=== PATIENT | female | born 1975 | race Two or more races ===

== ENCOUNTER 2020-09-06 08:37 | Outpatient (REF) | payer OTHER, SELFPAY | END 2020-09-06 08:38 | disposition home or self-care (01) | LOC: HO.LAB 08:37 | PROVIDERS: Visit Provider Nurse Practitioner Family | DX: Z20.828 Contact with and (suspected) exposure to other viral communicable diseases (principal) | CPT/HCPCS: U0003 ==

== ENCOUNTER 2020-09-06 08:42 | Outpatient (REF) | payer OTHER, SELFPAY ==
--- NOTE | 2020-09-06 08:49 | XR_ITS ---
EXAMINATION: XR CHEST CLINICAL INFORMATION: J06.9 - Acute upper respiratory infection, unspecified COMPARISON: None TECHNIQUE: 2 views of the chest were obtained. FINDINGS: The lungs are clear. There is no airspace consolidation or groundglass opacity or effusion. The costophrenic sulci are well-defined. The heart is normal in size. Tapering at the cardiac apex is consistent with incidental areolar tissue. The hilar and mediastinal contours are normal. Bony structures are unremarkable. XR/XR chest 2V IMPRESSION: Unremarkable examination.
== END 2020-09-06 08:43 | disposition home or self-care (01) ==
LOC: HO.HMGCX 08:42
PROVIDERS: PCP Internal Medicine; Visit Provider Nurse Practitioner Family
DX: J06.9 Acute upper respiratory infection, unspecified (principal); Z20.828 Contact with and (suspected) exposure to other viral communicable diseases
CPT/HCPCS: 71046

== ENCOUNTER 2020-12-19 09:36 | Outpatient (REF) | payer OTHER, SELFPAY ==
[2020-12-19 10:27] LABS: MANUAL DIFF FLAG NO
[2020-12-19 10:33] LABS: Basophils Percent Auto 0.5 % (0-2); Eosinophils Absolute Auto 0.1 X10*3/uL (0.0-0.4); Eosinophils Percent Auto 1.2 % (0-4); Hematocrit 43.8 % (37-47); Hemoglobin 14.4 g/dl (12.0-16.0); Imm Gran Abs Auto 0.02 X10*3/uL (0.00-0.03); Imm Gran Pct Auto 0.3 % (0.0-0.4); Lymphocytes Absolute Auto 1.8 X10*3/uL (1.2-4.9); Lymphocytes Percent Auto 24.8 % (20-40); Mean Corpuscular HGB Conc 32.9 g/dl (31.0-35.0); Mean Corpuscular Hemoglobin 30.9 pg (27.0-33.0); Mean Platelet Volume 10.5 fL (9.4-12.3); Monocytes Absolute Auto 0.5 X10*3/uL (0.1-1.2); Monocytes Percent Auto 6.6 % (2-11); Neutrophils Absolute Auto 4.9 X10*3/uL (2.0-8.3); Neutrophils Percent Auto 66.6 % (45-73); Platelet Count 306 X10*3/uL (160-400); Red Blood Count 4.66 X10*6/uL (4.20-5.50); Red Cell Distribution Width 12.9 % (11.0-16.0); White Blood Count 7.3 X10*3/uL (4.8-10.8)
[2020-12-19 11:22] LABS: Thyroid Stimulating Hormone 0.54 uIU/mL (0.32-4.0)
[2020-12-25 13:11] LABS: Vitamin D 25-OH, D2 <4 ng/mL; Vitamin D 25-OH, D3 6 ng/mL; Vitamin D 25-OH, Total 6 ng/mL (30-100)
== END 2020-12-19 09:37 | disposition home or self-care (01) ==
LOC: HO.LAB 09:36
PROVIDERS: PCP Internal Medicine; Visit Provider Internal Medicine
DX: D64.9 Anemia, unspecified (principal); R53.83 Other fatigue; E55.9 Vitamin D deficiency, unspecified
CPT/HCPCS: 36415; 82306; 84443; 85025

== ENCOUNTER 2021-03-29 06:00 | Outpatient (REF) | payer OTHER, SELFPAY ==
[2021-03-29 14:35] LABS: Glucose Urine UA NEG (NEG); Leukocyte Esterase Urine 2+ (NEG); Nitrite Urine NEG (NEG); Specific Gravity - Urine <= 1.005 (1.005-1.025); UACC Culture Trigger YES; Urine Blood TRACE (NEG); Urine Ketones NEG (NEG); Urine Protein NEG (NEG-TRACE)
[2021-03-29 14:37] LABS: Appearance Urine HAZY; Color Urine YELLOW
[2021-03-29 14:53] LABS: Bacteria Urine 1+ /LPF; Squamous Epithelial Cell Urine 2+ /LPF
== END 2021-03-29 06:01 | disposition home or self-care (01) ==
LOC: HO.LAB 06:00
PROVIDERS: PCP Internal Medicine; Visit Provider Internal Medicine
DX: R30.0 Dysuria (principal)
CPT/HCPCS: 81001; 81003; 87086

== ENCOUNTER 2021-05-01 08:48 | Outpatient (REF) | payer OTHER, SELFPAY ==
[2021-05-04 02:56] LABS: HPV mRNA E6/E7 rflx Not Detected (Not Detected)
== END 2021-05-01 08:49 | disposition home or self-care (01) ==
LOC: HO.LAB 08:48
PROVIDERS: PCP Internal Medicine; Visit Provider Obstetrics & Gynecology
DX: Z01.419 Encounter for gynecological examination (general) (routine) without abnormal findings (principal); Z11.51 Encounter for screening for human papillomavirus (HPV)
CPT/HCPCS: 87624; 88142

== ENCOUNTER 2021-05-11 05:58 | Outpatient (REF) | payer OTHER, SELFPAY ==
[2021-05-11 07:30] LABS: Glucose Urine UA NEG (NEG); Leukocyte Esterase Urine TRACE (NEG); Nitrite Urine NEG (NEG); PH 6.5 (5.0-8.0); Specific Gravity - Urine 1.015 (1.005-1.025); UACC Culture Trigger YES; Urine Blood TRACE (NEG); Urine Ketones NEG (NEG); Urine Protein NEG (NEG-TRACE)
[2021-05-11 07:34] LABS: Appearance Urine HAZY; Color Urine YELLOW
[2021-05-11 08:20] LABS: Bacteria Urine 1+ /LPF; Mucus Urine 1+ /LPF; Squamous Epithelial Cell Urine 3+ /LPF
== END 2021-05-11 05:59 | disposition home or self-care (01) ==
LOC: HO.LAB 05:58
PROVIDERS: PCP Internal Medicine; Visit Provider Internal Medicine
DX: R30.0 Dysuria (principal)
CPT/HCPCS: 81001; 87086

== ENCOUNTER 2021-06-28 15:11 | Outpatient (REF) | payer OTHER, SELFPAY | END 2021-06-28 15:12 | disposition home or self-care (01) | LOC: HO.LAB 15:11 | PROVIDERS: PCP Internal Medicine; Visit Provider Internal Medicine | DX: Z13.89 Encounter for screening for other disorder (principal) ==

== ENCOUNTER 2021-06-29 09:24 | Outpatient (REF) | payer OTHER, SELFPAY ==
[2021-06-29 09:36] LABS: Appearance Urine CLOUDY; Color Urine YELLOW; Glucose Urine UA NEG (NEG); Leukocyte Esterase Urine 3+ (NEG); Nitrite Urine NEG (NEG); Specific Gravity - Urine 1.025 (1.005-1.025); UACC Culture Trigger YES; Urine Blood TRACE (NEG); Urine Ketones NEG (NEG); Urine Protein NEG (NEG-TRACE)
[2021-06-29 09:56] LABS: WBC Urine TNTC /HPF (0-4)
[2021-06-29 09:57] LABS: Bacteria Urine 1+ /LPF; Mucus Urine TRACE /LPF
== END 2021-06-29 09:25 | disposition home or self-care (01) ==
LOC: HO.LNP 09:24
PROVIDERS: Visit Provider Internal Medicine
DX: R30.0 Dysuria (principal)
CPT/HCPCS: 81001; 87086; 87147

== ENCOUNTER 2021-09-21 10:50 | Outpatient (REF) | payer OTHER, SELFPAY | END 2021-09-21 10:51 | disposition home or self-care (01) | LOC: HO.LAB 10:50 | PROVIDERS: PCP Internal Medicine; Visit Provider Internal Medicine | DX: Z13.89 Encounter for screening for other disorder (principal) ==

== ENCOUNTER 2021-09-22 10:32 | Outpatient (REF) | payer OTHER, SELFPAY ==
[2021-09-22 10:38] LABS: Appearance Urine CLOUDY; Color Urine YELLOW; Glucose Urine UA NEG (NEG); Leukocyte Esterase Urine 3+ (NEG); Nitrite Urine POS (NEG); UACC Culture Trigger YES; Urine Blood 3+ (NEG); Urine Ketones NEG (NEG); Urine Protein NEG (NEG-TRACE)
[2021-09-22 10:44] LABS: Bacteria Urine 2+ /LPF; Squamous Epithelial Cell Urine 1+ /LPF; WBC Urine TNTC /HPF (0-4)
== END 2021-09-22 10:33 | disposition home or self-care (01) ==
LOC: HO.LNP 10:32
PROVIDERS: Visit Provider Internal Medicine
DX: R30.0 Dysuria (principal)
CPT/HCPCS: 81001; 87086; 87088; 87186

== ENCOUNTER 2021-10-04 09:04 | Emergency (ER) | payer OTHER, SELFPAY ==
--- NOTE | ~2021-10-04 | CT_ITS ---
EXAMINATION: CT BRAIN AND CT ABDOMEN AND PELVIS WITHOUT CONTRAST. CLINICAL INFORMATION: Headache and lightheadedness. Left flank pain, history of UTI. Evaluate for stone or polyp. COMPARISON: None TECHNIQUE: 5 mm thin axial and reformatted 2 mm thin sagittal and coronal images of brain were obtained. Subsequently axial 5 minutes thin and reformatted 3 mm thin sagittal and coronal images of abdomen pelvis were obtained without contrast. DLP 1351. FINDINGS: Brain: There is no acute intra-axial, extra-axial bleed, masses or midline shift. There is no acute infarction in evolution. There is no edema. The lateral ventricles are symmetrical in size and configuration without enlargement. The joe to white matter differentiation is maintained normal. Bone windows reveal no calvarial abnormality.. There is no scalp abnormality seen. Bilateral paranasal sinuses and mastoid air cells are widely patent. Abdomen and pelvis: The lung bases are clear. There is platelike atelectasis in the lingula and the right middle lobe. Heart size is normal. Visualized liver, spleen, pancreas and bilateral adrenal glands are unremarkable. The gallbladder is unremarkable as well. There 2 radiopaque 2 mm calculi is in upper and midpole right kidney and a partially obstructive 4 mm radiopaque calculi left UPJ with mild hydronephrosis. No perinephric stranding seen. The abdominal aorta is normal caliber. No retroperitoneal lymph nodes or mass seen. There is scattered stool, diverticuli and gas seen throughout the colon without significant distention. The small bowel loops are normal caliber. Appendix is not visualized. The abdominal wall appears unremarkable. There is no free air or free fluid. Imaging through the pelvis reveals no significant abnormality. The uterus is anteverted and appears unremarkable. There is no free fluid. Bone windows reveal no lytic or sclerotic process. CT/CT abdomen pelvis wo con IMPRESSION: No acute intracranial process seen. Obstructive 4 mm radiopaque calculi left UPJ with mild hydronephrosis. Nonobstructive radiopaque calculi right kidney. Colonic diverticulosis without diverticulitis. Appendix is not seen.
[2021-10-04 09:38] VITALS: BP 188/113; PULSE 89; RESP 19; TEMP 36.6; O2SAT 99; BMI 34.3
[2021-10-04 13:34] VITALS: BP 159/95; PULSE 79; RESP 12; O2SAT 100
[2021-10-04 13:51] LABS: MANUAL DIFF FLAG NO
[2021-10-04 13:52] LABS: Basophils Percent Auto 0.3 % (0-2); Eosinophils Absolute Auto 0.1 X10*3/uL (0.0-0.4); Eosinophils Percent Auto 1.4 % (0-4); Hematocrit 40.4 % (37.0-47.0); Hemoglobin 13.5 g/dl (12.0-16.0); Imm Gran Abs Auto 0.03 X10*3/uL (0.00-0.03); Imm Gran Pct Auto 0.5 % (0.0-0.4); Lymphocytes Absolute Auto 2.3 X10*3/uL (1.2-4.9); Mean Corpuscular HGB Conc 33.4 g/dl (31.0-35.0); Mean Corpuscular Hemoglobin 30.4 pg (27.0-33.0); Mean Platelet Volume 9.1 fL (9.4-12.3); Monocytes Absolute Auto 0.5 X10*3/uL (0.1-1.2); Monocytes Percent Auto 7.8 % (2-11); Neutrophils Absolute Auto 3.4 x10*3/uL (2.0-8.3); Platelet Count 353 X10*3/uL (160-400); Red Blood Count 4.44 X10*6/uL (4.20-5.50); Red Cell Distribution Width 12.7 % (11.0-16.0); White Blood Count 6.3 X10*3/uL (4.8-10.8)
[2021-10-04 13:53] LABS: Appearance Urine CLOUDY; Color Urine YELLOW; Glucose Urine UA NEG (NEG); Leukocyte Esterase Urine 3+ (NEG); Nitrite Urine POS (NEG); Specific Gravity - Urine 1.015 (1.005-1.025); UACC Culture Trigger YES; Urine Blood 1+ (NEG); Urine Ketones NEG (NEG); Urine Protein NEG (NEG-TRACE)
[2021-10-04] MEDS: 0.9 % Sodium Chloride 1,000 ML 999 ML IV ×2 (13:55→14:36)
[2021-10-04] MEDS: Acetaminophen 325 MG TABLET 650 MG PO (13:57)
[2021-10-04] MEDS: ondansetron HCL 4 MG/2 ML VIAL IVPUSH (13:57)
[2021-10-04 14:05] LABS: Bacteria Urine 3+ /LPF; RBC Urine 0-2 /HPF (0); Squamous Epithelial Cell Urine 2+ /LPF; WBC Urine 50-75 /HPF (0-4)
[2021-10-04 14:09] LABS: Alanine Aminotransferase 62 U/L (0-31); Albumin Level 3.5 g/dL (3.5-5.0); Alkaline Phosphatase 100 U/L (39-117); Anion Gap 12 (12-20); Aspartate Amino Transferase 36 U/L (5-31); Bilirubin Direct 0.2 mg/dL (0.0-0.5); Bilirubin Total 0.6 mg/dL (0.0-1.0); Blood Urea Nitrogen 13 mg/dL (9-16); Carbon Dioxide 27 mmol/L (22-29); Chloride 104 mmol/L (96-108); Creatinine Clr Calc Pharmacy 91.4; Estimated Glomerular Filt Rate > 60; Glucose Random 81 mg/dL (60-115); Lipase 181 U/L (8-78); Magnesium 1.8 mg/dL (1.6-2.6); Potassium 3.7 mmol/L (3.3-5.1); Sodium 139 mmol/L (135-145); Total Protein 7.3 g/dL (6.5-8.0)
--- NOTE | 2021-10-04 14:11 | ED.GENADULT ---
HPI - General Adult General Chief complaint: General Medical Stated complaint: high bp Time Seen by Provider: 10/04/21 13:07 Source: patient Mode of arrival: ambulatory History of Present Illness HPI narrative: 45-year-old female with a past medical history of asthma, diarrhea, depression, fatigue, recent UTI finish course of Macrobid this week, presenting to the ED complaining of persistent urinary frequency, and left flank pain x3 days. Was sent in from PCPs office for hypertension and left flank pain. Also reports headache and lightheadedness/dizziness since UTI diagnosis. Reports compliance with previous antibiotics. Denies fever, chills, vomiting, diarrhea, dysuria, hematuria Onset (ago): day(s) Related Data Home Medications Medication Instructions Recorded Confirmed fluticasone furoate 27.5 INTRANASAL 09/06/20 10/04/21 mcg/actuation nasal spray,suspension hydroxyzine HCl 25 mg tablet 25 mg PO BID 05/01/21 10/04/21 bupropion HCl 150 mg 24 hr tablet, 150 mg PO BEDTIME 08/30/21 10/04/21 extended release oxcarbazepine 300 mg tablet 300 mg PO BID tab 08/30/21 10/04/21 naproxen 500 mg tablet 500 mg PO BID 10/04/21 10/04/21 Previous Rx's Medication Instructions Recorded umeclidinium 62.5 mcg-vilanterol 1 ea INHALATION DAILY 30 Days #60 10/24/20 25 mcg/actuation powdr for ea inhalation cetirizine 10 mg tablet 10 mg PO DAILY 90 Days #90 tab 05/10/21 albuterol sulfate 90 mcg/actuation 2 puff PO Q6H PRN 30 Days #8.5 g 05/22/21 aerosol inhaler zdstikurbd-dfilzqyqposmq-uevhiulc 1 cap PO Q6H PRN 1 Days #6 cap 08/30/21 50 mg-325 mg-40 mg capsule ergocalciferol (vitamin D2) 1,250 1,250 mcg PO QWEEK 30 Days #5 cap 09/10/21 mcg (50,000 unit) capsule ketorolac 10 mg tablet 10 mg PO TID PRN 5 Days #15 tab 10/04/21 levofloxacin 500 mg tablet 500 mg PO DAILY #5 tab 10/04/21 tamsulosin 0.4 mg capsule (Flomax) 0.4 mg PO DAILY #14 cap 10/04/21 Allergies Allergy/AdvReac Type Severity Reaction Status Date / Time Penicillins [PENICILLINS] Allergy Severe rash Verified 10/04/21 08:40 Review of Systems Review of Systems: Constitutional: No Fever, No Chills, No Fatigue, No Malaise ENT/Mouth: No Ear Pain, No Nasal Congestion, No sore throat Eyes: No Eye Pain, No Swelling, No Redness Cardiovascular: No Chest Pain, No SOB Respiratory: No Cough, No Sputum, No Wheezing, No Smoke Exposure, No Dyspnea Gastrointestinal: No Nausea, No Vomiting, No Diarrhea, No Constipation, No Abdominal pain Genitourinary: No Dysuria, + Urinary Frequency, No Hematuria, No Urinary Incontinence, + Urgency, + Flank Pain, No Urinary Flow Changes Musculoskeletal: No joint pain, No Myalgias, No Joint Swelling Skin: No Skin Lesions, No rash Neuro: No Weakness, No Dizziness, No Headache Yes all other systems are reviewed and are negative FOR[facility]LY [facility] Past Medical History Attestation statement: The following information was validated with the patient. Medical History Asthma Chronic diarrhea Depression Fatigue Hypovitaminosis D Surgical History History of tubal ligation Family History Family History Father Liver disease Mother Diabetes CKD (chronic kidney disease) Depression Family/Other FH: mental illness Brother Heroin abuse Social History Social History Housing: Apartment Alcohol intake: current Alcohol intake frequency: holidays/special occasions only Patient Tobacco Use Status: Never used Tobacco Smoked in Last 30 Days: No e-Cigarette/Vaping Use: Never Used Second Hand Smoke Exposure: No Use of substances other than those prescribed or required for medical reasons: Yes Substance Use Type: Marijuana Advance Directives: No Advance Directives Information Provided: No Patient : No Current occupational status: employed Cognitive needs: No Hearing needs: No Vision needs: No Physical Exam Vital Signs: Vital Signs: Last Vital Signs Temp 98.2 F 10/04/21 15:16 Pulse 83 10/04/21 15:16 Resp 16 10/04/21 15:16 BP 153/95 H 10/04/21 15:16 Pulse Ox 100 10/04/21 15:16 BMI result Body Mass Index 34.3 Const: General: cooperative, healthy appearing and no acute distress Orientation/consciousness: patient oriented x3 Limitations: no limitations HENMT: Head: Yes normal to inspection Ears: hearing grossly normal bilaterally General nose exam: Normal external nose present Face and sinus: Yes normal facial exam Eyes: General: appearance normal, both eyes and all related structures EOM: EOMs intact bilaterally Neck: Neck: Yes normal visual inspection Resp: Effort & Inspection: normal respiratory effort and no respiratory distress Auscultation: clear to auscultation bilaterally Cardio: Rate: regular rate Heart sounds: S1 normal heart sound present and S2 normal heart sound present GI: Inspection: Yes normal to inspection Palpation (GI): Soft to palpation, nontender, no guarding and not rigid : General: Yes CVA tenderness on the left Back/Spine/Pelvis: Back: CVA tenderness Skin: Rashes: no rashes Wounds: no wounds Neuro: General: patient oriented x3 Gait exam (Neuro): Normal gait present Extrem: General: Yes normal to inspection Course Course Course Narrative: -1412--no leukocytosis. H&H stable, AST/ALT mildly elevated, lipase 181 > likely from renal dz, no evidence of acute pancreatitis at this time as abdomen is soft/nontender -UA infected > urine culture from 09/22 susceptible to Ceftriaxone, Levaquin, and Macrobid which patient just finished course of Macrobid>> will give dose of IV Rocephin in the ED. Patient does not meet severe sepsis criteria CT head/brain wo con / CT head/brain wo con IMPRESSION: No acute intracranial process seen. Obstructive 4 mm radiopaque calculi left UPJ with mild hydronephrosis. Nonobstructive radiopaque calculi right kidney. Colonic diverticulosis without diverticulitis. Appendix is not seen.? >> urology consulted -[id number]--On re-evaluation patient reports pain has resolved. BP improved. Is tolerating p.o. in the ED without difficulty > Dr. Mcginnis reccommended d/c Home with Levaquin 500 mg daily for the next 5 days & Plan for a telehealth follow-up visit on Saturday. Discussed with patient worrisome signs and symptoms including constant persisting/unremitting pain, persistent nausea/vomiting, or fever to return to the ED immediately. She verbalized understanding feel safe for discharge home Medical Decision Making MDM Narrative Medical decision making narrative: 45-year-old female with a past medical history of asthma, diarrhea, depression, fatigue, recent UTI finish course of Macrobid this week, presenting to the ED complaining of persistent urinary frequency, and left flank pain x3 days. On exam initially hypertensive likely from pain, abdomen soft/nontender, + left CVAT. Concern for pyelo/UTI vs renal stone. Concern for hypertensive urgency/emergency. Lower concern for appendicitis/diverticulitis or cholecystitis without tenderness on exam Plan: Labs, UA, CT AP, CT head, re-evaluate Medical Records Medical records reviewed: Yes I reviewed the patient's medical records. Lab Data Lab results reviewed: Yes I reviewed the patient's lab results. Result diagrams: 10/04/21 13:43 10/04/21 13:43 Labs: Lab Results 10/04/21 10/04/21 10/04/21 Range/Units 13:42 13:43 13:43 WBC 6.3 (4.8-10.8) X10*3/uL RBC 4.44 (4.20-5.50) X10*6/uL Hgb 13.5 (12.0-16.0) g/dl Hct 40.4 (37.0-47.0) % MCV 91.0 (80.0-98.0) fL MCH 30.4 (27.0-33.0) pg MCHC 33.4 (31.0-35.0) g/dl RDW 12.7 (11.0-16.0) % Plt Count 353 (160-400) X10*3/uL MPV 9.1 L (9.4-12.3) fL Immature Gran % (Auto) 0.5 H (0.0-0.4) % Neut % (Auto) 54.0 (45-73) % Lymph % (Auto) 36.0 (20-40) % Burke % (Auto) 7.8 (2-11) % Eos % (Auto) 1.4 (0-4) % Baso % (Auto) 0.3 (0-2) % Lymph # (Auto) 2.3 (1.2-4.9) X10*3/uL Burke # (Auto) 0.5 (0.1-1.2) X10*3/uL Eos # (Auto) 0.1 (0.0-0.4) X10*3/uL Baso # (Auto) 0.0 (0.0-0.2) X10*3/uL Abs Immat Gran (auto) 0.03 (0.00-0.03) X10*3/uL Absolute Neuts (auto) 3.4 (2.0-8.3) x10*3/uL Absolute Nucleated RBC 0.000 (0.0-0.012) X10*3/uL Nucleated RBC % (auto) 0.0 (0.0-0.2) /100WBC Sodium 139 (135-145) mmol/L Potassium 3.7 (3.3-5.1) mmol/L Chloride 104 (96-108) mmol/L Carbon Dioxide 27 (22-29) mmol/L Anion Gap 12 (12-20) BUN 13 (9-16) mg/dL Creatinine 0.80 (0.5-1.4) mg/dL Estim Creat Clear Calc 91.4 Estimated GFR > 60 Random Glucose 81 (60-115) mg/dL Lactic Acid (0.5-2.0) mmol/L Calcium 9.0 (8.4-10.2) mg/dL Magnesium 1.8 (1.6-2.6) mg/dL Total Bilirubin 0.6 (0.0-1.0) mg/dL Direct Bilirubin 0.2 (0.0-0.5) mg/dL AST 36 H (5-31) U/L ALT 62 H (0-31) U/L Alkaline Phosphatase 100 (39-117) U/L Total Protein 7.3 (6.5-8.0) g/dL Albumin 3.5 (3.5-5.0) g/dL Lipase 181 H (8-78) U/L Urine Color YELLOW Urine Appearance CLOUDY Urine pH 7.0 (5.0-8.0) Ur Specific [place] 1.015 (1.005-1.025) Urine Protein NEG (NEG-TRACE) MG/DL Urine Glucose (UA) NEG (NEG) MG/DL Urine Ketones NEG (NEG) MG/DL Urine Blood 1+ H (NEG) Urine Nitrite POS H (NEG) Ur Leukocyte Esterase 3+ H (NEG) Urine RBC 0-2 (0) /HPF Urine WBC 50-75 H (0-4) /HPF Ur Squamous Epith Cells 2+ /LPF Urine Bacteria 3+ /LPF 10/04/21 Range/Units 14:45 WBC (4.8-10.8) X10*3/uL RBC (4.20-5.50) X10*6/uL Hgb (12.0-16.0) g/dl Hct (37.0-47.0) % MCV (80.0-98.0) fL MCH (27.0-33.0) pg MCHC (31.0-35.0) g/dl RDW (11.0-16.0) % Plt Count (160-400) X10*3/uL MPV (9.4-12.3) fL Immature Gran % (Auto) (0.0-0.4) % Neut % (Auto) (45-73) % Lymph % (Auto) (20-40) % Burke % (Auto) (2-11) % Eos % (Auto) (0-4) % Baso % (Auto) (0-2) % Lymph # (Auto) (1.2-4.9) X10*3/uL Burke # (Auto) (0.1-1.2) X10*3/uL Eos # (Auto) (0.0-0.4) X10*3/uL Baso # (Auto) (0.0-0.2) X10*3/uL Abs Immat Gran (auto) (0.00-0.03) X10*3/uL Absolute Neuts (auto) (2.0-8.3) x10*3/uL Absolute Nucleated RBC (0.0-0.012) X10*3/uL Nucleated RBC % (auto) (0.0-0.2) /100WBC Sodium (135-145) mmol/L Potassium (3.3-5.1) mmol/L Chloride (96-108) mmol/L Carbon Dioxide (22-29) mmol/L Anion Gap (12-20) BUN (9-16) mg/dL Creatinine (0.5-1.4) mg/dL Estim Creat Clear Calc Estimated GFR Random Glucose (60-115) mg/dL Lactic Acid 0.7 (0.5-2.0) mmol/L Calcium (8.4-10.2) mg/dL Magnesium (1.6-2.6) mg/dL Total Bilirubin (0.0-1.0) mg/dL Direct Bilirubin (0.0-0.5) mg/dL AST (5-31) U/L ALT (0-31) U/L Alkaline Phosphatase (39-117) U/L Total Protein (6.5-8.0) g/dL Albumin (3.5-5.0) g/dL Lipase (8-78) U/L Urine Color Urine Appearance Urine pH (5.0-8.0) Ur Specific [place] (1.005-1.025) Urine Protein (NEG-TRACE) MG/DL Urine Glucose (UA) (NEG) MG/DL Urine Ketones (NEG) MG/DL Urine Blood (NEG) Urine Nitrite (NEG) Ur Leukocyte Esterase (NEG) Urine RBC (0) /HPF Urine WBC (0-4) /HPF Ur Squamous Epith Cells /LPF Urine Bacteria /LPF Discharge Plan Discharge Clinical Impression: Obstruction of left ureteropelvic junction (UPJ) due to stone UTI (urinary tract infection) Qualifiers: Urinary tract infection type: site unspecified Hematuria presence: without hematuria Qualified Code(s): N39.0 - Urinary tract infection, site not specified Patient Disposition: Home, Self-Care Additional Instructions: You have a urinary tract infection. Levaquin is an antibiotic please take as prescribed You also have a 4 mm obstructing stone on her left side. 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 Ketorolac it is a an anti-inflammatory pain medication, take with food It is important for you to follow-up with urologist, the plan is for a telehealth visit on Saturday If her pain persists/worsens, becomes unbearable, you develop fever, persistent nausea/vomiting, or your unable to urinate please return to the ED immediately Prescriptions: New tamsulosin [Flomax] 0.4 mg capsule 0.4 mg PO DAILY Qty: 14 RF: 0 levofloxacin 500 mg tablet 500 mg PO DAILY Qty: 5 RF: 0 ketorolac 10 mg tablet 10 mg PO TID PRN (Reason: pain) 5 Days Qty: 15 RF: 0 No Action umeclidinium-vilanterol 62.5-25 mcg/actuation blister with device 1 ea inhalation DAILY 30 Days Qty: 60 RF: 6 cetirizine 10 mg tablet 10 mg PO DAILY 90 Days Qty: 90 RF: 1 albuterol sulfate 90 mcg/actuation HFA aerosol inhaler 2 puff PO Q6H PRN (Reason: for wheezing) 30 Days Qty: 8.5 RF: 6 evzxklybfd-nveergbzcdied-dggv 50-325-40 mg capsule 1 cap PO Q6H PRN (Reason: pain) 1 Days Qty: 6 RF: 0 ergocalciferol (vitamin D2) 1,250 mcg (50,000 unit) capsule 1,250 mcg PO QWEEK 30 Days Qty: 5 RF: 3 Flonase Sensimist 27.5 mcg/actuation spray,suspension intranasal RF: 0 bupropion HCl 150 mg tablet extended release 24 hr 150 mg PO BEDTIME RF: 0 naproxen 500 mg tablet 500 mg PO BID RF: 0 hydroxyzine HCl 25 mg tablet 25 mg PO BID RF: 0 oxcarbazepine 300 mg tablet 300 mg PO BID RF: 0 Referrals: Devon Mcginnis MD [Physician] - 2 days
[2021-10-04 15:02] LABS: Lactic Acid 0.7 mmol/L (0.5-2.0)
[2021-10-04] MEDS: cefTRIAXone sodium 1 GM in 0.9 % Sodium Chloride 50 ML IV (15:12)
[2021-10-04 15:16] VITALS: BP 153/95; PULSE 83; RESP 16; TEMP 36.8; O2SAT 100
[2021-10-04] MEDS: Ketorolac Tromethamine 30 MG/ML VIAL 15 MG IVPUSH (17:22)
[2021-10-04] MEDS: Tamsulosin HCL 0.4 MG CAPSULE PO (17:23)
== END 2021-10-04 17:45 | disposition home or self-care (01) ==
PROVIDERS: Physician Assistant; Emergency Provider Internal Medicine; PCP Internal Medicine
DX: N13.2 Hydronephrosis with renal and ureteral calculous obstruction (principal); N39.0 Urinary tract infection, site not specified; F12.90 Cannabis use, unspecified, uncomplicated
CPT/HCPCS: 36415; 70450; 74176; 80048; 80076; 81001; 83605; 83690; 83735; 85025; 87040; 87086; 87088; 87186; 96361; 96365; 96375; 99284; J0696; J1885; J2405

== ENCOUNTER → 2021-10-06 09:30 | Outpatient (BNVA) | payer OTHER, SELFPAY | PROVIDERS: PCP Internal Medicine; Visit Provider Urology ==

== ENCOUNTER 2021-10-11 08:05 | Day surgery (SDC) | payer OTHER, SELFPAY ==
--- NOTE | 2021-10-10 11:35 | P.CONAN_ITS ---
Documented by User: Noemi Romo NP 10/10/21 11:36 HPI - Anesthesia Eval Consult details Narrative: 45yo F for Left Lithotripsy ESW PMFSH Active Problems Active Problems: All Active Problems (Updated 10/06/21 @ 10:54 by Devon Mcginnis MD) Nephrolithiasis (Acute) Left flank pain (Acute) Bilateral flank pain (Acute) Hematuria (Acute) Migraine (Acute) Arthritis (Acute) Fibromyalgia (Acute) Polyarthralgia (Acute) Left leg numbness (Acute) Left arm numbness (Acute) Well woman exam (Acute) Hypovitaminosis D (Acute) Fatigue (Acute) Chronic diarrhea (Acute) Asthma (Acute) Sinusitis chronic, ethmoidal (Acute) URI (upper respiratory infection) (Acute) Depression (Acute) Past Medical History Medical History Asthma Chronic diarrhea Depression Fatigue Hypovitaminosis D Family History Family History Father Liver disease Mother Diabetes CKD (chronic kidney disease) Depression Family/Other FH: mental illness Brother Heroin abuse Surgical History Surgical History History of tubal ligation Social History Social History Housing: Apartment Alcohol intake: current Alcohol intake frequency: holidays/special occasions only Patient Tobacco Use Status: Never used Tobacco e-Cigarette/Vaping Use: Never Used Second Hand Smoke Exposure: No Substance Use Type: Marijuana Are you DNR?: No Advance Directives: No Advance Directives Information Provided: Yes Nutrition Risks: No Nutritional Risk Patient : No Current occupational status: employed Cognitive needs: No Hearing needs: No Vision needs: No Meds Allergies Allergy/AdvReac Type Severity Reaction Status Date / Time Penicillins [PENICILLINS] Allergy Severe rash Verified 10/06/21 09:31 Home Medications Medication Instructions Recorded Confirmed Last Taken Type fluticasone furoate 27.5 INTRANASAL 09/06/20 10/04/21 Unknown History mcg/actuation nasal spray,suspension hydroxyzine HCl 25 mg tablet 25 mg PO BID 05/01/21 10/04/21 Unknown History bupropion HCl 150 mg 24 hr tablet, 150 mg PO BEDTIME 08/30/21 10/04/21 Unknown History extended release oxcarbazepine 300 mg tablet 300 mg PO BID tab 08/30/21 10/04/21 Unknown History naproxen 500 mg tablet 500 mg PO BID 10/04/21 10/04/21 Unknown History diclofenac sodium 75 mg 75 mg PO BID 10/06/21 Unknown History tablet,delayed release Exam Exam Date and Time: October 10, 2021 113 Pertinent Lab Results Pertinent Lab Results: Laboratory Tests 10/04/21 10/04/21 13:43 13:43 WBC 6.3 Hgb 13.5 Hct 40.4 Plt Count 353 Sodium 139 Potassium 3.7 Chloride 104 Carbon Dioxide 27 BUN 13 Creatinine 0.80 Assessment and Plan Assessment Anesthesia Assessment: Chart Reviewed Documented by User: Sandra Richards MD 10/11/21 10:01 [facility] [place] Past Medical History Medical History Asthma Chronic diarrhea Depression Fatigue Hypovitaminosis D Functional capacity: independent ambulation Patient : No Family History Family History Father Liver disease Mother Diabetes CKD (chronic kidney disease) Depression Family/Other FH: mental illness Brother Heroin abuse Family history of problems with anesthesia: No Surgical History Surgical History History of tubal ligation History of Problems with Anesthesia: No Social History Social History Housing: Apartment Alcohol intake: current Alcohol intake frequency: holidays/special occasions only Patient Tobacco Use Status: Never used Tobacco e-Cigarette/Vaping Use: Never Used Second Hand Smoke Exposure: No Substance Use Type: Marijuana Are you DNR?: No Advance Directives: No Advance Directives Information Provided: Yes Nutrition Risks: No Nutritional Risk Patient : No Current occupational status: employed Cognitive needs: No Hearing needs: No Vision needs: No Meds Allergies Allergy/AdvReac Type Severity Reaction Status Date / Time Penicillins [PENICILLINS] Allergy Severe rash Verified 10/06/21 09:31 Home Medications Medication Instructions Recorded Confirmed Last Taken Type fluticasone furoate 27.5 INTRANASAL 09/06/20 10/04/21 Unknown History mcg/actuation nasal spray,suspension hydroxyzine HCl 25 mg tablet 25 mg PO BID 05/01/21 10/04/21 Unknown History bupropion HCl 150 mg 24 hr tablet, 150 mg PO BEDTIME 08/30/21 10/04/21 Unknown History extended release oxcarbazepine 300 mg tablet 300 mg PO BID tab 08/30/21 10/04/21 Unknown History naproxen 500 mg tablet 500 mg PO BID 10/04/21 10/04/21 Unknown History diclofenac sodium 75 mg 75 mg PO BID 10/06/21 Unknown History tablet,delayed release Exam Airway Mallampati Class: III TM Dist: >3cm Heart: RRR Lungs: CTA Assessment and Plan Final Anesthetic Review Family History of Problems with Anesthesia: No History of Problems with Anesthesia: No Final Preanesthetic Review: No Changes in Pt Med Stat, Meds/Allgs Chart Reviewed, Consent Obtained/Reviewed and Anes Risks/Benef Reviewed Patient Risk: Low Procedure Risk: Low Anesthetic Plan Anesthetic Plan: GA Disposition: Standard PACU
--- NOTE | ~2021-10-11 | XR_ITS ---
EXAMINATION: XR ABDOMEN KUB CLINICAL INDICATION: Left renal stone COMPARISON: CT scan of October 04, 2021 TECHNIQUE: AP view of the abdomen. FINDINGS: The bowel gas pattern is normal with no evidence of ileus or obstruction. The bones are unremarkable. Along the left side of the L2 -3 level there is a 4 mm calculus which is essentially unchanged in position compared to CT scan of October 04, 2021 where the calculus was seen to lie within the proximal left ureter. A few phleboliths are seen about the lower pelvis.. XR/XR KUB IMPRESSION: No significant change in location of left ureteral calculus compared to CT scan of October 04, 2021
[2021-10-11 06:23] VITALS: BMI 34.5
[2021-10-11 08:35] VITALS: BP 141/88; PULSE 91; RESP 18; TEMP 36.1; O2SAT 99
[2021-10-11] MEDS: Lactated Ringers 1,000 ML 100 ML IVCONT (08:52)
--- NOTE | 2021-10-11 09:56 | MHC.SHP ---
Pre-Procedural Eval Section A Date of Service: 10/11/21 The patient is an INPATIENT: No Changes since office visit: No Cold of Flu in the past 2 weeks, No New Medical Problems, No Changes in Medication and No Patient answered all questions The History & Physical has been completed within 30 days and I have reviewed it.: Yes Section B Chief Complaint: kidney stone Allergies: Allergies Allergy/AdvReac Type Severity Reaction Status Date / Time Penicillins [PENICILLINS] Allergy Severe rash Verified 10/06/21 09:31 Plan Diagnosis/Plan: Unchanged (Left ESWL) I have reviewed the history and physical and performed a pertinent physical examination on my patient. No changes have occurred unless specified.
--- NOTE | 2021-10-11 10:49 | W.PM.OPN ---
Operative Note Operative Note Date of Service: 10/11/21 Narrative: PreOperative Diagnosis: Left proximal ureteric stones Post Operative Diagnosis: Left proximal ureteric Renal stones Procedure: Left proximal ureteric ESWL Surgeon: Dr Devon Mcginnis Anesthesia: mac/sedation Indications for procedure: The patient understands ESWL may be a staged procedure and subsequent intervention may be required based on imaging after ESWL. They also understand there is a risk of bleeding to the kidney, infection, damage to adjacent organs, and stone migration following the procedure. - Imaging CT scan with left proximal ureteric 4 mm - 2500 shocks used since stone lined up with lower pole of kidney Procedure: After informed consent was verified the patient was brought to the operating room and placed in a supine position. Anesthesia was performed per protocol. Safety pause time-out was performed. Imaging was displayed in the room and laterality confirmed. ESWL was performed. The 1st 500 shocks were performed at 60 hertz. These were performed with increasing power. Once maximum power was reached the rate was increased to 180 hertz. A total of 2500 shocks were given. Targetted imaging with ultrasound/fluoroscopy showed stone smudging suggestive of disintegration. The patient tolerated the procedure well and was transferred to the recovery area upon completion. Post procedure imaging will be organized. There was no evidence for flank discoloration.
[2021-10-11 10:55] VITALS: BP 135/70; PULSE 99; RESP 16; TEMP 36.6; O2SAT 100
--- NOTE | 2021-10-11 10:58 | HO.POSTANES ---
Post Anesthesia Evaluation Post Anesthesia Evaluation Vital Signs: Vital Signs Temp Pulse Resp BP Pulse Ox 10/11/21 08:35 97 F 91 18 141/88 H 99 Anesthesia: General LMA Mental Status: Awake Pain Control: Satisfactory Nausea/Vomiting: None Hydration: Adequate Anesthesia-Related Issues: No Anes. Related Issues
[2021-10-11 11:00] VITALS: BP 141/87; PULSE 92; RESP 17; O2SAT 99
--- NOTE | 2021-10-11 11:00 | HO.POSTANES ---
Post Anesthesia Evaluation Post Anesthesia Evaluation Vital Signs: Vital Signs Temp Pulse Resp BP Pulse Ox 10/11/21 11:00 92 17 141/87 H 99 10/11/21 10:55 97.9 F 99 16 135/70 100 10/11/21 08:35 97 F 91 18 141/88 H 99 Anesthesia: General LMA and General Mental Status: Awake Pain Control: Satisfactory Nausea/Vomiting: None Hydration: Adequate Anesthesia-Related Issues: No Anes. Related Issues
[2021-10-11] MEDS: Acetaminophen 325 MG TABLET 650 MG PO (11:02)
[2021-10-11 11:05] VITALS: BP 132/99; PULSE 91; RESP 17; O2SAT 99
[2021-10-11 11:10] VITALS: BP 144/90; PULSE 91; RESP 17; O2SAT 100
[2021-10-11 11:24] VITALS: BP 146/96; PULSE 89; RESP 16; TEMP 36.6; O2SAT 100
[2021-10-11] MEDS: traMADoL HCL 50 MG TABLET PO (11:38)
== END 2021-10-11 11:50 | disposition home or self-care (01) ==
PROVIDERS: PCP Internal Medicine; Visit Provider Urology
PROC: (CPT 50590; principal; 2021-10-11 10:00)
DX: N20.1 Calculus of ureter (principal); N39.0 Urinary tract infection, site not specified; J45.909 Unspecified asthma, uncomplicated; E55.9 Vitamin D deficiency, unspecified; F32.9 Major depressive disorder, single episode, unspecified; K52.9 Noninfective gastroenteritis and colitis, unspecified; R53.83 Other fatigue; Z88.0 Allergy status to penicillin
CPT/HCPCS: 50590; 74018; J1100; J2250; J2405; J3010

== ENCOUNTER 2021-10-26 07:52 | Outpatient (REF) | payer OTHER, SELFPAY ==
--- NOTE | 2021-10-26 10:10 | EMG_ITS ---
Left tibial and peroneal motor studies were performed. Left superficial peroneal and sural sensory studies were performed and tibial H-reflex was obtained. Paraspinal muscles were tested with a needle. IMPRESSION: Chronic left lower lumbar radiculopathy. There was no evidence of neuropathy affecting left leg. MD PAMELLA Davenport/HEDY / [phone]
== END 2021-10-26 07:53 | disposition home or self-care (01) ==
LOC: HO.NEURO 07:52
PROVIDERS: PCP Nurse Practitioner Family; Visit Provider Nurse Practitioner Family
DX: R20.0 Anesthesia of skin (principal)
CPT/HCPCS: 95886; 95909

== ENCOUNTER 2021-11-15 13:01 | Outpatient (REF) | payer OTHER, SELFPAY ==
--- NOTE | ~2021-11-15 | US_ITS ---
EXAMINATION: US RETROPERITONEAL LIMITED (RENAL ONLY) CLINICAL INFORMATION: Calculus of kidney. COMPARISON: XR KUB 10/11/2021. CT abdomen/pelvis 10/04/2021. TECHNIQUE: Real-time imaging of the kidneys. FINDINGS: RIGHT KIDNEY: 10.6 x 4.7 x 5.4 cm (SAG x AP x TRV). The kidney is normal in size, contour, and echogenicity. Renal cortical thickness is normal. No focal parenchymal lesions or hydronephrosis. There is a 0.4 cm calculus in the medial aspect of the lower pole and a 0.3 cm calculus in the upper pole. LEFT KIDNEY: 11.0 x 4.5 x 3.8 cm (SAG x AP x TRV). The kidney is normal in size, contour, and echogenicity. Renal cortical thickness is normal. No focal parenchymal lesions or hydronephrosis. There is a 0.2 cm calculus in the mid pole. US/US renal BI IMPRESSION: Nonobstructive bilateral renal calculi.
== END 2021-11-15 13:02 | disposition home or self-care (01) ==
LOC: HO.US 13:01
PROVIDERS: Visit Provider Urology
DX: N20.0 Calculus of kidney (principal)
CPT/HCPCS: 76775

== ENCOUNTER → 2021-12-11 14:44 | Outpatient (BNVA) | payer OTHER, SELFPAY | PROVIDERS: PCP Internal Medicine | DX: N20.0 Calculus of kidney (principal) | CPT/HCPCS: 99212 ==

== ENCOUNTER → 2021-12-13 08:04 | Outpatient (BNVA) | payer OTHER, SELFPAY | PROVIDERS: PCP Internal Medicine; Visit Provider Nurse Practitioner Family | DX: M47.27 Other spondylosis with radiculopathy, lumbosacral region (principal) | CPT/HCPCS: 99202 ==

== ENCOUNTER 2021-12-26 07:19 | Outpatient (REF) | payer OTHER, SELFPAY ==
--- NOTE | ~2021-12-26 | MR_ITS ---
MR LUMBAR SPINE WITHOUT CONTRAST CLINICAL INFORMATION: Spondylosis with radiculopathy. COMPARISON: None available. TECHNIQUE: MRI of the lumbar spine was obtained using routine sequences without contrast. FINDINGS: There are 5 nonrib-bearing lumbar-type vertebral bodies. Lumbar alignment is normal. The vertebral body heights are maintained. There is disc desiccation at L4-L5. Remaining discs remain well-hydrated. All disc volumes are maintained. There is no bone marrow edema. There are no acute fractures. Conus terminates at the L1 level. There are no significant extraspinal soft tissue findings. The L1-L2 and the L2-L3 disc contours remain normal. There is no central canal stenosis and there is no foraminal stenosis at these levels. L3-L4: There is a far left lateral disc protrusion resulting in mild left-sided foraminal encroachment. No central canal and no right foraminal stenosis. L4-L5: Diffuse annular disc bulge and severe bilateral facet arthropathy and ligamentum flavum thickening. Bilateral facet joint effusions. No central canal stenosis. Mild right-sided foraminal encroachment. Right lateral annular fissure. L5-S1: Small annular disc bulge exhibiting a dorsal annular fissure. Severe bilateral facet arthropathy. No central canal stenosis. Mild foraminal encroachment bilaterally. MR/MR lumbar spine wo con IMPRESSION: Small annular disc bulges exhibiting annular fissures at the L4-L5 and L5-S1 levels. There is severe bilateral facet arthropathy at L4-L5 and L5-S1. No severe central canal stenosis and no severe foraminal stenosis within the lumbar spine.
== END 2021-12-26 07:20 | disposition home or self-care (01) ==
LOC: HO.MRI 07:19
PROVIDERS: Visit Provider Nurse Practitioner Family
DX: M47.27 Other spondylosis with radiculopathy, lumbosacral region (principal)
CPT/HCPCS: 72148

== ENCOUNTER → 2022-01-02 09:11 | Outpatient (BNVA) | payer OTHER, SELFPAY | PROVIDERS: PCP Internal Medicine; Visit Provider Nurse Practitioner Family | DX: Z13.89 Encounter for screening for other disorder (principal) ==

== ENCOUNTER → 2022-01-04 07:58 | Outpatient (BNVA) | payer OTHER, SELFPAY | PROVIDERS: PCP Internal Medicine; Visit Provider Obstetrics & Gynecology | DX: N91.2 Amenorrhea, unspecified (principal) | CPT/HCPCS: 99212 ==

== ENCOUNTER 2022-01-05 06:55 | Outpatient (REF) | payer OTHER, SELFPAY ==
[2022-01-05 08:52] LABS: HCG Quantitative < 2 mIU/mL; TSH reflex Free T4 1.37 uIU/mL (0.32-4.0)
[2022-01-06 04:46] LABS: Follicle Stimulating Hormone 10.2 mIU/mL; Lutenizing Hormone 3.9 mIU/mL; Prolactin 13.1 ng/mL
== END 2022-01-05 06:56 | disposition home or self-care (01) ==
LOC: HO.LAB 06:55
PROVIDERS: PCP Internal Medicine; Visit Provider Obstetrics & Gynecology
DX: N91.2 Amenorrhea, unspecified (principal)
CPT/HCPCS: 36415; 83001; 83002; 84146; 84443; 84702

== ENCOUNTER → 2022-01-29 15:31 | Outpatient (BNVA) | payer OTHER, SELFPAY | PROVIDERS: Visit Provider Obstetrics & Gynecology | DX: Z13.9 Encounter for screening, unspecified (principal) ==

== ENCOUNTER 2022-03-20 06:21 | Outpatient (REF) | payer OTHER, SELFPAY ==
--- NOTE | ~2022-03-20 | FL_ITS ---
EXAMINATION: XR FLUOROSCOPY WITH IMAGES CLINICAL INFORMATION: Spondylosis with radiculopathy lumbosacral region. COMPARISON: None. TECHNIQUE: Fluoroscopy performed by TELMA John. Fluoroscopy time: 0.2 minutes DAP: 4.5 Gycm2 Images: 2 FINDINGS: Images demonstrate needle placement and contrast injection over the posterior spinal canal at the L5-S1 level. FL/FL guidance in treatment room IMPRESSION: Fluoroscopy guidance for pain management procedure.
== END 2022-03-20 06:22 | disposition home or self-care (01) ==
LOC: HO.RADIR 06:21
PROVIDERS: Visit Provider Anesthesiology
DX: M47.27 Other spondylosis with radiculopathy, lumbosacral region (principal); M79.7 Fibromyalgia; F41.9 Anxiety disorder, unspecified; F32.9 Major depressive disorder, single episode, unspecified
CPT/HCPCS: 62323; J3300

== ENCOUNTER 2022-04-30 08:16 | Outpatient (REF) | payer OTHER, SELFPAY ==
--- NOTE | ~2022-04-30 | MM_ITS ---
EXAMINATION: MM SCREENING DIGITAL BREAST TOMOSYNTHESIS, BILATERAL CLINICAL INFORMATION: Screening. Asymptomatic. Prior dld-yl-gfyrw mammography at unknown facility. No known family history breast cancer. The lifetime risk of breast cancer based on the Tyrer-Cuzick Model is 8%. COMPARISON: None. TECHNIQUE: Digital breast tomosynthesis is performed in both the craniocaudal and mediolateral oblique views along with computer-aided detection (CAD). Synthesized 2D images are generated from the tomosynthesis. FINDINGS: There are scattered areas of fibroglandular density (ACR BI-RADS breast composition Category b). There are no significant masses, abnormal calcifications, or other abnormalities. There are benign coarse rim calcifications posterior medial right breast and anterior medial left breast. The bilateral axilla and skin contours are unremarkable. MM/MM tomosynthesis screening BI IMPRESSION: No mammographic evidence of malignancy. ASSESSMENT: BI-RADS 1: Negative RECOMMENDATION: Routine annual mammography screening. This patient's information was entered into a reminder system with a target due date for their next mammogram.
== END 2022-04-30 08:17 | disposition home or self-care (01) ==
LOC: HO.MAMMO 08:16
PROVIDERS: PCP Internal Medicine; Visit Provider Obstetrics & Gynecology
DX: Z12.31 Encounter for screening mammogram for malignant neoplasm of breast (principal)
CPT/HCPCS: 77063; 77067

== ENCOUNTER 2022-05-02 10:50 | Outpatient (REF) | payer OTHER, SELFPAY ==
--- NOTE | ~2022-05-02 | US_ITS ---
EXAMINATION: US RETROPERITONEAL LIMITED (RENAL ONLY) CLINICAL INFORMATION: Calculus of kidney. COMPARISON: US retroperitoneal limited (renal only) 11/15/2021. XR abdomen KUB 10/11/2021. CT abdomen and pelvis 10/04/2021. TECHNIQUE: Real-time imaging of the kidneys. FINDINGS: RIGHT KIDNEY: 10.0 x 4.9 x 5.8 cm (SAG x AP x TRV). The kidney is normal in size, contour, and echogenicity. There is a nonobstructive echogenic stone upper pole measuring 0.5 x 0.3 x 0.3 cm. LEFT KIDNEY: 10.4 x 4.6 x 5.5 cm (SAG x AP x TRV). The kidney is normal in size, contour, and echogenicity. Renal cortical thickness is normal. No calculi or focal parenchymal lesions. No hydronephrosis. US/US renal BI IMPRESSION: There is a nonobstructive echogenic stone upper pole right kidney measuring 0.5 x 0.3 x 0.3 cm. No caliectasis seen. The left kidney is unremarkable.
== END 2022-05-02 10:51 | disposition home or self-care (01) ==
LOC: HO.HMGCX 10:50
PROVIDERS: PCP Internal Medicine
DX: N20.0 Calculus of kidney (principal)
CPT/HCPCS: 76775

== ENCOUNTER → 2022-06-21 07:25 | Outpatient (BNVA) | payer OTHER, SELFPAY | PROVIDERS: PCP Internal Medicine; Referring Provider Internal Medicine; Visit Provider Physician Assistant | DX: Z12.11 Encounter for screening for malignant neoplasm of colon (principal) | CPT/HCPCS: 99202 ==

== ENCOUNTER 2022-07-07 10:29 | Outpatient (REF) | payer OTHER, SELFPAY ==
[2022-07-07 10:42] LABS: MANUAL DIFF FLAG NO
[2022-07-07 11:24] LABS: Basophils Percent Auto 0.4 % (0-2); Eosinophils Absolute Auto 0.1 X10*3/uL (0.0-0.4); Eosinophils Percent Auto 1.7 % (0-4); Hematocrit 43.3 % (37.0-47.0); Hemoglobin 14.5 g/dl (12.0-16.0); Imm Gran Abs Auto 0.02 X10*3/uL (0.00-0.03); Imm Gran Pct Auto 0.3 % (0.0-0.4); Lymphocytes Absolute Auto 2.2 X10*3/uL (1.2-4.9); Lymphocytes Percent Auto 31.6 % (20-40); Mean Corpuscular HGB Conc 33.5 g/dl (31.0-35.0); Mean Corpuscular Hemoglobin 30.5 pg (27.0-33.0); Mean Corpuscular Volume 91.2 fL (80.0-98.0); Mean Platelet Volume 9.9 fL (9.4-12.3); Monocytes Absolute Auto 0.4 X10*3/uL (0.1-1.2); Monocytes Percent Auto 5.4 % (2-11); Neutrophils Absolute Auto 4.2 x10*3/uL (2.0-8.3); Neutrophils Percent Auto 60.6 % (45-73); Platelet Count 379 X10*3/uL (160-400); Red Blood Count 4.75 X10*6/uL (4.20-5.50); Red Cell Distribution Width 12.5 % (11.0-16.0)
[2022-07-07 11:37] LABS: Alanine Aminotransferase 18 U/L (0-31); Alkaline Phosphatase 65 U/L (39-117); Anion Gap 14 (12-20); Aspartate Amino Transferase 15 U/L (5-31); Bilirubin Total 0.7 mg/dL (0.0-1.0); Blood Urea Nitrogen 13 mg/dL (9-16); Carbon Dioxide 27 mmol/L (22-29); Chloride 103 mmol/L (96-108); Cholesterol 186 mg/dL; Estimated Glomerular Filt Rate 54; Glucose Fasting 89 mg/dL (60-99); HDL Cholesterol 46 mg/dL; LDL Cholesterol Calculated 118 mg/dl; Sodium 140 mmol/L (135-145); Triglycerides 112 mg/dL
[2022-07-07 12:00] LABS: Thyroid Stimulating Hormone 0.84 uIU/mL (0.32-4.0); Vitamin D 25-OH Total 29.8 ng/mL (>30)
== END 2022-07-07 10:30 | disposition home or self-care (01) ==
LOC: HO.LAB 10:29
PROVIDERS: PCP Internal Medicine; Visit Provider Internal Medicine
DX: Z00.00 Encounter for general adult medical examination without abnormal findings (principal); E66.9 Obesity, unspecified; E55.9 Vitamin D deficiency, unspecified; Z68.36 Body mass index [BMI] 36.0-36.9, adult
CPT/HCPCS: 36415; 80053; 80061; 82306; 84443; 85025

== ENCOUNTER 2022-10-04 06:44 | Outpatient (REF) | payer OTHER, SELFPAY ==
[2022-10-04 07:43] LABS: Appearance Urine Hazy; Color Urine Yellow; Glucose Urine UA Negative (Negative); Leukocyte Esterase Urine Small (1+) (Negative); Nitrite Urine Negative (Negative); UMIC TRIGGER UACC YES; Urine Blood Trace (Negative); Urine Ketones Negative (Negative); Urine Protein Negative (Neg-Trace)
[2022-10-04 07:57] LABS: Bacteria Urine 2+ (None Seen); Hyaline Casts Urine 0-2 /LPF (0-2); Squamous Epithelial Cell Urine >20 /HPF (0-2); UACC Culture Trigger YES
== END 2022-10-04 06:45 | disposition home or self-care (01) ==
LOC: HO.LAB 06:44
PROVIDERS: PCP Internal Medicine; Visit Provider Internal Medicine
DX: R30.0 Dysuria (principal)
CPT/HCPCS: 81001; 87086

== ENCOUNTER → 2023-01-11 09:47 | Outpatient (BNVA) | payer OTHER, SELFPAY | PROVIDERS: PCP Internal Medicine; Visit Provider Nurse Practitioner Family | DX: G43.109 Migraine with aura, not intractable, without status migrainosus (principal); G47.9 Sleep disorder, unspecified; N20.0 Calculus of kidney; F31.9 Bipolar disorder, unspecified | CPT/HCPCS: 99202 ==

== ENCOUNTER → 2023-01-24 14:19 | Outpatient (BNVA) | payer OTHER, SELFPAY | PROVIDERS: PCP Internal Medicine; Visit Provider Nurse Practitioner Family | DX: G43.109 Migraine with aura, not intractable, without status migrainosus (principal) | CPT/HCPCS: 99211 ==

== ENCOUNTER → 2023-03-22 15:29 | Outpatient (BNVA) | payer OTHER, SELFPAY | PROVIDERS: PCP Internal Medicine; Visit Provider Physician Assistant Surgical ==

== ENCOUNTER 2023-04-11 11:28 | Day surgery (SDC) | payer OTHER, SELFPAY ==
[2023-04-09 10:27] VITALS: BMI 36.7
--- NOTE | 2023-04-10 13:22 | HO.ANESPROP2 ---
Documented by User: Noemi Romo NP 04/10/23 13:23 HPI - Anesthesia Eval Consult details Narrative: 47yo F for Colonoscopy PMFSH Active Problems Active Problems: All Active Problems (Updated 01/11/23 @ 14:27 by NINA Chapman) URI (upper respiratory infection) (Acute) Sinusitis chronic, ethmoidal (Acute) Well woman exam (Acute) Left arm numbness (Acute) Left leg numbness (Acute) Polyarthralgia (Acute) Fibromyalgia (Acute) Arthritis (Acute) Migraine (Acute) Hematuria (Acute) Bilateral flank pain (Acute) Left flank pain (Acute) Nephrolithiasis (Acute) Elevated LFTs (Acute) Lower back pain (Acute) Elevated blood pressure reading (Acute) Hypertension (Acute) Obesity (BMI 30.0-34.9) (Acute) Anxiety (Acute) Spondylosis of lumbosacral spine with radiculopathy (Acute) Amenorrhea (Acute) Encounter for screening colonoscopy (Acute) Physical exam (Acute) Class 2 obesity with body mass index (BMI) of 37.0 to 37.9 in adult (Acute) Migraines (Acute) New daily persistent headache (Acute) Chronic migraine with aura (Acute) Bipolar disorder (Acute) Sleep difficulties (Acute) Class 2 obesity with body mass index (BMI) of 36.0 to 36.9 in adult (Acute) Moderate recurrent major depression (Acute) Hypovitaminosis D (Acute) Fatigue (Acute) Chronic diarrhea (Acute) Asthma (Acute) Depression (Acute) Past Medical History Medical History Asthma Chronic diarrhea Class 2 obesity with body mass index (BMI) of 36.0 to 36.9 in adult Depression Fatigue Hypertension Hypovitaminosis D Moderate recurrent major depression Family History Family History Father Liver disease Mother Diabetes CKD (chronic kidney disease) Depression Hypertension Psoriasis Family/Other FH: mental illness Brother Heroin abuse Sister Anemia Hypertension Family history of problems with anesthesia: No Surgical History Surgical History H/O lithotripsy History of tubal ligation History of Problems with Anesthesia: No Social History Social History Housing: Apartment Are you a primary farm or ranch animal caretaker to a significant other at home: No Do you presently have visiting nurse or other home services: No Alcohol intake: current Alcohol intake frequency: holidays/special occasions only Alcohol type: wine Patient Tobacco Use Status: Never used Tobacco e-Cigarette/Vaping Use: Never Used Second Hand Smoke Exposure: No Substance Use Type: Marijuana Substance Use Frequency: Daily Have you been hit, kicked, punched, or otherwise hurt by someone within the past year? If so, by whom?: No Are you DNR?: No Advance Directives: No Advance Directives Information Provided: Yes Recently lost weight without trying: No Eating poorly because of decreased appetite: No Nutrition Risks: No Nutritional Risk Patient : No service: No Current occupational status: employed Current occupational exposures/hazards: No Cognitive needs: No Hearing needs: No Vision needs: No Meds Allergies Allergy/AdvReac Type Severity Reaction Status Date / Time Penicillins [PENICILLINS] Allergy Severe rash Verified 03/22/23 15:36 shellfish derived Allergy Severe Swelling Verified 03/22/23 15:36 Home Medications Medication Instructions Recorded Confirmed Last Taken Type pyridoxine (vitamin B6) 50 mg 50 mg PO DAILY 05/16/22 04/09/23 Unknown History tablet Exam Exam Date and Time: April 10, 2023 1322 Height,Weight and Vital Signs: Height 5 ft 3 in Weight 93.894 kg Assessment and Plan Assessment Anesthesia Assessment: Chart Reviewed Final Anesthetic Review Family History of Problems with Anesthesia: No History of Problems with Anesthesia: No Documented by User: Devorah Galvan MD 04/11/23 12:36 [facility] Past Medical History Medical History Asthma Chronic diarrhea Class 2 obesity with body mass index (BMI) of 36.0 to 36.9 in adult Depression Fatigue Hypertension Hypovitaminosis D Moderate recurrent major depression Family History Family History Father Liver disease Mother Diabetes CKD (chronic kidney disease) Depression Hypertension Psoriasis Family/Other FH: mental illness Brother Heroin abuse Sister Anemia Hypertension Surgical History Surgical History H/O lithotripsy History of tubal ligation Social History Social History Housing: Apartment Are you a primary farm or ranch animal caretaker to a significant other at home: No Do you presently have visiting nurse or other home services: No Alcohol intake: current Alcohol intake frequency: holidays/special occasions only Alcohol type: wine Patient Tobacco Use Status: Never used Tobacco e-Cigarette/Vaping Use: Never Used Second Hand Smoke Exposure: No Substance Use Type: Marijuana Substance Use Frequency: Daily Have you been hit, kicked, punched, or otherwise hurt by someone within the past year? If so, by whom?: No Are you DNR?: No Advance Directives: No Advance Directives Information Provided: Yes Recently lost weight without trying: No Eating poorly because of decreased appetite: No Nutrition Risks: No Nutritional Risk Patient : No service: No Current occupational status: employed Current occupational exposures/hazards: No Cognitive needs: No Hearing needs: No Vision needs: No Meds Allergies Allergy/AdvReac Type Severity Reaction Status Date / Time Penicillins [PENICILLINS] Allergy Severe rash Verified 03/22/23 15:36 shellfish derived Allergy Severe Swelling Verified 03/22/23 15:36 Home Medications Medication Instructions Recorded Confirmed Last Taken Type pyridoxine (vitamin B6) 50 mg 50 mg PO DAILY 05/16/22 04/09/23 Unknown History tablet Exam Airway Mallampati Class: II TM Dist: >3cm Neck ROM: Full Loose/Missing/Broken Teeth: No Heart: RRR Lungs: CTA Assessment and Plan Assessment Anesthesia Assessment: Anesthesia Plan Discussed Final Anesthetic Review NPO: Yes ASA Class: II Final Preanesthetic Review: Meds/Allgs Chart Reviewed, Consent Obtained/Reviewed and Anes Risks/Benef Reviewed Patient Risk: Low Procedure Risk: Low Anesthetic Plan Anesthetic Plan: MAC: Disposition: Standard PACU
[2023-04-11 11:59] VITALS: BP 139/75; PULSE 93; RESP 18; TEMP 36.8; O2SAT 98
[2023-04-11] MEDS: Lactated Ringers 1,000 ML 100 ML IVCONT (12:07)
--- NOTE | 2023-04-11 12:24 | MHC.SHP ---
Pre-Procedural Eval Section A Date of Service: 04/11/23 Section B Chief Complaint: Screening Details of Present Illness: Medical History Asthma Chronic diarrhea Class 2 obesity with body mass index (BMI) of 36.0 to 36.9 in adult Depression Fatigue Hypertension Hypovitaminosis D Moderate recurrent major depression Surgical History H/O lithotripsy History of tubal ligation Present Medications: see Short Stay Collaborative assessment Allergies: Allergies Allergy/AdvReac Type Severity Reaction Status Date / Time Penicillins [PENICILLINS] Allergy Severe rash Verified 03/22/23 15:36 shellfish derived Allergy Severe Swelling Verified 03/22/23 15:36 Review of Systems Review of Systems Comment: Ten point ROS negative except as above Exam Exam Comment: Gen appear: No acute distress HEENT: no icterus Chest: No overt resp distress Abd: soft, nontender, nondistended Psych: Stable affect, answering questions appropriately Neuro: A/Ox3 noted to move all extremities spontaneously Ext: no peripheral edema Plan Diagnosis/Plan: Unchanged I have reviewed the history and physical and performed a pertinent physical examination on my patient. No changes have occurred unless specified. Time Spent With Patient Time: Total time managing care of this patient today ____ minutes.
--- NOTE | 2023-04-11 12:33 | P.OP_ITS ---
Operative Note Operative Note Date of Service: 04/11/23 Narrative: Procedure: Colonoscopy Indication: Screening Endoscopist: Jaclyn Hart MD Anesthesia Provider: Ana Paula Washington CRNA Anesthesia type: MAC Instrument: Olympus [id number]-[id number] Consent: Indication, risks vs benefits, and alternatives were discussed with the patient who gave written informed consent to proceed. EKG, pulse, pulse oximetry and blood pressure were monitored throughout the procedure. Please see anesthesia flowsheet. Procedure: The patient was brought to the procedure room and placed in the left lateral decubitus position. IV medications were administered by the anesthesia provider in attendance. A digital rectal exam was performed which was normal. A distal attachment cap was affixed to the tip of the scope and the colonoscope was then inserted through the anus and advanced through the colon to the cecum at 75 cm,and terminal ileum. Mucosa was carefully examined under high definition white light as the instrument was slowly withdrawn in a retrograde panoramic fashion. Retroflexion was performed in rectum. The procedure was not difficult. There were no immediate obvious complications. The quality of the prep was BBPS: 3+2+3 = adequate Withdrawal time 13 minutes. Limitations: No limitations. Findings: Mucosa: Normal to cecum and terminal ileum. Protruding lesions: * 2 sessile polyp of size 5-7 mm in descending colon. Cold snare polypectomy was performed. The polyps were completely removed and retrieved. * 3 sessile polyp of size 4-7 mm in sigmoid colon. Cold snare polypectomy was performed. The polyps were completely removed and retrieved. * Medium internal hemorrhoids without stigmata of recent bleeding. Impression: 1. Normal colon and terminal ileum mucosa 2. Total of 5 polyps removed from descending, and sigmoid colon. 3. Internal hemorrhoids Recommendations: - Follow path results. - Repeat colonoscopy in 3 years if more than polyps are adenomas otherwise 5 years.
[2023-04-11 13:06] VITALS: BP 103/72; PULSE 94; RESP 16; TEMP 36.6; O2SAT 98
[2023-04-11 13:21] VITALS: BP 140/87; PULSE 85; RESP 16; TEMP 36.6; O2SAT 98
== END 2023-04-11 14:18 | disposition home or self-care (01) ==
PROVIDERS: PCP Internal Medicine; Visit Provider Internal Medicine
PROC: 0DJD8ZZ Inspection of Lower Intestinal Tract, Via Natural or Artificial Opening Endoscopic (ICD-10-PCS; CPT 45378; principal; 2023-04-11 13:20)
DX: Z12.11 Encounter for screening for malignant neoplasm of colon (principal); K63.5 Polyp of colon; K64.8 Other hemorrhoids; K52.9 Noninfective gastroenteritis and colitis, unspecified; I10 Essential (primary) hypertension; J45.909 Unspecified asthma, uncomplicated; E66.9 Obesity, unspecified; Z68.36 Body mass index [BMI] 36.0-36.9, adult; F12.90 Cannabis use, unspecified, uncomplicated; Z98.51 Tubal ligation status; Z79.899 Other long term (current) drug therapy
CPT/HCPCS: 45385; 88305

== ENCOUNTER → 2023-04-11 11:28 | Outpatient (BNV) | payer OTHER, SELFPAY | PROVIDERS: PCP Internal Medicine; Visit Provider Internal Medicine | DX: Z12.11 Encounter for screening for malignant neoplasm of colon (principal); D12.4 Benign neoplasm of descending colon; D12.5 Benign neoplasm of sigmoid colon; K64.8 Other hemorrhoids | CPT/HCPCS: 45385 ==

== ENCOUNTER 2023-04-18 14:58 | Outpatient (AMB) | payer OTHER, SELFPAY ==
--- NOTE | 2023-04-18 15:08 | A.OFFVIS_ITS ---
Intake VS Expanded 04/18/23 15:14 Height 5 ft 3 in Weight 214 lb 6.4 oz BMI 38.0 BP 136/83 Blood Pressure Location Rt brachial Blood Pressure Position Sitting Pulse 92 Pulse Source Pulse Oximeter Temp 98.2 F Temperature Source Temporal Artery Scan Pulse Oximetry 98 Oxygen Delivery Method Room Air Body Fat 83.8 Body Fat Percentage 39.5 Free Fat Mass 131.0 Muscle Mass 121.6 Visceral Mass 11.0 Water Mass 91.2 BMR 1,760 Intake Visit Reasons: (OV) MATHEMATICIAN RESEARCH SWL BMI 38.0 Ball Warper Tender Required: No Allergies Penicillins [PENICILLINS] Allergy (Severe, Verified 04/18/23 15:12) rash shellfish derived Allergy (Severe, Verified 04/18/23 15:12) Swelling Medication List - Last Reconciled 04/18/23 by MENA Hancock albuterol sulfate 90 mcg/actuation (Ventolin HFA) 2 puffs inhalation Q6H PRN ascorbic acid (vitamin C) 1 g PO DAILY 90 days bupropion HCl 150 mg PO BID 90 days cetirizine 10 mg PO DAILY 90 days cholecalciferol (vitamin D3) 25 mcg PO DAILY 90 days erenumab-aooe (Aimovig Autoinjector) 140 mg subcut ONCE 30 days hydrochlorothiazide 25 mg PO DAILY 90 days magnesium oxide 400 mg PO BEDTIME 30 days meloxicam 15 mg PO DAILY 90 days sumatriptan succinate 50 - 100 mg orally at onset of headache, may repeat in 2 hrs PRN; max 2 tabs per day or 4 tabs/week (may take with Ibuprofen) 30 days topiramate 25 mg PO BEDTIME 90 days HPI HPI Comments History of Present Illness Details Pt [place] [facility] [place]. She heard about our program from friends. Her goal is to lose weight and achieve a healthy lifestyle as well as to improve, if not resolve, obesity related medical conditions, including htn. She reports first being concerned about her weight 2-3 years, highest weight to date was 280. Current weight is 212 with a BMI of 37.5. She has tried multiple methods of weight loss including fad diets, exercise without permanent results. She lives with her . 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 She wakes at:?4 am, and goes to bed at?8 pm. Dinner is at 5 pm. Breakfast: skip or yogurt AM snack: skip Lunch: skip or leftovers from dinner or salad w chicken PM snack: skip Dinner: pasta, rice and beans and meat, beef stew, plantains After dinner: chocolate Other snacks: cookies, candy, ice cream Liquids: 64 oz water daily, no soda, no juice Alcohol/marijuana/tobacco intake: no etoh, smoke marijuana daily, no tobacco Exercise: no formal exercise, no gym membership, GERD score: 0 JOHN score: 4 ESS score: 2 QOL score: 97 PFSH Medical History Asthma Chronic diarrhea Class 2 obesity with body mass index (BMI) of 36.0 to 36.9 in adult Depression Fatigue Hypertension Hypovitaminosis D Moderate recurrent major depression Surgical History H/O lithotripsy History of tubal ligation Hx of colonoscopy Family History Father Liver disease Mother Diabetes CKD (chronic kidney disease) Depression Hypertension Psoriasis Family/Other FH: mental illness Brother Heroin abuse Sister Anemia Hypertension Social History Housing: Apartment Are you a primary family day care worker to a significant other at home: No Do you presently have visiting nurse or other home services: No Alcohol intake: current Alcohol intake frequency: holidays/special occasions only Alcohol type: wine Patient Tobacco Use Status: Never used Tobacco e-Cigarette/Vaping Use: Never Used Second Hand Smoke Exposure: No Substance Use Type: Marijuana service: No Current occupational status: employed Current occupational exposures/hazards: No Cognitive needs: No Hearing needs: No Vision needs: No Female Reproductive History Menstrual Age of Menarche: 10 Review of Systems Const All systems reviewed & are unremarkable except as noted in HPI and below Physical Exam Vital Signs: Last Vital Signs Temp 98.2 F 04/18/23 15:14 Pulse 92 04/18/23 15:14 BP 136/83 04/18/23 15:14 Pulse Ox 98 04/18/23 15:14 Oxygen Delivery Method Room Air 04/18/23 15:14 BMI result Body Mass Index 38.0 Const General: cooperative, healthy appearing and no acute distress Orientation/consciousness: patient oriented x3 HEENT Head: Yes normal to inspection Ears: hearing grossly normal bilaterally General nose exam: Normal external nose present Face and sinus: Yes normal facial exam Eyes General: appearance normal, both eyes and all related structures Resp Effort & Inspection: normal respiratory effort Auscultation: clear to auscultation bilaterally Cardio Rate: regular rate Rhythm: regular rhythm Heart sounds: S1 normal heart sound present and S2 normal heart sound present GI Inspection: Yes normal to inspection, No distended and Yes obesity Palpation (GI): Soft to palpation, nontender and no guarding Auscultation: normal bowel sounds Skin General skin exam: no rashes or lesions noted Neuro General: patient oriented x3 Extrem General: No edema Psych Appearance: grossly normal Mental Status: mental status grossly normal Speech and movement: Normal speech and movement present Affect: normal affect Attitude: cooperative Assessment & Plan Assessment & Plan (1) Obesity (BMI 30-39.9): Code(s): E66.9 - Obesity, unspecified Plan: This is a?47 yo female who will start our SWL program to prepare for bariatric surgery.? Blood work, h pylori , CXR, ECG, Abd US and UGI have been ordered. She is being scheduled for RD and BH initial consultations. She will start SWL classes and watch the first three videos before her next appointment. ? Adequate sleep of 7-8 hours per night discussed, awakening at 4 am and going to bed at 8 pm ? Purchase body composition analyzer scale (Natividad sotelo or Nevao recommended) and check weight weekly. The best time to do this is first thing in the morning after going to the bathroom. 1. Nutritional counseling: Be sure to careful read the number of scoops per shake Start with 3 Orgain shakes ([employer], [employer], [employer]), (1 scoop in 8 oz low fat unsweetened almond milk or water each) First shake at 5am-7am, Second shake at 9am-11pm 1 protein bar (Zone Perfect bars at [employer], [employer], or [employer]) at 12pm-2pm. Dinner at 5pm (8 forks of protein and 8 forks of salad/vegetables). Meal to include lean meat (beef, fish, pork, turkey, chicken), cooked vegetables or a salad with olive oil and/or fruits (berries, pears, apples, kiwi). Avoid salt, breads, potatoes, rice, pasta, desserts. Another shake with 1 scoop in 8 oz unsweetened almond milk at 6pm-8pm. Try to drink 64 oz of water daily and avoid soda and juices. ?2. Each shake would be drunk slowly, like coffee in a period of 2 hours. ?3. Cut each bar in 4 pieces and eat each piece in 30 min ?to make each bar last 2 hours. ?4. I emphasized the importance of measuring accurately the food portion and measure it carefully when serving the food on the plate ?5. The meal portions include 8 full-size forks of meat and 8 full-size forks of salad. You always eat the meat portion but you can replace up to half of the forks of salad/vegetables with rice, potatoes or pasta, or a fruit ?if you like. The less you do it the better weight loss will be. ?6. One full-size fork is what can be scooped on the fork without falling aside and not what can be bit with the fork. Use regular forks like those you find in a typical restaurant. ?7.? Please send me weight measurements as soon as possible and then once a week. Always include your diet and exercise plan. Alternatively come weekly at the office for weight checks and send me the measurements. ?8. Exercise counseling: Begin by watching a stretching for beginners video. Start slowly and begin to stretch your muscles. You should do this before and after each exercise session to prevent injury. Please join [facility] gym near your home. Ask the dietary manager or one of the trainers how to use the machines if you are unfamiliar with them. Start elliptical with a resistance of 2. Increase resistance by 1 every 3 min to your most comfortable resistance with a max resistance of 8. Reduce the resistance by 1 every 3 minutes back down to 2 and repeat cycles for 300 calories. Alternatively, start treadmill with a speed of 3.0 and incline of 0, increasing incline by 1 every 3 minutes to the highest comfortable level (max 6 for now) then decrease in the same fashion. Repeat process to a goal of 300 calories. Goal of 2000 calories burned or more weekly. You may also consider use of the stationary bike. The easiest would be to chose the fat-burn or interval training program on the machine and do this until you reach the 300 calorie goal. Alternatively, you can manually adjust the resistance in a similar fashion as mentioned above, (resistance of 2-8 with a goal speed of 12 mph). Tracking calories is essential. 9. Alternatively start walking outside daily, tracking calories with a goal of 300 calories per day, daily. You can download the kike [employer] [employer] which can track your time, distance and calories while walking outside. You press start in the kike when you start and then stop when you are finished. 10.? It is important to avoid and for at least 18 months postoperatively and it has been discussed at the information session 11. Please get labs, EKG and chest X-Ray within 1 week. 12. Discussed and answered all questions regarding?obtained consent to participate in the [place] [facility]?Registry. 13. Please follow the diet plan exactly, without any change. If you do not like something about the plan or you feel hungry, you need to communicate with me so I can help you revise the plan. You should not change the plan yourself. Text me at [phone] 14. Goal is to lose at least 12 pounds in the first month 15. Goal is to lose 10% of your weight before surgery, which is about 21 lbs. Ultimate weight goal: 193.4 lbs before surgery Patient is morbidly obese and is not considered stable at this time.?I spent a total of 70 minutes reviewing/updating records, examining the patient and counseling the patient on weight management as detailed above. Orders: Orders Vitamin B12 and Folate Today E66.9 - Obesity, unspecified, I10 - Essential (primary) hypertension Comprehensive Met. Panel Today E66.9 - Obesity, unspecified, I10 - Essential (primary) hypertension C Reactive Protein Today E66.9 - Obesity, unspecified, I10 - Essential (primary) hypertension Ferritin Today E66.9 - Obesity, unspecified, I10 - Essential (primary) hypertension Hemoglobin A1c Today E66.9 - Obesity, unspecified, I10 - Essential (primary) hypertension Insulin Today E66.9 - Obesity, unspecified, I10 - Essential (primary) hypertension IRON PROFILE Today E66.9 - Obesity, unspecified, I10 - Essential (primary) hypertension Lipid Panel Today E66.9 - Obesity, unspecified, I10 - Essential (primary) hypertension PTHI Today E66.9 - Obesity, unspecified, I10 - Essential (primary) hypertension TSH reflex Free T4 Today E66.9 - Obesity, unspecified, I10 - Essential (primary) hypertension Vitamin A Today E66.9 - Obesity, unspecified, I10 - Essential (primary) hypertension Vitamin B1 Today E66.9 - Obesity, unspecified, I10 - Essential (primary) hypertension Vitamin D 25-OH Total Today E66.9 - Obesity, unspecified, I10 - Essential (primary) hypertension Zinc Today E66.9 - Obesity, unspecified, I10 - Essential (primary) hypertension ECG 12 lead EKG Today E66.9 - Obesity, unspecified, I10 - Essential (primary) hypertension FL upper GI w air Today E66.9 - Obesity, unspecified, I10 - Essential (primary) hypertension Complete Blood Count Auto Diff Today E66.9 - Obesity, unspecified, I10 - Essential (primary) hypertension H Pylori Breath Test Today E66.9 - Obesity, unspecified, I10 - Essential (primary) hypertension US abdomen comp w elastography Today E66.9 - Obesity, unspecified, I10 - Essential (primary) hypertension XR chest 2V Today E66.9 - Obesity, unspecified, I10 - Essential (primary) hypertension Referrals Behavioral Health Referral E66.9 - Obesity, unspecified, I10 - Essential (primary) hypertension Nutrition/Dietitian Referral E66.9 - Obesity, unspecified, I10 - Essential (primary) hypertension Coding Level of Care Code New Pt Level 5 (76595) Diagnoses Obesity (BMI 30-39.9) E66.9 Time Spent (min) 70
[2023-04-18 15:14] VITALS: BP 136/83; PULSE 92; TEMP 36.8; O2SAT 98; BMI 38.0
== END 2023-04-18 16:32 | disposition home or self-care (01) ==
PROVIDERS: PCP Internal Medicine; Visit Provider Physician Assistant Surgical
DX: E66.9 Obesity, unspecified (principal); Z68.38 Body mass index [BMI] 38.0-38.9, adult
CPT/HCPCS: 99205

== ENCOUNTER → 2023-04-18 14:58 | Outpatient (BNVA) | payer OTHER, SELFPAY | PROVIDERS: PCP Internal Medicine; Visit Provider Physician Assistant Surgical | DX: E66.9 Obesity, unspecified (principal); Z68.38 Body mass index [BMI] 38.0-38.9, adult | CPT/HCPCS: 99202 ==

== ENCOUNTER 2023-06-05 09:44 | Outpatient (AMB) | payer OTHER, SELFPAY ==
[2023-06-05 09:46] VITALS: BP 144/98; PULSE 89; O2SAT 100; BMI 37.2
--- NOTE | 2023-06-05 09:46 | A.OFFPC_ITS ---
Vital Signs 06/05/23 09:46 Height 5 ft 3 in Weight 210 lb BMI 37.2 BP 144/98 H Blood Pressure Location Lt brachial Position Sitting Pulse 89 Pulse Source Pulse Oximeter Temp Source Skin Pulse Oximetry (%) 100 Oxygen Delivery Method Room Air Intake Visit Reasons: Asthma Follow Up Intake Note: Patient is here to follow up on asthma. pt also states high BP Medical Customer Service Representative Required: No Allergies Penicillins [PENICILLINS] Allergy (Severe, Verified 06/05/23 10:02) rash shellfish derived Allergy (Severe, Verified 06/05/23 10:02) Swelling Medication List - Last Reconciled 06/05/23 by Kamini Vasquez, NINA albuterol sulfate 90 mcg/actuation (Ventolin HFA) 2 puffs inhalation Q6H PRN ascorbic acid (vitamin C) 1 g PO DAILY 90 days bupropion HCl 150 mg PO BID 90 days cetirizine 10 mg PO DAILY 90 days cholecalciferol (vitamin D3) 25 mcg PO DAILY 90 days erenumab-aooe (Aimovig Autoinjector) 140 mg subcut ONCE 30 days hydrochlorothiazide 25 mg PO DAILY 90 days magnesium oxide 400 mg PO BEDTIME 30 days meloxicam 15 mg PO DAILY 90 days sumatriptan succinate 50 - 100 mg orally at onset of headache, may repeat in 2 hrs PRN; max 2 tabs per day or 4 tabs/week (may take with Ibuprofen) 30 days topiramate 25 mg PO BEDTIME 90 days Tobacco use date assessed: 06/05/23 Dental Screening Dental Screen Date: 06/05/23 Did you have a dental visit in the last 12 months?: No Did you have a dental problem in the last 6 months where you did not have access to dental care?: No HPI Asthma Follow Up HPI Details Patient is a 47-year-old female presents today to follow-up on asthma. Patient of Dr. Keith. Medical history significant for depression, asthma obesity, migraines, hypertension, fibromyalgia among others. Patient reports that for the past couple days she has been having shortness of breath, wheezing, dry cough, and her chest feels tight at night and she has to use albuterol inhaler with some improvement. Patient also reports elevated blood pressures at home, her blood pressure one time was 164/116, reports systolic blood pressures usually in 140s. Patient is compliant with hydrochlorothiazide and she is fo llowing low-sodium diet. Denies chest pain. [facility] Medical History Class 2 obesity with body mass index (BMI) of 36.0 to 36.9 in adult Moderate recurrent major depression Hypertension Hypovitaminosis D Fatigue Chronic diarrhea Asthma Depression Surgical History Hx of colonoscopy H/O lithotripsy History of tubal ligation Family History Father Liver disease Mother Diabetes CKD (chronic kidney disease) Depression Hypertension Psoriasis Family/Other FH: mental illness Brother Heroin abuse Sister Anemia Hypertension Social History Housing: Apartment Are you a primary rn progressive care unit to a significant other at home: No Do you presently have visiting nurse or other home services: No Alcohol intake: current Alcohol intake frequency: holidays/special occasions only Alcohol type: wine Patient Tobacco Use Status: Never used Tobacco e-Cigarette/Vaping Use: Never Used Second Hand Smoke Exposure: No Substance Use Type: Marijuana service: No Current occupational status: employed Current occupational exposures/hazards: No Cognitive needs: No Hearing needs: No Vision needs: No Female Reproductive History Menstrual Age of Menarche: 10 Questionnaire Thrive Questionnaire Date Thrive assessed: 10/29/22 AUDIT C Alcohol Use Questionnaire (AUDIT-C) 1. How often do you have a drink containing alcohol?: Monthly or less 2. How many drinks containing alcohol do you have on a typical day when you are drinking?: 1 or 2 3. How often do you have six or more drinks on one occasion?: Never Total Score: 1 Score Reviewed/Action Taken: No BALTA-7 AMB Questionnaire BALTA-7 Date BALTA - 7 assessed: 10/29/22 Source: Developed by Drs. Darrel Minaya, Cynthia Veras, Rojas Syed and colleagues, with an educational jayleen from [employer]. Review of Systems Const Denies body aches, Denies chills, Denies fever(s) and Denies headache(s) ENT Denies dizziness, Denies otalgia, Denies headache(s), Denies nasal discharge, Denies sinus pain and Denies sore throat Card Denies chest pain, Denies edema, Denies lightheadedness and Reports dyspnea Resp Reports cough, Reports dyspnea and Reports wheezing GI Denies abdominal pain Denies dysuria Musc Denies myalgias Skin/Breast Denies rash Neuro Denies dizziness and Denies headache(s) Aller/Immun Reports wheezing Physical exam (Primary Care) Vital Signs: Last Vital Signs Pulse 89 06/05/23 09:46 BP 144/98 H 06/05/23 09:46 Pulse Ox 100 06/05/23 09:46 Oxygen Delivery Method Room Air 06/05/23 09:46 BMI result Body Mass Index 37.2 Tobacco/Smoking Status: Tobacco use Status Tobacco use date assessed 06/05/23 06/05/23 09:53 Patient Tobacco Use Status Never used Tobacco 06/05/23 09:53 e-Cigarette/Vaping Use Never Used 06/05/23 09:53 Thrive Assessment: Date of Thrive Assessment Date Thrive assessed 10/29/22 06/05/23 09:53 Const General: cooperative and no acute distress Orientation/consciousness: patient oriented x3 HENMT Head: Yes normocephalic and Yes atraumatic Face and sinus: Yes sinuses nontender Mouth: oropharynx normal and moist mucous membranes Throat: Yes posterior oropharynx normal Eyes General: appearance normal, both eyes and all related structures Neck Neck: Yes normal visual inspection, Yes full ROM and Yes no lymphadenopathy Resp Effort & Inspection: normal respiratory effort and able to speak in complete sentences Auscultation: clear to auscultation bilaterally (Bilateral upper lungs), no crackles, no rales, no rhonchi and wheezes (Fine bilateral lower lungs expiratory ) Cardio Rate: regular rate Rhythm: regular rhythm Heart sounds: S1 normal heart sound present and S2 normal heart sound present GI Auscultation: normal bowel sounds Skin General skin exam: no rashes or lesions noted Neuro General: patient oriented x3 Gait exam (Neuro): Normal gait present Extrem General: Yes full ROM and No edema Assessment and Plan Assessment & Plan (1) Hypertension: Code(s): I10 - Essential (primary) hypertension Plan: Goal BP equal or less than 140/90, blood pressure elevated in the office today, patient also reports elevated blood pressures at home Continue hydrochlorothiazide 25 mg daily Start lisinopril 5 mg daily-educated about possible adverse reactions and when to notify provider Continue low-sodium diet and weight loss Monitor blood pressures at home Follow-up with nurse in 2 weeks for BP recheck (2) Asthma: Code(s): J45.909 - Unspecified asthma, uncomplicated Qualifiers: Asthma severity: mild Asthma persistence: intermittent Asthma complication type: uncomplicated Qualified Code(s): J45.20 - Mild intermittent asthma, uncomplicated Plan: Suspect asthma exacerbation Start prednisone for 5 days Will provide patient with albuterol nebulizer treatments p.r.n., can alternate with albuterol inhaler Signs and symptoms reviewed when to notify provider go to the emergency department Patient agreed with the plan Plan Keep appointment with PCP as scheduled or follow-up sooner as needed Medications: New lisinopril 5 mg PO DAILY 30 tabs 2RF I10 - Essential (primary) hypertension albuterol sulfate 2.5 mg (3 mL) inhalation Q4-6H PRN 75 mL 0RF shortness of breath or wheezing J45.909 - Unspecified asthma, uncomplicated blood pressure monitor As directed 1 ea 0RF I10 - Essential (primary) hypertension blood pressure monitor As directed 1 ea 0RF I10 - Essential (primary) hypertension prednisone 40 mg (2 x 20 mg) PO DAILY 5 days 10 tabs 0RF J45.909 - Unspecified asthma, uncomplicated miscellaneous medical supply nebulizer machine with tubing 1 ea miscellaneous DAILY 1 ea 0RF J45.909 - Unspecified asthma, uncomplicated miscellaneous medical supply nebulizer machine with tubing 1 ea miscellaneous DAILY 1 ea 0RF J45.909 - Unspecified asthma, uncomplicated Coding Level of Care Code Est Pt Level 4 (75492) Diagnoses Hypertension I10 Mild intermittent asthma without complication J45.20 Asthma severity: mild Asthma persistence: intermittent Asthma complication type: uncomplicated
== END 2023-06-05 10:22 | disposition home or self-care (01) ==
PROVIDERS: PCP Internal Medicine; Visit Provider Nurse Practitioner Family
DX: I10 Essential (primary) hypertension (principal); J45.20 Mild intermittent asthma, uncomplicated
CPT/HCPCS: 99214

== ENCOUNTER 2023-07-01 07:18 | Outpatient (AMB) | payer OTHER, SELFPAY ==
--- NOTE | 2023-07-01 07:33 | MHC.PC.OV ---
Vital Signs 07/01/23 07:34 Height 5 ft 3 in Weight 211 lb BMI 37.4 BP 116/82 Blood Pressure Location Lt brachial Position Sitting Pulse 82 Pulse Source Auscultation Intake Visit Reasons: Annual Exam Intake Note: Patient here for an annual physical exam Lead Technologist In Cytogenetics Required: No Accompanied by: Self / Same As Patient Allergies Penicillins [PENICILLINS] Allergy (Severe, Verified 07/01/23 07:41) rash shellfish derived Allergy (Severe, Verified 07/01/23 07:41) Swelling Medication List - Last Reconciled 07/01/23 by Bee Ricks MD albuterol sulfate 90 mcg/actuation (Ventolin HFA) 2 puffs inhalation Q6H PRN albuterol sulfate 2.5 mg (3 mL) inhalation Q4-6H PRN ascorbic acid (vitamin C) 1 g PO DAILY 90 days blood pressure monitor As directed bupropion HCl 150 mg PO BID 90 days cetirizine 10 mg PO DAILY 90 days cholecalciferol (vitamin D3) 25 mcg PO DAILY 90 days erenumab-aooe (Aimovig Autoinjector) 140 mg subcut ONCE 30 days hydrochlorothiazide 25 mg PO DAILY 90 days lisinopril 10 mg PO DAILY 30 days magnesium oxide 400 mg PO BEDTIME 30 days meloxicam 15 mg PO DAILY 90 days miscellaneous medical supply 1 ea miscellaneous DAILY prednisone 40 mg (2 x 20 mg) PO DAILY 5 days sumatriptan succinate 50 - 100 mg orally at onset of headache, may repeat in 2 hrs PRN; max 2 tabs per day or 4 tabs/week (may take with Ibuprofen) 30 days topiramate 25 mg PO BEDTIME 90 days Tobacco use date assessed: 06/05/23 Dental Screening Dental Screen Date: 07/01/23 Did you have a dental visit in the last 12 months?: No Did you have a dental problem in the last 6 months where you did not have access to dental care?: No Was dental information given to patient?: Yes HPI HPI Comments History of Present Illness Details This is a 47-year-old female with moderate recurrent major depression and bipolar disorder that comes for her physical exam. Depression and bipolar disorder stable with medications. She is obese with a BMI of 37.4 and is enroll in [facility] weight management. Last Pap smear was 2020 and was HPV negative. Last mammogram was June 2022. Had colonoscopy March 2023 showing hyperplastic polyp and next colonoscopy should be in 10 years. No chest pain or shortness of breath. Labs were discussed. [facility] Medical History Class 2 obesity with body mass index (BMI) of 36.0 to 36.9 in adult Moderate recurrent major depression Hypertension Hypovitaminosis D Fatigue Chronic diarrhea Asthma Depression Surgical History Hx of colonoscopy H/O lithotripsy History of tubal ligation Family History (Updated 07/01/23 @ 07:47 by Bee Ricks MD) Father Liver disease Alcohol abuse Mother Diabetes Depression Hypertension Psoriasis Family/Other FH: mental illness Brother Heroin abuse Sister Anemia Hypertension Social History Housing: Apartment Are you a primary child caregiver to a significant other at home: No Do you presently have visiting nurse or other home services: No Alcohol intake: current Alcohol intake frequency: holidays/special occasions only Alcohol type: wine Patient Tobacco Use Status: Never used Tobacco e-Cigarette/Vaping Use: Never Used Second Hand Smoke Exposure: No Substance Use Type: Marijuana service: No Current occupational status: employed Current occupational exposures/hazards: No Cognitive needs: No Hearing needs: No Vision needs: No Female Reproductive History Menstrual Age of Menarche: 10 Questionnaire Thrive Questionnaire Date Thrive assessed: 10/29/22 BALTA-7 AMB Questionnaire BALTA-7 Date BALTA - 7 assessed: 10/29/22 Source: Developed by Drs. Darrel Minaya, Cynthia Veras, Rojas Syed and colleagues, with an educational jayleen from [employer]. Review of Systems Const All systems reviewed & are unremarkable except as noted in HPI and below Eyes Reports no additional complaints, Denies change in vision and Denies other visual disturbances Card Denies chest pain at rest, Denies chest pain with activity, Denies edema, Denies irregular heart rhythm, Denies claudication, Denies dyspnea, Denies dyspnea on exertion, Denies orthopnea, Denies paroxysmal nocturnal dyspnea and Denies slow heart rate Resp Denies cough, Denies dyspnea and Denies dyspnea on exertion GI Denies abdominal pain, Denies change in bowel habits, Denies excessive flatus, Denies nausea and Denies vomiting Denies urinary incontinence, Denies urinary hesitancy and Denies urinary urgency Musc Denies abnormal gait, Denies atrophy, Denies deformity and Denies limited range of motion Skin/Breast Denies bleeding lesions, Denies changing lesions and Denies rash Neuro Denies abnormal gait and Denies lack of coordination Physical exam (Primary Care) Vital Signs: Last Vital Signs BP 116/82 07/01/23 07:34 BMI result Body Mass Index 37.4 Tobacco/Smoking Status: Tobacco use Status Tobacco use date assessed 06/05/23 07/01/23 07:38 Patient Tobacco Use Status Never used Tobacco 07/01/23 07:38 e-Cigarette/Vaping Use Never Used 07/01/23 07:38 Thrive Assessment: Date of Thrive Assessment Date Thrive assessed 10/29/22 07/01/23 07:38 Const Orientation/consciousness: patient oriented x3 HENMT Head: Yes normal to inspection, Yes normocephalic and Yes atraumatic Ears: external ears normal Eyes General: appearance normal, both eyes and all related structures Eyelids: Yes eyelids normal Conjunctivae: conjunctivae normal Neck Neck: Yes normal visual inspection and Yes supple Resp Effort & Inspection: normal respiratory effort Auscultation: clear to auscultation bilaterally Cardio Jugular venous distension: no JVD Rate: regular rate Rhythm: regular rhythm Heart sounds: S1 normal heart sound present and S2 normal heart sound present GI Inspection: Yes normal to inspection Palpation (GI): Soft to palpation and nontender Auscultation: normal bowel sounds Skin General skin exam: no rashes or lesions noted Neuro General: patient oriented x3 and no focal motor deficits Extrem General: Yes full ROM Psych Appearance: grossly normal Office Procedures Flu Questionnaire Does the patient have a severe egg allergy?: No Does the patient have severe life threatening allergies?: No Does the patient have a fever or illness today?: No Has the patient ever had Guillain-[place] Syndrome?: No Has the patient ever had any past reaction to a flu shot?: No Immunizations flu vacc [id number] 6mos up(PF) 60 mcg(15 mcgx4)/0.5 mL IM syringe Performing Provider: Bee Ricks MD Performing Location: [facility] Administered by: LEVI Quintana on 07/01/23 08:06 Dose Route Admin Location Dispensed Lot Number Expiration Date NDC Vp [employer] 0.5 mL IM Left Deltoid 0.5 mL [id number] 03/22/24 15418-578-90 [employer] VIS Given Date VIS Provided VIS Publication Date 07/01/23 Single Vaccine 21 Eligibility Eligibility Date Funding Source Not [facility] Eligible 07/01/23 Private Assessment and Plan Assessment & Plan (1) Physical exam: Code(s): Z00.00 - Encounter for general adult medical examination without abnormal findings Plan: Repeat in a year. (2) Moderate recurrent major depression: Code(s): F33.1 - Major depressive disorder, recurrent, moderate Plan: Continue bupropion. (3) Bipolar disorder: Code(s): F31.9 - Bipolar disorder, unspecified Plan: Continue bupropion Orders: Orders UA CC w/rflx Micro + Cult Today R30.0 - Dysuria Influenza [id number] Immunization Today Z23 - Encounter for immunization Medications: New nitrofurantoin macrocrystal must administer with a meal/food 100 mg PO BID 14 caps 0RF 7 days Coding Level of Care Code Est Pt Prev Care 40-64y(15828) Diagnoses Physical exam Z00.00 Moderate recurrent major depression F33.1 Bipolar disorder F31.9 Time Spent (min) 35
[2023-07-01 07:34] VITALS: BP 116/82; PULSE 82; BMI 37.4
== END 2023-07-01 09:05 | disposition home or self-care (01) ==
PROVIDERS: Visit Provider Internal Medicine
DX: Z23 Encounter for immunization (principal); Z00.00 Encounter for general adult medical examination without abnormal findings; F31.9 Bipolar disorder, unspecified; E66.9 Obesity, unspecified; Z68.37 Body mass index [BMI] 37.0-37.9, adult
CPT/HCPCS: 90471; 90686; 99396

== ENCOUNTER 2023-11-20 14:03 | Outpatient (REF) | payer OTHER, SELFPAY ==
[2023-11-20 15:50] LABS: Influenza A PCR NEGATIVE (Negative); Influenza B PCR POSITIVE (Negative); Resp Syncy Virus RNA Qual PCR NEGATIVE (Negative); SARS COV2 PCR INHOUSE NEGATIVE (Negative)
== END 2023-11-20 14:04 | disposition home or self-care (01) ==
LOC: HO.LAB 14:03
PROVIDERS: PCP Internal Medicine; Visit Provider Internal Medicine
DX: Z11.52 Encounter for screening for COVID-19 (principal); Z20.822 Contact with and (suspected) exposure to COVID-19; R09.89 Other specified symptoms and signs involving the circulatory and respiratory systems
CPT/HCPCS: 0241U

== ENCOUNTER 2023-12-12 07:17 | Outpatient (REF) | payer OTHER, SELFPAY ==
[2023-12-12 08:13] LABS: Hematocrit 42.6 % (37.0-47.0); Hemoglobin 14.4 g/dl (12.0-16.0); Mean Corpuscular HGB Conc 33.8 g/dl (31.0-35.0); Mean Corpuscular Hemoglobin 30.1 pg (27.0-33.0); Mean Corpuscular Volume 88.9 fL (80.0-98.0); Mean Platelet Volume 9.5 fL (9.4-12.3); Platelet Count 328 X10*3/uL (160-400); Red Blood Count 4.79 X10*6/uL (4.20-5.50); White Blood Count 6.2 X10*3/uL (4.8-10.8)
[2023-12-12 08:43] LABS: HCG Quantitative < 2 mIU/mL; TSH reflex Free T4 1.39 uIU/mL (0.32-4.0)
[2023-12-13 11:33] LABS: Follicle Stimulating Hormone 7.2 mIU/mL; Lutenizing Hormone 5.1 mIU/mL; Prolactin 18.7 ng/mL
== END 2023-12-12 07:18 | disposition home or self-care (01) ==
LOC: HO.LAB 07:17
PROVIDERS: PCP Internal Medicine; Visit Provider Obstetrics & Gynecology
DX: N93.9 Abnormal uterine and vaginal bleeding, unspecified (principal); N92.6 Irregular menstruation, unspecified; Z32.02 Encounter for pregnancy test, result negative
CPT/HCPCS: 36415; 58100; 81025; 83001; 83002; 84146; 84443; 84702; 85027; 99212

== ENCOUNTER 2023-12-12 07:17 | Outpatient (AMB) | payer OTHER, SELFPAY ==
--- NOTE | 2023-12-12 07:26 | MHC.OFFVIS ---
Intake Vital Signs 12/12/23 07:30 Height 5 ft 3 in Weight 210 lb BMI 37.2 BP 122/70 Intake Visit Reasons: AUB Marketing Assistant Required: No Information Interpreted: non-clinical & clinical Sql Architect: Sql Architect Present (Sonya Hurt LEVI) Accompanied by: Self / Same As Patient Allergies Penicillins [PENICILLINS] Allergy (Severe, Verified 12/12/23 07:31) rash shellfish derived Allergy (Severe, Verified 12/12/23 07:31) Swelling Is last menstrual period known: Yes HPI HPI Comments History of Present Illness Details Presenting complaining of irregular menstrual cycles . Last mammogram was BI-RADS 1 in 05/14 Last co testing was in 05/13 was negative [facility] Medical History Class 2 obesity with body mass index (BMI) of 36.0 to 36.9 in adult Moderate recurrent major depression Hypertension Hypovitaminosis D Fatigue Chronic diarrhea Asthma Depression Surgical History Hx of colonoscopy H/O lithotripsy History of tubal ligation Family History Father Liver disease Alcohol abuse Mother Diabetes Depression Hypertension Psoriasis Family/Other FH: mental illness Brother Heroin abuse Sister Anemia Hypertension Social History Housing: Apartment Are you a primary point of care specialist to a significant other at home: No Do you presently have visiting nurse or other home services: No Alcohol intake: current Alcohol intake frequency: holidays/special occasions only Alcohol type: wine Patient Tobacco Use Status: Never used Tobacco e-Cigarette/Vaping Use: Never Used Second Hand Smoke Exposure: No Substance Use Type: Marijuana service: No Current occupational status: employed 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 Current occupational exposures/hazards: No Sexually active: Yes Sexual orientation: Straight/Heterosexual Gender identity: Female Cognitive needs: No Hearing needs: No Vision needs: No Female Reproductive History Menstrual Age of Menarche: 10 Review of Systems Const All systems reviewed & are unremarkable except as noted in HPI and below Card Reports as per HPI Resp Reports as per HPI GI Reports as per HPI and Reports no additional complaints Reports as per HPI Physical Exam Vital Signs: Last Vital Signs BP 122/70 12/12/23 07:30 BMI result Body Mass Index 37.2 Const General: cooperative, healthy appearing and comfortable Chest Chest palpation & inspection: normal inspection of the chest and normal palpation of entire chest wall Breast/axilla inspection: normal inspection of the breasts and normal inspection of the axillae Breast/axilla palpation: normal palpation of the breasts, normal palpation of the axillae and no axillary lymphadenopathy GI Inspection: Yes normal to inspection Palpation (GI): Soft to palpation, nontender, no guarding, not rigid and No hepatosplenomegaly present Percussion: Yes normal to percussion Auscultation: normal bowel sounds Rectal Exam - Female: deferred General: Yes bladder normal to palpation External Female Exam: No lesion Speculum Exam - Vagina: normal appearance of the vagina, normal palpation, normal vaginal discharge and not erythematous Speculum Exam - Cervix: normal appearance of the cervix and normal palpation Bimanual exam- vagina & uterus: normal bimanual exam, normal palpation, uterine size normal, bladder normal to palpation, consistency normal and normal palpation Bimanual Exam- Adnexa, other: normal adnexae, no masses and no tenderness Office Procedures Endometrial Biopsy Details: The patient was counseled regarding the indication and benefits of endometrial sampling to rule out endometrial pathology including not limited to endometrial hyperplasia or endometrial cancer and others; The alternatives (Either do nothing vs. hysteroscopy D&C) & the risks were discussed with the patient including but not limited: pain, uterine perforation, bleeding, infection, possible injury to bladder, bowel, ureter, possible need for blood transfusion with all its possible risks. The patient verbalized understanding all questions answered and signed consent. Urine test done in the office was negative The patient was placed into the dorsal lithotomy position; a speculum was inserted in the vagina. Using aseptic technique for the procedure, the cervix was cleansed with Betadine. The anterior lip of the cervix was grasped with a single tooth tenaculum. The uterus was sounded to 7 cm with a 4 mm Pipelle was used. Tissues samples were obtained and placed in formalin, in a patient labeled container and sent to the pathology department. At the end of the procedure, there was minimal bleeding noted The patient tolerated the procedure well and was discharged in good condition with the following instructions: Nothing in the vagina until the bleeding stops. No sex until the bleeding stops, to call if any of the following occurs: fever (>100.4), flu-like symptoms, abdominal pain, heavy bleeding, four smelling vaginal discharge. The patient was instructed to schedule a Follow up appointment in 2 weeks to discuss pathology results of the biopsy and treatment options. This note was generated with a voice recognition program. Some errors may have been overlooked during the review of this note. Sometimes these errors may affect the content or meaning of a given sentence. [id number] Biopsy Results AMB Test Urine AMB Test Urine Negative Last Edit by Sonya Hurt CMA on 12/12/23 07:39 Assessment & Plan Assessment & Plan (1) Abnormal uterine bleeding: Code(s): N93.9 - Abnormal uterine and vaginal bleeding, unspecified Plan: Screening mammogram, GC and chlamydia taken CBC, prolactin, FSH/LH, TSH, HCG, and pelvic ultrasound ordered. Discussed with the patient the different causes of abnormal bleeding including thyroid disorders, uterine and ovarian pathology, endometrial hyperplasia, carcinoma and other potential causes. Discussed with the patient the work up including CBC (to r/o anemia), TSH, prolactin, FSH/LH, pelvic Ultrasound, endometrial biopsy to r/o endometrial pathology. EMB done, see procedure note All questions answered and the patient verbalized understanding. Instructed the patient to schedule follow-up appointment in 2 weeks. Orders: Orders Lutenizing Hormone Today N93.9 - Abnormal uterine and vaginal bleeding, unspecified AMB HCG Urine Test Today Z32.02 - Encounter for test, result negative US pelvic and transvaginal Today N93.9 - Abnormal uterine and vaginal bleeding, unspecified TSH reflex Free T4 Today N93.9 - Abnormal uterine and vaginal bleeding, unspecified Prolactin Today N93.9 - Abnormal uterine and vaginal bleeding, unspecified HCG Quantitative Today N93.9 - Abnormal uterine and vaginal bleeding, unspecified Follicle Stimulating Hormone Today N93.9 - Abnormal uterine and vaginal bleeding, unspecified Complete Blood Count no Diff Today N93.9 - Abnormal uterine and vaginal bleeding, unspecified MM screening mammo BI Today Z12.31 - Encounter for screening mammogram for malignant neoplasm of breast AMB Endometrial Biopsy Today N93.9 - Abnormal uterine and vaginal bleeding, unspecified Coding Level of Care Code Est Pt Level 3 (21344) Procedure Only Diagnoses Abnormal uterine bleeding N93.9 CPT Codes Endometrial Biopsy - CPT: 32217-Egkeixhjtiq Biopsy ([id number])
[2023-12-12 07:30] VITALS: BP 122/70; BMI 37.2
== END 2023-12-12 07:52 | disposition home or self-care (01) ==
PROVIDERS: PCP Internal Medicine; Visit Provider Obstetrics & Gynecology
DX: N93.9 Abnormal uterine and vaginal bleeding, unspecified (principal); Z32.02 Encounter for pregnancy test, result negative
CPT/HCPCS: 58100; 99213

== ENCOUNTER 2023-12-12 09:15 | Outpatient (REF) | payer OTHER, SELFPAY ==
[2023-12-12 15:22] LABS: CT PCR NOT DETECTED (Not Detect.); NG PCR NOT DETECTED (Not Detect.)
== END 2023-12-12 09:16 | disposition home or self-care (01) ==
LOC: HO.LNP 09:15
PROVIDERS: Visit Provider Obstetrics & Gynecology
DX: N93.9 Abnormal uterine and vaginal bleeding, unspecified (principal)
CPT/HCPCS: 0353U; 88305

== ENCOUNTER 2023-12-27 10:47 | Outpatient (REF) | payer OTHER, SELFPAY ==
--- NOTE | ~2023-12-27 | US_ITS ---
EXAMINATION: US PELVIS CLINICAL INFORMATION: Abnormal uterine and vaginal bleeding. COMPARISON: CT abdomen and pelvis 10/04/2021. TECHNIQUE: Ultrasound of the pelvis is performed using both transabdominal and transvaginal transducers along with Doppler. Transvaginal imaging is performed due to inadequate visualization transabdominally. FINDINGS: Uterus: The uterus measures 8.3 x 4.4 x 5.2 cm. Smooth endometrial stripe measuring 3 mm in thickness. No visible uterine mass. There are nabothian cysts in the cervix. Adnexa: The right ovary is not seen. The left ovary measures 2.6 x 1.8 x 2.0 cm, volume 4.9 mL. The left ovary appears normal. No pelvic fluid. US/US pelvic and transvaginal IMPRESSION: The endometrial stripe measures 3 mm. No visible uterine mass.
== END 2023-12-27 10:48 | disposition home or self-care (01) ==
LOC: HO.US 10:47
PROVIDERS: PCP Internal Medicine; Visit Provider Obstetrics & Gynecology
DX: N93.9 Abnormal uterine and vaginal bleeding, unspecified (principal); Z12.31 Encounter for screening mammogram for malignant neoplasm of breast
CPT/HCPCS: 76830; 76856; 77063; 77067

== ENCOUNTER 2023-12-27 11:28 | Outpatient (REF) | payer OTHER, SELFPAY | END 2023-12-27 11:29 | disposition home or self-care (01) | LOC: HO.MAMMO 11:28 | PROVIDERS: PCP Internal Medicine; Visit Provider Obstetrics & Gynecology | DX: Z13.89 Encounter for screening for other disorder (principal) ==

== ENCOUNTER → 2023-12-27 11:45 | Outpatient (BNV) | payer OTHER, SELFPAY | PROVIDERS: PCP Internal Medicine; Visit Provider Radiology Diagnostic Radiology | DX: Z12.31 Encounter for screening mammogram for malignant neoplasm of breast (principal) | CPT/HCPCS: 77063; 77067 ==

== ENCOUNTER 2024-01-23 07:31 | Outpatient (AMB) | payer OTHER, SELFPAY ==
--- NOTE | 2024-01-23 07:41 | A.OFFVIS_ITS ---
Vital Signs 01/23/24 07:47 Height 5 ft 3 in Weight 208 lb BMI 36.8 BP 110/70 Intake Visit Reasons: EMB/lab/ultrasound follow-up Animal Care Attendant Required: No Information Interpreted: non-clinical & clinical Accompanied by: Self / Same As Patient Allergies Penicillins [PENICILLINS] Allergy (Severe, Verified 01/23/24 07:47) rash shellfish derived Allergy (Severe, Verified 01/23/24 07:47) Swelling HPI Comments Details: The patient is presenting for follow-up to discuss the results of her abnormal uterine bleeding workup and options of treatment. The following workup was done.: H&H= 14.4/42.6 TSH, prolactin, hCG, GC and chlamydia were negative. FSH/LH= 7.2/5.1 Endometrial biopsy pathology showed the following: Endometrium, biopsy: -Benign proliferative endometrium with focal breakdown; no atypia or carcinoma. -Benign endocervical glandular epithelium with squamous metaplastic cells with atypia, reactive vs dysplastic; follow up Pap test recommended. Co testing was done in 05/13 was negative. Mammogram was BI-RADS 1 in 01/14 Pelvic ultrasound showed the following: Uterus: The uterus measures 8.3 x 4.4 x 5.2 cm. Smooth endometrial stripe measuring 3 mm in thickness. No visible uterine mass. There are nabothian cysts in the cervix. Adnexa: The right ovary is not seen. The left ovary measures 2.6 x 1.8 x 2.0 cm, volume 4.9 mL. The left ovary appears normal. No pelvic fluid. [facility] Medical History Class 2 obesity with body mass index (BMI) of 36.0 to 36.9 in adult Moderate recurrent major depression Hypertension Hypovitaminosis D Fatigue Chronic diarrhea Asthma Depression Surgical History Hx of colonoscopy H/O lithotripsy History of tubal ligation Family History Father Liver disease Alcohol abuse Mother Diabetes Depression Hypertension Psoriasis Family/Other FH: mental illness Brother Heroin abuse Sister Anemia Hypertension Social History Housing: Apartment Are you a primary childcare provider to a significant other at home: No Do you presently have visiting nurse or other home services: No Alcohol intake: current Alcohol intake frequency: holidays/special occasions only Alcohol type: wine Patient Tobacco Use Status: Never used Tobacco e-Cigarette/Vaping Use: Never Used Second Hand Smoke Exposure: No Substance Use Type: Marijuana service: No Current occupational status: employed 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 Current occupational exposures/hazards: No Sexual orientation: Straight/Heterosexual Gender identity: Female Cognitive needs: No Hearing needs: No Vision needs: No Female Reproductive History Menstrual Age of Menarche: 10 Review of Systems Const All systems reviewed & are unremarkable except as noted in HPI and below Reports as per HPI and Reports no additional complaints GI Reports no additional complaints Reports no additional complaints Assessment & Plan Assessment & Plan (1) Abnormal uterine bleeding: Code(s): N93.9 - Abnormal uterine and vaginal bleeding, unspecified Category: Medical Plan: Discussed with the patient the results of the work up done and options of treatment including but not limited to BCP's, cyclic Progesterone, Mirena IUD, endometrial ablation and hysterectomy. All pros, cons, risks and benefits of each option were discussed with the patient and the patient decided to go ahead with cyclic Provera, so a more detailed discussion re: Progesterone treatment including mechanism of action, benefits (regular menses, endometrial protection form unopposed estrogen and reduction in the risk of endometrial hyperplasia and/or cancer ...), risks (Thrombosis, mood changes, weight gain, breast soreness, ? increased breast ca, others). Instructions were given to use a back- up method for contraception since this is not a method control, take Provera 1 tablet daily starting day 15-24 and to schedule a 3 months follow-up appointment; patient verbalized understanding and agreed with the plan. Coding Level of Care Code Est Pt Level 3 (98115) Diagnoses Abnormal uterine bleeding N93.9
[2024-01-23 07:47] VITALS: BP 110/70; BMI 36.8
== END 2024-01-23 07:56 | disposition home or self-care (01) ==
PROVIDERS: PCP Internal Medicine; Visit Provider Obstetrics & Gynecology
DX: N93.9 Abnormal uterine and vaginal bleeding, unspecified (principal)
CPT/HCPCS: 99213

== ENCOUNTER → 2024-01-23 07:31 | Outpatient (BNVA) | payer OTHER, SELFPAY | PROVIDERS: PCP Internal Medicine; Visit Provider Obstetrics & Gynecology | DX: N93.9 Abnormal uterine and vaginal bleeding, unspecified (principal) | CPT/HCPCS: 99212 ==

== ENCOUNTER 2024-04-27 08:10 | Outpatient (AMB) | payer OTHER, SELFPAY ==
--- NOTE | 2024-04-27 08:53 | MHC.OFFVIS ---
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 Patient reports ongoing pain for many months. No hx of injury. Hx of OA and fibromialgia. Her pain is through out the whole knee. Pain is worse when using the stairs and have her leg up. Patient has tried and failed 3 + months of taking NSAIDs/Tylenol, compound cream and knee bracing. 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 Patient reports that she had no injury prior to this onset of pain. She reports that pain began as a dull sensation that came and went, but reports that pain has now progressed to being constant and can get so severe that she feels that she may fall. Patient reports that she does have previous diagnoses of osteoarthritis in her lumbar spine, as well as fibromyalgia. The patient reports that she does notice that her right knee does swell significantly when compared to the left. Patient reports that over the last 3 months she has tried conservative measures, such as NSAIDs/Tylenol, rest, ice, compression, elevation, and while these provide temporary relief, she is looking for options that may be longer lasting. No other acute complaints or concerns at this time. [facility] Medical History Class 2 obesity with body mass index (BMI) of 36.0 to 36.9 in adult Moderate recurrent major depression Hypertension Hypovitaminosis D Fatigue Chronic diarrhea Asthma Depression Surgical History Hx of colonoscopy H/O lithotripsy History of tubal ligation Family History Father Liver disease Alcohol abuse Mother Diabetes Depression Hypertension Psoriasis Family/Other FH: mental illness Brother Heroin abuse Sister Anemia Hypertension Social History Housing: Apartment Are you a primary senior resident care director to a significant other at home: No Do you presently have visiting nurse or other home services: No Alcohol intake: current Alcohol intake frequency: holidays/special occasions only Alcohol type: wine Patient Tobacco Use Status: Never used Tobacco e-Cigarette/Vaping Use: Never Used Second Hand Smoke Exposure: No Substance Use Type: Marijuana service: No Current occupational status: employed 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 No lacerations or abrasions noted No erythema, ecchymosis, or evidence of infection Patient reports tenderness to palpation of the medial joint line, lateral joint line, and suprapatellar region of the right knee Active and passive range of motion full and intact. Positive Timothy's test bilaterally. No ligamentous laxity noted. Mildly positive patellar grind. Distal sensation intact Capillary refill brisk Office Procedures Joint Injection/Aspiration Joint Injection/Aspiration Secondary Site: right knee Prep: site was prepped using aseptic technique Injected: 80 mg of, DepoMedrol, with 8 mL of and 1% plain lidocaine Approach Used: anterolateral Procedure: The patient tolerated the procedure well and there was some relief with the local anesthesia Coding 95744 - Large joint Procedure code (CPT) selection complete Results Reviewed Results Reviewed: X-rays obtained in the office today and independently reviewed by me, Tirso Carney PA-C, demonstrate mild osteoarthritis of the right knee. No fracture or acute bony abnormality noted. Assessment & Plan Assessment & Plan (1) Osteoarthritis of right knee: Code(s): M17.11 - Unilateral primary osteoarthritis, right knee Category: Medical Plan 1. Mild osteoarthritis of the right knee Patient reports that she has tried conservative measures for pain relief, and would like to proceed with an injection at this time. The risks and benefits of a steroid injection including but not limited to risk of damage to blood vessels, nerves, tendons, infection, skin bleaching, failure to improve symptoms, increased pain, and possible need for further injections or other intervention were discussed with the patient and the patient wishes to proceed with the steroid injection. Once consent was obtained, I aseptically prepped the anterolateral joint line area of the right knee. I then injected the knee joint with a combination of 1 mL of Depo-Medrol (80 milligrams/milliliter), and 8 mL 1% lidocaine. The patient tolerated the procedure well with no complications. If patient experiences good relief with injection, she can follow-up as needed for additional injections if they start to wear off. Patient is advised that knee injections can only be performed once every 3 months, so no injection we will be available to her prior to 3 months from today Patient is also referred to physical therapy for range of motion, strengthening, and stabilization of the right knee Follow-up prn Orders: Orders XR knee RT 3V Today M17.11 - Unilateral primary osteoarthritis, right knee Coding Level of Care Code New Pt Level 3 (37422) Diagnoses Osteoarthritis of right knee M17.11 CPT Codes Coding - 30919 Large joint: 87621 - Large joint ([id number])
[2024-04-27 09:01] VITALS: BMI 36.8
== END 2024-04-27 09:29 | disposition home or self-care (01) ==
PROVIDERS: PCP Internal Medicine
DX: M17.11 Unilateral primary osteoarthritis, right knee (principal)
CPT/HCPCS: 20610; 99203

== ENCOUNTER 2024-04-27 08:10 | Outpatient (REF) | payer OTHER, SELFPAY ==
--- NOTE | ~2024-04-27 | XR_ITS ---
EXAMINATION: XR KNEE, RIGHT XR KNEE AP STANDING CLINICAL INFORMATION: Right knee osteoarthritis. COMPARISON: None TECHNIQUE: Lateral and axial views of the right knee were obtained. AP bilateral standing view of the knees was obtained. FINDINGS: Bones and soft tissues are normal. No fracture or joint effusion. Alignment is anatomic. Joint spaces are well maintained. No abnormal soft tissue calcification. XR/XR knee RT 3V IMPRESSION: Normal knee radiographs. Electronically signed by: Alfonso Dunn MD 05/21/2024 12:58 PM EDT
== END 2024-04-27 08:11 | disposition home or self-care (01) ==
LOC: HO.HOSX 08:10
PROVIDERS: PCP Internal Medicine
DX: M17.11 Unilateral primary osteoarthritis, right knee (principal); M79.7 Fibromyalgia
CPT/HCPCS: 20610; 73562; 99202; J1010

== ENCOUNTER 2024-09-25 07:14 | Outpatient (AMB) | payer OTHER, SELFPAY ==
[2024-09-25 07:39] VITALS: BP 120/96; PULSE 90; O2SAT 96; BMI 38.1
--- NOTE | 2024-09-25 07:39 | MHC.PC.OV ---
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 Accompanied by: Self / Same As Patient Allergies Penicillins [PENICILLINS] Allergy (Severe, Verified 09/25/24 07:48) rash shellfish derived Allergy (Severe, Verified 09/25/24 07:48) Swelling Medication List - Last Reconciled 09/25/24 by Bee Ricks MD albuterol sulfate 2.5 mg (3 mL) inhalation Q4-6H PRN albuterol sulfate 90 mcg/actuation (Ventolin HFA) 2 puffs inhalation Q6H PRN blood pressure monitor As directed bupropion HCl SR 150 mg PO BID 90 days cetirizine 10 mg PO DAILY 90 days cholecalciferol (vitamin D3) 25 mcg PO DAILY 90 days hydrochlorothiazide 25 mg PO DAILY 90 days magnesium oxide 400 mg PO BEDTIME 30 days miscellaneous medical supply 1 ea miscellaneous DAILY sumatriptan succinate 50 - 100 mg orally at onset of headache, may repeat in 2 hrs PRN; max 2 tabs per day or 4 tabs/week (may take with Ibuprofen) 30 days topiramate 25 mg PO BEDTIME 90 days Tobacco use date assessed: 09/25/24 Dental Screening Dental Screen Date: 09/25/24 Did you have a dental visit in the last 12 months?: Yes Did you have a dental problem in the last 6 months where you did not have access to dental care?: No Was dental information given to patient?: Patient has dentist HPI HPI Comments History of Present Illness Details The patient is a 48-year-old female presenting with concerns about hypertension management, a suspected urinary tract infection, and weight management issues. She reports that her blood pressure has been slightly elevated recently and she is currently taking hydrochlorothiazide and needs refill of lisinopril. However, she has encountered difficulties in continuing her lisinopril prescription due to pharmacy issues. She notes experiencing significant stress from her job and family life, which she believes may be impacting her blood pressure control and causing her migraines. Additionally, she suspects a urinary tract infection due to cloudy urine and significant discomfort by her urinalysis was negative for infection and she only has hematuria in which urinalysis will be repeated in 6 weeks. She has been managing the symptoms with cranberry juice but reports persistent urgency and pain. The patient also expresses concerns about her weight, noting it has increased, and she recalls a weight management prescription being unavailable due to supply issues. Her nutritional intake has decreased, often eating only once a day, potentially contributing to her weight issues. She also has migraines and I will refill Topamax for prophylaxis and magnesium as well as sumatriptan. [facility], [facility] Medical History (Updated 09/25/24 @ 07:58 by Bee Ricks MD) Class 2 obesity with body mass index (BMI) of 36.0 to 36.9 in adult Moderate recurrent major depression Hypertension Hypovitaminosis D Fatigue Chronic diarrhea Asthma Depression Surgical History Hx of colonoscopy H/O lithotripsy History of tubal ligation Family History Father Liver disease Alcohol abuse Mother Diabetes Depression Hypertension Psoriasis Family/Other FH: mental illness Brother Heroin abuse Sister Anemia Hypertension Social History Housing: Apartment Are you a primary ambulatory care coordinator to a significant other at home: No Do you presently have visiting nurse or other home services: No Alcohol intake: current Alcohol intake frequency: holidays/special occasions only Alcohol type: wine Patient Tobacco Use Status: Never used Tobacco e-Cigarette/Vaping Use: Never Used Second Hand Smoke Exposure: No Substance Use Type: Marijuana service: No Current occupational status: employed 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 1. Little interest or pleasure in doing things: not at all 2. Feeling down, depressed, or hopeless: not at all 3. Trouble falling or staying asleep, or sleeping too much: more than half the days 4. Feeling tired or having little energy: more than half the days 5. Poor appetite or overeating: several days 6. Feeling bad about yourself - or that you are a failure or have let yourself or your family down: several days 7. Trouble concentrating on things, such as reading the newspaper or watching television: not at all 8. Moving or speaking so slowly that other people could have noticed. Or the opposite - being so fidgety or restless that you have been moving around a lot more than usual: not at all 9. Thoughts that you would be better off or of hurting yourself in some way: not at all Total score: 6 Depression Screening Interpretation: Positive Depression Screening Follow-up: Existing condition, In treatment and Follow-up Visit Requested Depression Screening Done: Yes 92930 - PHQ-9 Billing: Yes Source: Developed by Drs. Darrel Minaya, Cynthia Veras, Rojas Syed and colleagues, with an educational jayleen from [employer]. Thrive Questionnaire Date Thrive assessed: 09/25/24 I am a: Patient What is your living situation today?: I have a steady place to live Within the past 12 months, did the food you bought not last and you didn't have the money to get more?: Never true Within the past 12 months, did you worry whether your food would run out before you got money to buy more?: Never true Do you have trouble paying for medicines?: No Do you have trouble getting transportation to medical appointments?: No Do you have trouble paying your heating and electricity bill?: No Do you have trouble taking care of your child, family member or friend?: No Do you have trouble with day-to-day activities such as bathing, preparing meals, shopping, managing finances, etc.?: No Are you currently unemployed and looking for a job?: No Are you interested in more education?: No Please select the resources that you would like help with: None Currently or been in a relationship where the following occur: No concerns reported THRIVE Score: 0 AUDIT C Alcohol Use Questionnaire (AUDIT-C) 1. How often do you have a drink containing alcohol?: Monthly or less 2. How many drinks containing alcohol do you have on a typical day when you are drinking?: 1 or 2 3. How often do you have six or more drinks on one occasion?: Never Total Score: 1 Score Reviewed/Action Taken: No BALTA-7 AMB Questionnaire BALTA-7 Date BALTA - 7 assessed: 09/25/24 Feeling nervous, anxious, or on edge: 0 = Not at all Not being able to stop or control worryin = Not at all Worrying too much about different things: 0 = Not at all Trouble relaxin = Not at all Being so restless that it is hard to sit still: 0 = Not at all Becoming easily annoyed or irritable: 0 = Not at all Feeling afraid as if something awful might happen: 0 = Not at all Total BALTA-7 score (0-4 normal; 5-9 mild; 10-14 moderate; 15-21 severe): 0 Source: Developed by Drs. Darrel Minaya, Cynthia Veras, Rojas Syed and colleagues, with an educational jayleen from [employer]. BALTA-7 Assessment Billing BALTA-7 Assessment Tool: BALTA-7 Assessment 21160 Review of Systems Const Details: - Cardiovascular: Reports high blood pressure - Neurological: Reports headaches consistent with migraines - Genitourinary: Reports cloudy urine and urinary urgency Physical exam (Primary Care) Vital Signs: Last Vital Signs Pulse 90 09/25/24 07:39 BP 120/96 H 09/25/24 07:39 Pulse Ox 96 09/25/24 07:39 Oxygen Delivery Method Room Air 09/25/24 07:39 BMI result Body Mass Index 38.1 BMI Assessment/Plan discussion: High BMI High, discussed plan: lifestyle, weight reduction, dietary and physical activity Tobacco/Smoking Status: Tobacco use Status Tobacco use date assessed 09/25/24 09/25/24 07:44 Patient Tobacco Use Status Never used Tobacco 09/25/24 07:44 e-Cigarette/Vaping Use Never Used 09/25/24 07:44 PHQ-9: PHQ-9 Score PHQ-9: Total score 6 09/25/24 08:30 Depression Screening Interpretation: Positive Depression Screening Follow-up: Existing condition, In treatment and Follow-up Visit Requested Thrive Assessment: Date of Thrive Assessment Date Thrive assessed 09/25/24 09/25/24 07:44 Currently or been in a relationship where the following occur: No concerns reported Const Other: General: No confusion Respiratory: Normal respiratory effort, clear to auscultation bilaterally Cardiovascular: No jugular venous distension, regular rate, regular rhythm, S1 normal heart sound present and S2 normal heart sound present Neurology: Patient oriented x3, no focal motor deficits and No confusion Extremities: Full ROM Psychology: Depressed, crying Results AMB Urinalysis, Automated UA Leukoctes 0 Arabella/uL Last Edit by LEVI Davidson on 09/25/24 08:30 UA Nitrite Negative Last Edit by Martinez Chau [facility] on 09/25/24 08:30 UA Urobilinogen 0 mg/dL Last Edit by Martinez Chau [facility] on 09/25/24 08:30 UA Protein 0 mg/dL Last Edit by Martinez Chau Jagdish on 09/25/24 08:30 UA pH 6.5 Last Edit by Martinez Chau [facility] on 09/25/24 08:30 UA Blood 1 Artemio/uL Last Edit by Martinez Chau Jagdish on 09/25/24 08:30 UA Specific [place] 1.010 Last Edit by Martinez Chau Jagdish on 09/25/24 08:30 UA Ketone Negative Last Edit by Martinez Chau Jagdish on 09/25/24 08:30 UA Bilirubin 0 mg/dL Last Edit by Martinez Chau Jagdish on 09/25/24 08:30 UA Glucose 0 mg/dL Last Edit by Martinez Chau [facility] on 09/25/24 08:30 Results Reviewed Results Reviewed: Laboratory Last Values Urine pH (Auto) 6.5 09/25/24 08:08 Specific [place] (Auto) 1.010 09/25/24 08:08 Urine Protein (Auto) 0 mg/dL 09/25/24 08:08 Glucose (UA)(Auto) 0 mg/dL 09/25/24 08:08 Urine Ketones (Auto) Negative 09/25/24 08:08 Urine Blood (Auto) 1 Artemio/uL 09/25/24 08:08 Urine Nitrite (Auto) Negative 09/25/24 08:08 Urine Bilirubin (Auto) 0 mg/dL 09/25/24 08:08 Urine Urobilinogen (Auto) 0 mg/dL 09/25/24 08:08 Leukocyte Esterase (Auto) 0 Aarbella/uL 09/25/24 08:08 Coding Level of Care Code Est Pt Level 4 (12198) Complex EM visit Add On G2211 Diagnoses Mild major depression F32.0 Class 2 obesity with body mass index (BMI) of 38.0 to 38.9 in adult E66.812; Z68.38 Migraine G43.909 Hypertension I10 Additional Codes BALTA-7 Assessment Billing - BALTA-7 Assessment Tool: BALTA-7 Assessment 81739 ([id number]) PHQ-9 - 77668 - PHQ-9 Billing: Yes ([id number]) Time Spent (min) 25 Assessment & Plan Assessment & Plan (1) Mild major depression: Code(s): F32.0 - Major depressive disorder, single episode, mild Category: Medical (2) Class 2 obesity with body mass index (BMI) of 38.0 to 38.9 in adult: Code(s): E66.812 - Obesity, class 2; Z68.38 - Body mass index [BMI] 38.0-38.9, adult Category: Medical (3) Migraine: Code(s): G43.909 - Migraine, unspecified, not intractable, without status migrainosus Category: Medical (4) Hypertension: Code(s): I10 - Essential (primary) hypertension Category: Medical Plan - Prescribe lisinopril and coordinate with pharmacy to ensure availability. - Conduct laboratory tests for urinary analysis to confirm suspected UTI. - Administer appropriate antibiotic therapy if infection is confirmed. - Discuss and attempt to renew weight management prescription, considering alternatives if necessary. - Provide Vitamin D supplementation. - Instruct patient to monitor blood pressure and follow up in three weeks. - Recommend stress management techniques to aid in blood pressure control. Patient was informed and verbally consented to the use of an ambient scribe for clinic note documentation during this visit. I discussed the need for consistent hypertension management and encouraged the patient to monitor her blood pressure regularly. We talked about options to renew her lisinopril prescription, advising follow-up coordination with her pharmacy. I explained the likely symptoms of a urinary tract infection and the plan for confirming and treating any infection as necessary. For weight management, I outlined the supply challenges of certain medications and the importance of alternative strategies like diet and exercise, suggesting we explore these further. Risks and benefits were thoroughly discussed, with the patient consenting to the outlined plan. I encouraged her to return in three weeks or sooner with any worsening symptoms. Orders: Orders Comprehensive [place]. Panel Fast Today E66.812 - Obesity, class 2, Z68.38 - Body mass index [BMI] 38.0-38.9, adult Thyroid Stimulating Hormone Today E66.812 - Obesity, class 2, Z68.38 - Body mass index [BMI] 38.0-38.9, adult Lipid Panel Today E66.812 - Obesity, class 2, Z68.38 - Body mass index [BMI] 38.0-38.9, adult Complete Blood Count Auto Diff Today E66.812 - Obesity, class 2, Z68.38 - Body mass index [BMI] 38.0-38.9, adult AMB Urinalysis Automated Today Z13.9 - Encounter for screening, unspecified Medications: New bupropion HCl XL 300 mg PO QAM 90 tabs 0RF 90 days F32.0 - Major depressive disorder, single episode, mild tirzepatide (weight loss) (Zepbound) for 4 weeks 2.5 mg (0.5 mL) subcut QWEEK 2 mL 0RF 4 weeks E66.812 - Obesity, class 2, Z68.38 - Body mass index [BMI] 38.0-38.9, adult lisinopril 5 mg PO DAILY 90 tabs 0RF 90 days Refilled cetirizine 10 mg PO DAILY 90 tabs 1RF 90 days cholecalciferol (vitamin D3) 25 mcg PO DAILY 90 caps 1RF 90 days magnesium oxide may hold for loose stools 400 mg PO BEDTIME 30 tabs 6RF 30 days sumatriptan succinate 50 - 100 mg orally at onset of headache, may repeat in 2 hrs PRN; max 2 tabs per day or 4 tabs/week (may take with Ibuprofen) 12 tabs 6RF migraine headache 30 days topiramate 25 mg PO BEDTIME 90 tabs 1RF 90 days G43.909 - Migraine, unspecified, not intractable, without status migrainosus Discontinued bupropion HCl SR Discontinued Reason: Patient Completed Course 150 mg PO BID 90 days 180 tabs 1RF F33.1 - Major depressive disorder, recurrent, moderate Patient Instructions: - Take lisinopril as prescribed and follow up with the pharmacy promptly. - Return for urine testing today; await instructions if antibiotics are needed. - Monitor blood pressure daily and record readings. - Follow the prescribed Vitamin D regimen. - Seek stress management strategies, such as mindfulness or relaxation exercises. - Maintain regular meal patterns to help with weight management. - Contact the clinic if symptoms worsen or new symptoms develop.
== END 2024-09-25 08:55 | disposition home or self-care (01) ==
LOC: HO.HMCH 07:14
PROVIDERS: PCP Internal Medicine; Visit Provider Internal Medicine
DX: F32.0 Major depressive disorder, single episode, mild (principal); E66.812 Obesity, class 2; Z68.38 Body mass index [BMI] 38.0-38.9, adult; G43.909 Migraine, unspecified, not intractable, without status migrainosus; I10 Essential (primary) hypertension; Z13.9 Encounter for screening, unspecified

== ENCOUNTER 2024-09-25 07:14 | Outpatient (REF) | payer OTHER, SELFPAY ==
[2024-09-25 08:19] LABS: MANUAL DIFF FLAG NO
[2024-09-25 08:43] LABS: Basophils Percent Auto 0.3 % (0-2); Eosinophils Absolute Auto 0.1 X10*3/uL (0.0-0.4); Eosinophils Percent Auto 1.3 % (0-4); Hematocrit 44.2 % (37.0-47.0); Hemoglobin 14.8 g/dl (12.0-16.0); Imm Gran Abs Auto 0.04 X10*3/uL (0.00-0.03); Imm Gran Pct Auto 0.5 % (0.0-0.4); Lymphocytes Absolute Auto 2.6 X10*3/uL (1.2-4.9); Lymphocytes Percent Auto 29.9 % (20-40); Mean Corpuscular HGB Conc 33.5 g/dl (31.0-35.0); Mean Corpuscular Hemoglobin 30.7 pg (27.0-33.0); Mean Corpuscular Volume 91.7 fL (80.0-98.0); Mean Platelet Volume 9.7 fL (9.4-12.3); Monocytes Absolute Auto 0.4 X10*3/uL (0.1-1.2); Monocytes Percent Auto 5.1 % (2-11); Neutrophils Absolute Auto 5.4 x10*3/uL (2.0-8.3); Neutrophils Percent Auto 62.9 % (45-73); Platelet Count 338 X10*3/uL (160-400); Red Blood Count 4.82 X10*6/uL (4.20-5.50); White Blood Count 8.6 X10*3/uL (4.8-10.8)
[2024-09-25 09:24] LABS: Alanine Aminotransferase 26 U/L (0-31); Albumin Level 4.1 g/dL (3.5-5.0); Alkaline Phosphatase 74 U/L (39-117); Anion Gap 12 (12-20); Aspartate Amino Transferase 24 U/L (5-31); Bilirubin Total 0.7 mg/dL (0.0-1.0); Blood Urea Nitrogen 11 mg/dL (9-16); Calcium 9.3 mg/dL (8.4-10.2); Carbon Dioxide 28 mmol/L (22-29); Chloride 103 mmol/L (96-108); Cholesterol 210 mg/dL (<200); Estimated Glomerular Filt Rate 55; Glucose Fasting 160 mg/dL (60-99); HDL Cholesterol 44 mg/dL (>40); LDL Cholesterol Calculated 132 mg/dL (<100); Sodium 139 mmol/L (135-145); Thyroid Stimulating Hormone 1.13 uIU/mL (0.32-4.0); Total Protein 7.9 g/dL (6.5-8.0); Triglycerides 171 mg/dL (<150)
== END 2024-09-25 07:15 | disposition home or self-care (01) ==
LOC: HO.LAB 07:14
PROVIDERS: PCP Internal Medicine; Visit Provider Internal Medicine
DX: E66.812 Obesity, class 2 (principal); Z68.38 Body mass index [BMI] 38.0-38.9, adult; F32.0 Major depressive disorder, single episode, mild; G43.909 Migraine, unspecified, not intractable, without status migrainosus; I10 Essential (primary) hypertension; Z71.3 Dietary counseling and surveillance
CPT/HCPCS: 36415; 80053; 80061; 81003; 84443; 85025; 96127; 99212

== ENCOUNTER 2024-09-29 12:18 | Outpatient (REF) | payer OTHER, SELFPAY ==
--- NOTE | ~2024-09-29 | XR_ITS ---
CLINICAL HISTORY: R31.9 - Hematuria, unspecified 1 view abdomen Comparison: None Findings: No pneumoperitoneum or pneumatosis. Midline pelvic calcifications, possible phleboliths. No acute fractures. IMPRESSION: Normal bowel gas pattern This document has been electronically signed by: Dwain Villa MD on 10/01/2024 20:45:30
== END 2024-09-29 12:19 | disposition home or self-care (01) ==
LOC: HO.XRAY 12:18
PROVIDERS: PCP Internal Medicine; Visit Provider Internal Medicine
DX: R31.9 Hematuria, unspecified (principal)
CPT/HCPCS: 74018

== ENCOUNTER → 2024-09-29 12:24 | Outpatient (BNV) | payer OTHER, SELFPAY | PROVIDERS: PCP Internal Medicine; Visit Provider Specialist | DX: R31.9 Hematuria, unspecified (principal) | CPT/HCPCS: 74018 ==

== ENCOUNTER 2024-10-30 07:01 | Outpatient (REF) | payer OTHER, SELFPAY ==
--- OUTSIDE RECORDS SUMMARY | 2024-10-30 07:03 | XMS_ITS | Clinical Summary ---
Author Organization [facility] Address [address] [place] [address] Phone Care Team Providers Care Division Roadmaster Name Role Phone Bee Ricks MD Primary Care Provider [phone] Allergies Active Allergy Reactions Criticality Noted Date Comments Penicillins Unknown 07/31/2024 Medications No known medications Active Problems No known active problems Encounters Date Type Department Care Team Description 07/31/2024 9:26 AM EST - 07/31/2024 10:31 AM EST Emergency [facility] Emergency [address] [place] [address] Anal fissure (Primary Dx) Discharge Disposition: Home or Self Care from Last 3 Months Surgical History Surgery Date Site/Laterality Comments TUBAL LIGATION PROCEDURE: HISTORICAL TUBAL LIGATION Medical History Medical History Date Comments Essential (primary) hypertension DX:Essential (primary) hypertension Bipolar disorder (CMS/HCC) DX:Bi polar disorder (HCC) Mild intermittent asthma, uncomplicated DX:Mild intermittent asthma, uncomplicated Fibromyalgia DX:Fibromyalgia Insomnia DX:Insomnia Arthropathy DX:Arthropathy Family History Medical History Relation Name Comments COPD Mother Diabetes Mother Relation Name Status Comments Mother Social History Tobacco Use Types Packs/Day Years Used Date Smoking Tobacco: Never Smokeless Tobacco: Never Alcohol Use Standard Drinks/Week Comments Not Currently 0 (1 standard drink = 0.6 oz pur e alcohol) Sex and Gender Information Value Date Recorded Sex Assigned at Not on file Gender Identity Female 07/31/2024 9:49 AM EST Sexual Orientation Not on file Job Start Date Occupation Industry Not on file Not on file Not on file Obstetrics History Last Filed Vital Signs Vital Sign Reading Time Taken Comments Blood Pressure 119/84 07/31/2024 7:57 AM EST Pulse 86 07/31/2024 7:57 AM EST Temperature 36.8 ??C (98.2 ??F) 07/31/2024 7:57 AM ES T Respiratory Rate 18 07/31/2024 7:57 AM EST Oxygen Saturation 100% 07/31/2024 7:57 AM EST Inhaled Oxygen Concentration - - Weight 94.3 kg (208 lb) 07/31/2024 1:08 AM EST Height 165.1 cm (5' 5 ) 07/31/2024 1:08 AM EST Body Mass Index 34.61 07/31/2024 1:08 AM EST Plan of Treatment Health Maintenance Due Date Last Done Comments Pneumococcal Vaccine: Pediatrics (0 to 5 Years) and At-Risk Patients (6 to 64 Years) (1 of 2 - PCV) 11/29/1979 Cervical Cancer Screening: Pap Smear 1994 Hepatitis B Vaccines (3 of 3 - 19+ 3-dose series) 04/09/2017 12/07/2016, 10/10/2016 Breast Cancer Screening 02/28/2018 02/29/2016 Cholesterol Screening (Lipid Panel) 08/26/2022 Colorectal Cancer Screening: Colonoscopy 08/26/2022 Depression Screening 08/26/2022 HIV Screening 08/26/2022 Hepatitis C Screening 08/26/2022 Social Influencers of Health Screening 08/26/2022 Zoster Vaccines (1 of 2) 11/29/2023 COVID-19 Vaccine ( - season) 2024 10/20/2021, 09/22/2021 Influenza Vaccine (#1) 2024 , 06/28/2022, 11/20/2017, Additional history exists Hypertension/CHF/CAD Annual BMP Blood Test 07/31/2025 07/31/2024 DTaP,Tdap,and Td Vaccines (2 - Td or Tdap) 06/11/2028 06/11/2018 Hepatitis A Vaccines Aged Out 10/10/2016 No long er eligible based on patient's age to complete this topic HIB Vaccines Aged Out No longer eligi ble based on patient's age to complete this topic HPV Vaccines Aged Out No longer eligi ble based on patient's age to complete this topic IPV Vaccines Aged Out No longer eligi ble based on patient's age to complete this topic MMR Vaccines Aged Out No longer eligi ble based on patient's age to complete this topic Meningococcal ACWY Vaccine Aged Out N o longer eligible based on patient's age to complete this topic RSV Immunization Patients Under 20 months Aged Out No longer eligible based on patient's age to complete this topic Varicella Vaccines Aged Out No longer eligible based on patient's age to complete this topic Procedures Procedure Name Priority Date/Time Associated Diagnosis Comments CBC WITH AUTO DIFFERENTIAL STAT 07/31/2024 3:11 AM EST LIPASE STAT 07/31/2024 3:11 AM EST COMPREHENSIVE METABOLIC PANEL STAT 07/31/2024 3:11 AM EST CBC AND DIFFERENTIAL STAT 07/31/2024 3:11 AM EST from Last 3 Months Results * (ABNORMAL) CBC auto differential (07/31/2024 3:11 AM EST) WBC 9.5 4.8 - 10.8 K/mcL LAB HEMETOLOGY METHOD 07/31/2024 3:22 AM [facility] RBC 4.60 3.80 - 4.80 M/mcL LAB HEMETOLOGY METHOD 07/31/2024 3:22 AM [facility] Hemoglobin 14.0 11.5 - 16.0 g/dL LAB HEMETOLOGY METHOD 07/31/2024 3:22 AM [facility] Hematocrit 42.1 35.0 - 47.0 % LAB HEMETOLOGY METHOD 07/31/2024 3:22 AM [facility] MCV 91.9 79.0 - 98.0 FL LAB HEMETOLOGY METHOD 07/31/2024 3:22 AM [facility] MCH 30.6 27.0 - 32.0 pcg LAB HEMETOLOGY METHOD 07/31/2024 3:22 AM [facility] MCHC 33.3 32.0 - 37.0 g/dL LAB HEMETOLOGY METHOD 07/31/2024 3:22 AM [facility] RDW 13.0 11.0 - 15.0 % LAB HEMETOLOGY METHOD 07/31/2024 3:22 AM [facility] Platelets 361 130 - 400 K/mcL LAB HEMETOLOGY METHOD 07/31/2024 3:22 AM [facility] MPV 9.4 7.0 - 11.0 FL LAB HEMETOLOGY METHOD 07/31/2024 3:22 AM [facility] NRBC 0.0 <1.0 % LAB HEMETOLOGY METHOD 07/31/2024 3:22 AM [facility] NRBC Absolute 0.00 <0.10 K/mcL LAB HEMETOLOGY METHOD 07/31/2024 3:22 AM [facility] Neutrophils Relative 76.1 % LAB HEMETOLOGY METHOD 07/31/2024 3:22 AM [facility] Lymphocytes Relative 16.5 % LAB HEMETOLOGY METHOD 07/31/2024 3:22 AM [facility] Monocytes Relative 6.1 % LAB HEMETOLOGY METHOD 07/31/2024 3:22 AM [facility] Eosinophils Relative 0.7 % LAB HEMETOLOGY METHOD 07/31/2024 3:22 AM [facility] Basophils Relative 0.3 % LAB HEMETOLOGY METHOD 07/31/2024 3:22 AM [facility] Immature Granulocytes Relative 0.3 % LAB HEMETOLOGY METHOD 07/31/2024 3:22 AM [facility] Neutrophils Absolute 7.22(H) 1.50 - 7.00 K/mcL LAB HEMETOLOGY METHOD 07/31/2024 3:22 AM [facility] Lymphocytes Absolute 1.57 1.00 - 5.00 K/mcL LAB HEMETOLOGY METHOD 07/31/2024 3:22 AM [facility] Monocytes Absolute 0.58 0.20 - 1.00 K/mcL LAB HEMETOLOGY METHOD 07/31/2024 3:22 AM EST [facility] Eosinophils Absolute 0.07 0.00 - 0.50 K/[facility] LAB HEMETOLOGY METHOD 07/31/2024 3:22 AM EST [facility] Basophils Absolute 0.03 0.00 - 0.20 K/[facility] LAB HEMETOLOGY METHOD 07/31/2024 3:22 AM EST [facility] Immature Granulocytes Absolute 0.03 0.00 - 0.03 K/[facility] LAB HEMETOLOGY METHOD 07/31/2024 3:22 AM EST [facility] Blood Venous blood specimen / Unknown Venipuncture / Unknown 07/31/2024 3:11 AM EST 07/31/2024 3:17 AM EST Prashanth Garcia MD LAB BLOOD ORDERABLES Performing Organization Address City/[facility]/ZIP Co de Phone Number [facility] [address] [place] [address], [place] [phone] * Lipase (07/31/2024 3:11 AM EST) Pathologist [facility] Lipase 20 13 - 75 unit/L LAB CHEMISTRY METHOD 07/31/2024 3:41 AM EST [facility] Blood Venous blood specimen / Unknown Venipuncture / Unknown 07/31/2024 3:11 AM EST 07/31/2024 3:17 AM EST Prashanth Garcia MD LAB BLOOD ORDERABLES [facility] [address] [place] [address], [place] [phone] * (ABNORMAL) Comprehensive metabolic panel (07/31/2024 3:11 AM EST) Sodium 140 133 - 145 mmol/L LAB CHEMISTRY METHOD 07/31/2024 3:41 AM EST [facility] Potassium 3.4(L) 3.5 - 5.5 mmol/L LAB CHEMISTRY METHOD 07/31/2024 3:41 AM [facility] Chloride 105 96 - 110 mmol/L LAB CHEMISTRY METHOD 07/31/2024 3:41 AM [facility] CO2 29 21 - 32 mmol/L LAB CHEMISTRY METHOD 07/31/2024 3:41 AM [facility] Anion Gap 6 3 - 11 LAB CHEMISTRY METHOD 07/31/2024 3:41 AM [facility] Glucose 163(H) 70 - 100 mg/dL LAB CHEMISTRY METHOD 07/31/2024 3:41 AM [facility] BUN 21 5 - 25 mg/dL LAB CHEMISTRY METHOD 07/31/2024 3:41 AM [facility] Creatinine 1.29(H) 0.50 - 1.10 mg/dL LAB CHEMISTRY METHOD 07/31/2024 3:41 AM [facility] eGFR 51(L) >=60 mL/min/1. 73m2 LAB CHEMISTRY METHOD 07/31/2024 3:41 AM [facility] Comment:Calculation based on the??Chronic Kidney Disease Epidemiology Collaboration (CKD-EPI) equation refit??without adjustment for race. BUN/Creatinine Ratio 16.3 LAB CHEMISTRY METHOD 07/31/2024 3:41 AM [facility] Calcium 9.2 8.5 - 10.5 mg/dL LAB CHEMISTRY METHOD 07/31/2024 3:41 AM [facility] AST (SGOT) 14 10 - 42 unit/L LAB CHEMISTRY METHOD 07/31/2024 3:41 AM [facility] ALT (SGPT) 19 10 - 60 unit/L LAB CHEMISTRY METHOD 07/31/2024 3:41 AM [facility] Alkaline Phosphatase 83 42 - 121 unit/L LAB CHEMISTRY METHOD 07/31/2024 3:41 AM [facility] Total Protein 7.2 6.0 - 8.0 g/dL LAB CHEMISTRY METHOD 07/31/2024 3:41 AM EST [facility] Albumin 3.4 3.2 - 5.0 g/dL LAB CHEMISTRY METHOD 07/31/2024 3:41 AM EST [facility] Total Bilirubin 0.5 0.0 - 1.4 mg/dL LAB CHEMISTRY METHOD 07/31/2024 3:41 AM EST [facility] Blood Venous blood specimen / Unknown Venipuncture / Unknown 07/31/2024 3:11 AM EST 07/31/2024 3:17 AM EST Prashanth Garcia MD LAB BLOOD ORDERABLES [facility] [address] [place] [address], from Last 3 Months Care Teams Division Roadmaster Relationship Specialty Start Date End Date Bee Ricks MD [address] [place] [address] PCP - General Internal Medicine 07/31/24
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
[2024-10-30 07:49] LABS: Estimated Average Glucose 114 mg/dL; Hemoglobin A1C 137.0012 umol/L; Hemoglobin A1c % 5.6 % (<6.0); Total Hemoglobin (HGBA1C) 3624.3324 umol/L
[2024-10-30 08:13] LABS: Alanine Aminotransferase 25 U/L (0-31); Albumin Level 3.9 g/dL (3.5-5.0); Alkaline Phosphatase 71 U/L (39-117); Anion Gap 12 (12-20); Aspartate Amino Transferase 21 U/L (5-31); Bilirubin Total 0.6 mg/dL (0.0-1.0); Blood Urea Nitrogen 22 mg/dL (9-16); Calcium 9.2 mg/dL (8.4-10.2); Carbon Dioxide 24 mmol/L (22-29); Chloride 105 mmol/L (96-108); Estimated Glomerular Filt Rate 51; Glucose Fasting 122 mg/dL (60-99); Potassium 3.7 mmol/L (3.3-5.1); Sodium 137 mmol/L (135-145); Total Protein 7.6 g/dL (6.5-8.0)
== END 2024-10-30 07:02 | disposition home or self-care (01) ==
LOC: HO.LAB 07:01
PROVIDERS: PCP Internal Medicine; Visit Provider Internal Medicine
DX: E11.9 Type 2 diabetes mellitus without complications (principal); R73.9 Hyperglycemia, unspecified
CPT/HCPCS: 36415; 80053; 83036

== ENCOUNTER 2024-11-05 11:14 | Outpatient (AMB) | payer OTHER, SELFPAY ==
--- NOTE | 2024-11-05 11:15 | MHC.OFFVIS ---
Intake Visit Reasons: follow up kidney stones(last seen 2021) Intake Note: Patient is present for KIDNEY STONES F/U Urology Medication:NONE Antibiotic Allergy:PENICILLIN Blood Thinner:NONE Technology Officer Required: No Allergies Penicillins [PENICILLINS] Allergy (Severe, Verified 11/05/24 11:15) rash shellfish derived Allergy (Severe, Verified 11/05/24 11:15) Swelling HPI Comments Details: Мария is a pleasant female. She is a patient of Dr. Ricks. She is seen for the following urologic conditions - nephrolithiasis Telemedicine Evaluation 15 min Consultation Doximity Shana Video Last seen in 2021 UA negative 10/17 Episode of hematuria which resolved Episodic flank pain KUB no evidence of stone Organize renal ultrasound and follow-up nurse-practitioner Nephrolithiasis Emergency room visit in 2021 Imaging with 5 mm proximal left UPJ stone Had been offered as well for left proximal ureteric stone Intervention 10/14 left ureteric ESWL Imaging - 07/14 renal small stone on right Prior E coli infection resistant to ampicillin, nitrofurantoin and sulfa. Sensitive to Levaquin. [facility] Medical History Class 2 obesity with body mass index (BMI) of 36.0 to 36.9 in adult Moderate recurrent major depression Hypertension Hypovitaminosis D Fatigue Chronic diarrhea Asthma Depression Surgical History Hx of colonoscopy H/O lithotripsy History of tubal ligation Family History Father Liver disease Alcohol abuse Mother Diabetes Depression Hypertension Psoriasis Family/Other FH: mental illness Brother Heroin abuse Sister Anemia Hypertension Social History Housing: Apartment Are you a primary primary health care nurse to a significant other at home: No Do you presently have visiting nurse or other home services: No Alcohol intake: current Alcohol intake frequency: holidays/special occasions only Alcohol type: wine Patient Tobacco Use Status: Never used Tobacco e-Cigarette/Vaping Use: Never Used Second Hand Smoke Exposure: No Substance Use Type: Marijuana service: No Current occupational status: employed 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 Current occupational exposures/hazards: No Sexual orientation: Straight/Heterosexual Gender identity: Female Cognitive needs: No Hearing needs: No Vision needs: No Female Reproductive History Menstrual Age of Menarche: 10 Review of Systems Const All systems reviewed & are unremarkable except as noted in HPI and below Reports no additional complaints Resp Reports no additional complaints GI Reports no additional complaints Reports as per HPI Musc Reports no additional complaints Physical Exam Telemedicine evaluation Appropriate responses Regular breathing rate and rhythm HEENT Head: Yes normal to inspection Ears: hearing grossly normal bilaterally Eyes General: appearance normal, both eyes and all related structures Neck Neck: Yes normal visual inspection Chest Chest palpation & inspection: normal inspection of the chest Resp Effort & Inspection: normal respiratory effort and able to speak in complete sentences Telehealth Telehealth Telehealth Platform: Eachb[employer] Location of provider rendering services: practice address Location of patient: address on file Patient Identification confirmed using: Name, : Yes Telehealth method: video Patient verbally consented to treatment: Yes Patient verbally consented to billing insurance company: Yes Patient informed of any privacy concerns related to visit: Yes Minutes spent on Phone/Video with Pt.: 15 Assessment & Plan Assessment & Plan (1) Nephrolithiasis: Code(s): N20.0 - Calculus of kidney Category: Medical Plan Renal ultrasound Follow-up nurse-practitioner Orders: Orders US renal BI Today N20.0 - Calculus of kidney Patient Instructions: This note is constructed using voice recognition software. While every effort has been made to ensure accuracy coding specialist errors may have been included. Imaging studies, laboratory and physical exam results were discussed and reviewed in detail. No major barriers to patient understanding were identified. An opportunity to ask questions regarding the treatment plan was provided. All questions were answered. The patient expressed understanding and agreement with the above treatment plan. The patient is aware they should contact our office by phone for worsening of their current condition or the appearance of new urologic symptoms. Compliance is encouraged with any medications and followup testing that is ordered. It is a privilege to participate in the urologic care of your patient. If you have any questions or concerns regarding treatment for the above conditions, or other urologic issues, please do not hesitate to contact me. The office telephone contact is [phone]. Sincerely, Dr Devon Mcginnis MD, [facility] - Urology Compassionate Specialist Care for the Genitourinary System Coding Level of Care Code Tele Est Pt Level 4 (48233) Diagnoses Nephrolithiasis N20.0
--- OUTSIDE RECORDS SUMMARY | 2024-11-05 11:53 | XMS_ITS | Clinical Summary ---
Author Organization [facility] Address [address] [place] [id number] Phone Care Team Providers Care Intelligence Research Specialist Name Role Phone Bee Ricks MD Primary Care Provider [phone] Allergies Active Allergy Reactions Criticality Noted Date Comments Penicillins Unknown 07/31/2024 Medications No known medications Active Problems No known active problems Surgical History Surgery Date Site/Laterality Comments TUBAL [...] drink = 0.6 oz pur e alcohol) Comments Unknown Sex and Gender Information Value Date Recorded Sex Assigned at Not on file Legal Sex Female 8:27 AM EST Gender Identity Female 07/31/2024 9:49 AM EST Sexual Orientation Not on file Obstetrics History Last Filed [...] Due Date Last Done Comments Pneumococcal Vaccine: 50+ Years (1 of 2 - PCV) 1992 Pneumococcal Vaccine: Pediatrics (0 to 5 Years) and At-Risk Patients (6 to 64 Years) (1 of 2 - PCV) 1992 Cervical Cancer Screening: Pap Smear 1994 Hepatitis B Vaccines (3 of 3 - 19+ 3-dose series) 04/09/2017 12/07/2016, 10/10/2016 Breast Cancer Screening 02/28/2018 02/29/2016 Cholesterol Screening (Lipid Panel) 08/26/2022 Colorectal Cancer Screening: Colonoscopy 08/26/2022 Depression Screening 08/26/2022 HIV Screening 08/26/2022 Hepatitis C Screening 08/26/2022 Social Influencers of Health Screening 08/26/2022 Zoster Vaccines (1 of 2) 11/29/2023 COVID-19 Vaccine (3 - season) 2024 10/20/2021, 09/22/2021 Influenza Vaccine (#1) 2024 3, 06/28/2022, 11/20/2017, Additional history exists Hypertension/CHF/CAD Annual [...] patient's age to complete this topic Meningococcal B Vacine Aged Out No lo nger eligible based on patient's age to complete this topic RSV Immunization Patients Under 20 months Aged Out No longer eligible based on patient's age to complete this topic Varicella Vaccines Aged Out No longer eligible based on patient's age to complete this topic Procedures Procedure Name Priority Date/Time Associated Diagnosis Comments COMPREHENSIVE METABOLIC PANEL STAT 07/31/2024 3:11 AM EST from Last 3 Months or Most Recently Relevant to Health Maintenance Results * (ABNORMAL) Comprehensive metabolic panel (07/31/2024 3:11 AM EST) Sodium 140 133 - 145 mmol/L LAB CHEMISTRY METHOD 07/31/2024 3:41 AM [facility] Potassium 3.4(L) 3.5 - 5.5 mmol/L LAB CHEMISTRY METHOD 07/31/2024 3:41 AM [facility] Chloride 105 96 - 110 mmol/L LAB CHEMISTRY METHOD 07/31/2024 3:41 AM [facility] CO2 29 21 - 32 mmol/L LAB CHEMISTRY METHOD 07/31/2024 3:41 AM [facility] Anion Gap 6 3 - 11 LAB CHEMISTRY METHOD 07/31/2024 3:41 AM [facility] Glucose 163(H) 70 - 100 mg/dL LAB CHEMISTRY METHOD 07/31/2024 3:41 AM [facility] BUN 21 5 - 25 mg/dL LAB CHEMISTRY METHOD 07/31/2024 3:41 AM [facility] Creatinine 1.29(H) 0.50 - 1.10 mg/dL LAB CHEMISTRY METHOD 07/31/2024 3:41 AM [facility] eGFR 51(L) >=60 mL/min/1. 73m2 LAB CHEMISTRY METHOD 07/31/2024 3:41 AM [facility] Comment:Calculation based on the??Chronic Kidney Disease Epidemiology Collaboration (CKD-EPI) equation refit??without adjustment for race. BUN/Creatinine Ratio 16.3 LAB CHEMISTRY METHOD 07/31/2024 3:41 AM [facility] Calcium 9.2 8.5 - 10.5 mg/dL LAB CHEMISTRY METHOD 07/31/2024 3:41 AM [facility] AST (SGOT) 14 10 - 42 unit/L LAB CHEMISTRY METHOD 07/31/2024 3:41 AM [facility] ALT (SGPT) 19 10 - 60 unit/L LAB CHEMISTRY METHOD 07/31/2024 3:41 AM [facility] Alkaline Phosphatase 83 42 - 121 unit/L LAB CHEMISTRY METHOD 07/31/2024 3:41 AM [facility] Total Protein 7.2 6.0 - 8.0 g/dL LAB CHEMISTRY METHOD 07/31/2024 3:41 AM [facility] Albumin 3.4 3.2 - 5.0 g/dL LAB CHEMISTRY METHOD 07/31/2024 3:41 AM [facility] Total Bilirubin 0.5 0.0 - 1.4 mg/dL LAB CHEMISTRY METHOD 07/31/2024 3:41 AM [facility] Blood Venous blood specimen / Unknown Venipuncture / Unknown 07/31/2024 3:11 AM EST 07/31/2024 3:17 AM EST us Prashanth Garcia MD LAB BLOOD ORDERABLES Final Res ult [facility] [address] [place] [address], from Last 3 Months or Most Recently Relevant to Health Maintenance Care Teams Intelligence Research Specialist Relationship Specialty Start Date End Date Bee Ricks MD [address] [place] [address] PCP - General Internal Medicine 07/31/24
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
== END 2024-11-05 13:09 | disposition home or self-care (01) ==
LOC: HO.HUSH 11:14
PROVIDERS: PCP Internal Medicine; Visit Provider Urology
DX: N20.0 Calculus of kidney (principal)
CPT/HCPCS: 99214

== ENCOUNTER → 2024-11-05 11:14 | Outpatient (BNVA) | payer OTHER, SELFPAY | PROVIDERS: PCP Internal Medicine; Visit Provider Urology ==

== ENCOUNTER 2024-12-18 10:23 | Outpatient (REF) | payer OTHER, SELFPAY ==
--- NOTE | ~2024-12-18 | US_ITS ---
CLINICAL HISTORY: N20.0 - Calculus of kidney US Renal Comparison: None Findings: Right kidney normal size and echotexture, 10.0 cm length. Left kidney normal size and echotexture, 10.3 cm length. There is a right renal parenchymal 4 mm calculus. No hydronephrosis of either kidney. Normal color Doppler IMPRESSION: 1. No acute findings. This document has been electronically signed by: Dwain Villa MD on 12/19/2024 07:50:36
== END 2024-12-18 10:24 | disposition home or self-care (01) ==
LOC: HO.US 10:23
PROVIDERS: PCP Internal Medicine; Visit Provider Urology
DX: N20.0 Calculus of kidney (principal)
CPT/HCPCS: 76775

== ENCOUNTER → 2024-12-18 10:25 | Outpatient (BNV) | payer OTHER, SELFPAY | PROVIDERS: PCP Internal Medicine; Visit Provider Specialist | DX: N20.0 Calculus of kidney (principal) | CPT/HCPCS: 76775 ==

== ENCOUNTER 2025-01-08 07:17 | Outpatient (REF) | payer OTHER, SELFPAY ==
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
--- OUTSIDE RECORDS SUMMARY | 2025-01-08 07:19 | XMS_ITS | Clinical Summary ---
Author Organization [facility] Address [address] [place] [phone] Phone Care Team Providers Care Wood Heel Flap Trimmer Name Role Phone Bee Ricks MD Primary Care Provider [phone] Allergies Active Allergy Reactions Criticality Noted Date Comments Penicillins Unknown 07/31/2024 Medications No known medications Active Problems No known active problems Surgical History Surgery Date Site/Laterality Comments TUBAL LIGATION PROCEDURE: HISTORICAL TUBAL LIGATION Medical History Medical History Date Comments Essential (primary) hypertension DX:Essential (primary) hypertension Bipolar disorder (CMS/[facility] V2 4, CMS/HCC V28) DX:Bipolar disorder (HCC) Mild intermittent asthma, uncomplicated DX:Mild [...] - season) 2024 10/20/2021, 09/22/2021 Influenza Vaccine (Season Ended) 2025 07/01/2023, 06/28/2022, 11/20/2017, Additional history exists Hypertension/CHF/CAD Annual [...] age to complete this topic Meningococcal B Vaccine Aged Out No l onger eligible based on patient's age to complete [...] mmol/L LAB CHEMISTRY METHOD 07/31/2024 3:41 AM [facility] Potassium 3.4(L) 3.5 - 5.5 mmol/L LAB CHEMISTRY METHOD 07/31/2024 3:41 AM [facility] Chloride 105 96 - 110 mmol/L LAB CHEMISTRY METHOD 07/31/2024 3:41 AM [facility] CO2 29 21 - 32 mmol/L LAB CHEMISTRY METHOD 07/31/2024 3:41 AM [facility] Anion Gap 6 3 - 11 LAB CHEMISTRY METHOD 07/31/2024 3:41 AM [facility] Glucose 163(H) 70 - 100 mg/dL LAB CHEMISTRY METHOD 07/31/2024 3:41 AM [facility] BUN 21 5 - 25 mg/dL LAB CHEMISTRY METHOD 07/31/2024 3:41 AM [facility] Creatinine 1.29(H) 0.50 - 1.10 mg/dL LAB CHEMISTRY METHOD 07/31/2024 3:41 AM [facility] eGFR 51(L) >=60 mL/min/1. 73m2 LAB CHEMISTRY METHOD 07/31/2024 3:41 AM [facility] Comment:Calculation based on the??Chronic Kidney Disease Epidemiology Collaboration (CKD-EPI) equation refit??without adjustment for race. BUN/Creatinine Ratio 16.3 LAB CHEMISTRY METHOD 07/31/2024 3:41 AM [facility] Calcium 9.2 8.5 - 10.5 mg/dL LAB CHEMISTRY METHOD 07/31/2024 3:41 AM [facility] AST (SGOT) 14 10 - 42 unit/L LAB CHEMISTRY METHOD 07/31/2024 3:41 AM [facility] ALT (SGPT) 19 10 - 60 unit/L LAB CHEMISTRY METHOD 07/31/2024 3:41 AM [facility] Alkaline Phosphatase 83 42 - 121 unit/L LAB CHEMISTRY METHOD 07/31/2024 3:41 AM [facility] Total Protein 7.2 6.0 - 8.0 g/dL LAB CHEMISTRY METHOD 07/31/2024 3:41 AM [facility] Albumin 3.4 3.2 - 5.0 g/dL LAB CHEMISTRY METHOD 07/31/2024 3:41 AM [facility] Total Bilirubin 0.5 0.0 - 1.4 mg/dL LAB CHEMISTRY METHOD 07/31/2024 3:41 AM [facility] Blood Venous blood specimen / Unknown Venipuncture / Unknown 07/31/2024 3:11 AM EST 07/31/2024 3:17 AM EST us Prashanth Garcia MD LAB BLOOD ORDERABLES Final Res ult [facility] [address] [place] [address], from Last 3 Months or Most Recently Relevant to Health Maintenance Care Teams Wood Heel Flap Trimmer Relationship Specialty Start Date End Date Bee Ricks MD [address] [place] [address] PCP - General Internal Medicine 07/31/24
== END 2025-01-08 07:18 | disposition home or self-care (01) ==
LOC: HO.MAMMO 07:17
PROVIDERS: PCP Internal Medicine; Visit Provider Internal Medicine
DX: Z12.31 Encounter for screening mammogram for malignant neoplasm of breast (principal)
CPT/HCPCS: 77063; 77067

== ENCOUNTER → 2025-01-08 07:30 | Outpatient (BNV) | payer OTHER, SELFPAY | PROVIDERS: PCP Internal Medicine; Visit Provider Internal Medicine | DX: Z12.31 Encounter for screening mammogram for malignant neoplasm of breast (principal) | CPT/HCPCS: 77063; 77067 ==

== ENCOUNTER 2025-01-19 07:28 | Outpatient (AMB) | payer OTHER, SELFPAY ==
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
--- OUTSIDE RECORDS SUMMARY | 2025-01-19 07:31 | XMS_ITS | Clinical Summary ---
Author Organization [facility] Address [address] [place] [phone] Phone Care Team Providers Care Concrete Pouring Supervisor Name Role Phone Bee Ricks MD Primary Care Provider [phone] Allergies Active Allergy Reactions Criticality Noted Date Comments Penicillins Unknown 07/31/2024 Medications No known medications Active Problems No known active problems Surgical History Surgery Date Site/Laterality Comments TUBAL LIGATION PROCEDURE: HISTORICAL TUBAL LIGATION Medical History Medical History Date Comments Essential (primary) hypertension DX:Essential (primary) hypertension Bipolar disorder (CMS/HCC V2 4, CMS/HCC V28) DX:Bipolar disorder (HCC) [...] mmol/L LAB CHEMISTRY METHOD 07/31/2024 3:41 AM [facility] Potassium 3.4(L) 3.5 - 5.5 mmol/L LAB CHEMISTRY METHOD 07/31/2024 3:41 AM [facility] Chloride 105 96 - 110 mmol/L LAB CHEMISTRY METHOD 07/31/2024 3:41 AM [facility] CO2 29 21 - 32 mmol/L LAB CHEMISTRY METHOD 07/31/2024 3:41 AM [facility] Anion Gap 6 3 - 11 LAB CHEMISTRY METHOD 07/31/2024 3:41 AM [facility] Glucose 163(H) 70 - 100 mg/dL LAB CHEMISTRY METHOD 07/31/2024 3:41 AM [facility] BUN 21 5 - 25 mg/dL LAB CHEMISTRY METHOD 07/31/2024 3:41 AM [facility] Creatinine 1.29(H) 0.50 - 1.10 mg/dL LAB CHEMISTRY METHOD 07/31/2024 3:41 AM [facility] eGFR 51(L) >=60 mL/min/1. 73m2 LAB CHEMISTRY METHOD 07/31/2024 3:41 AM [facility] Comment:Calculation based on the??Chronic Kidney Disease Epidemiology Collaboration (CKD-EPI) equation refit??without adjustment for race. BUN/Creatinine Ratio 16.3 LAB CHEMISTRY METHOD 07/31/2024 3:41 AM [facility] Calcium 9.2 8.5 - 10.5 mg/dL LAB CHEMISTRY METHOD 07/31/2024 3:41 AM [facility] AST (SGOT) 14 10 - 42 unit/L LAB CHEMISTRY METHOD 07/31/2024 3:41 AM [facility] ALT (SGPT) 19 10 - 60 unit/L LAB CHEMISTRY METHOD 07/31/2024 3:41 AM [facility] Alkaline Phosphatase 83 42 - 121 unit/L LAB CHEMISTRY METHOD 07/31/2024 3:41 AM [facility] Total Protein 7.2 6.0 - 8.0 g/dL LAB CHEMISTRY METHOD 07/31/2024 3:41 AM [facility] Albumin 3.4 3.2 - 5.0 g/dL LAB CHEMISTRY METHOD 07/31/2024 3:41 AM [facility] Total Bilirubin 0.5 0.0 - 1.4 mg/dL LAB CHEMISTRY METHOD 07/31/2024 3:41 AM [facility] Blood Venous blood specimen / Unknown Venipuncture / Unknown 07/31/2024 3:11 AM EST 07/31/2024 3:17 AM EST us Prashanth Garcia MD LAB BLOOD ORDERABLES Final Res ult [facility] [address] [place] [address], from Last 3 Months or Most Recently Relevant to Health Maintenance Care Teams Concrete Pouring Supervisor Relationship Specialty Start Date End Date Bee Ricks MD [address] [place] [address] PCP - General Internal Medicine 07/31/24
--- NOTE | 2025-01-19 07:45 | A.OFFPC_ITS ---
Vital Signs 01/19/25 07:46 Height 5 ft 3 in Weight 201 lb BMI 35.6 BP 118/82 Blood Pressure Location Lt brachial Position Sitting Intake Visit Reasons: physical exam Intake Note: Patient here for a physical exam Head Of Human Resources Required: No Accompanied by: Self / Same As Patient Allergies Penicillins [PENICILLINS] Allergy (Severe, Verified 01/19/25 07:52) rash shellfish derived Allergy (Severe, Verified 01/19/25 07:52) Swelling Medication List - Last Reconciled 01/19/25 by Bee Ricks MD albuterol sulfate 2.5 mg (3 mL) inhalation Q4-6H PRN albuterol sulfate 90 mcg/actuation (Ventolin HFA) 2 puffs inhalation Q6H PRN blood pressure monitor As directed bupropion HCl XL 300 mg PO QAM 90 days cetirizine 10 mg PO DAILY 90 days cholecalciferol (vitamin D3) 25 mcg PO DAILY 90 days hydrochlorothiazide 25 mg PO DAILY 90 days lisinopril 5 mg PO DAILY 90 days magnesium oxide 400 mg PO BEDTIME 30 days miscellaneous medical supply 1 ea miscellaneous DAILY sumatriptan succinate 50 - 100 mg orally at onset of headache, may repeat in 2 hrs PRN; max 2 tabs per day or 4 tabs/week (may take with Ibuprofen) 30 days topiramate 25 mg PO BEDTIME 90 days Tobacco use date assessed: 09/25/24 Dental Screening Dental Screen Date: 01/19/25 Did you have a dental visit in the last 12 months?: No Did you have a dental problem in the last 6 months where you did not have access to dental care?: No Was dental information given to patient?: Patient has dentist HPI HPI Comments History of Present Illness Details The patient is a 49-year-old female presenting for her annual physical examination and management of chronic conditions, with a focus on recently developed gastrointestinal symptoms suspected to be related to Irritable Bowel Syndrome. She has implemented significant dietary changes resulting in a 15- pound weight loss, which has been associated with either diarrhea or constipation after meals. These changes coincide with her recent focus on pre- diabetes management and weight loss. She is currently managing her hypertension with prescribed medications, and her depression with bupropion, which she notes also aids in weight management. Her history of an allergic reaction to penicillin (rash) and shellfish (swelling) is noted, alongside her usage of cetirizine for allergies and sumatriptan for migraines as needed. Her lifestyle choices include no history of smoking, moderated alcohol consumption, and an awareness of her familial risk factors for diabetes and hypertension, as her mother had these conditions, and her father had liver disease. Previous labs in September showed elevated cholesterol and blood glucose which the patient believes may have improved after her weight loss. Screening measures, including a colonoscopy, have been performed, with normal results recorded and a follow-up planned for 2025. She is up to date on her gynecological follow-ups as well. - Tetanus vaccination: last received in 2017, due again in 2027. - Colonoscopy: completed in 2022 with no rmal results; follow-up scheduled for 2032. - Monitoring and follow-up planned for c holesterol and blood glucose levels due to recent improvements in weight and lifestyle changes. - Encouraged regular follow-up for pre-d iabetes status in light of recent weight loss. - Continued use of medications as prescr ibed for hypertension, depression, bipolar disorder and the management of migraines and allergies. [facility] Medical History Class 2 obesity with body mass index (BMI) of 36.0 to 36.9 in adult Moderate recurrent major depression Hypertension Hypovitaminosis D Fatigue Chronic diarrhea Asthma Depression Surgical History Hx of colonoscopy H/O lithotripsy History of tubal ligation Family History Father Liver disease Alcohol abuse Mother Diabetes Depression Hypertension Psoriasis Family/Other FH: mental illness Brother Heroin abuse Sister Anemia Hypertension Social History Housing: Apartment Are you a primary personal care assistant to a significant other at home: No Do you presently have visiting nurse or other home services: No Alcohol intake: current Alcohol intake frequency: holidays/special occasions only Alcohol type: wine Patient Tobacco Use Status: Never used Tobacco e-Cigarette/Vaping Use: Never Used Second Hand Smoke Exposure: No Substance Use Type: Marijuana service: No Current occupational status: employed 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 [employer] Current occupational exposures/hazards: No Sexual orientation: Straight/Heterosexual Gender identity: Female Cognitive needs: No Hearing needs: No Vision needs: No Female Reproductive History Menstrual Age of Menarche: 10 Questionnaire Thrive Questionnaire Date Thrive assessed: 01/12/25 I am a: Patient What is your living situation today?: I have a steady place to live Within the past 12 months, did the food you bought not last and you didn't have the money to get more?: I choose not to answer this question Within the past 12 months, did you worry whether your food would run out before you got money to buy more?: I choose not to answer this question Do you have trouble paying for medicines?: No Do you have trouble getting transportation to medical appointments?: No Do you have trouble paying your heating and electricity bill?: I choose not to answer this question Do you have trouble taking care of your child, family member or friend?: No Do you have trouble with day-to-day activities such as bathing, preparing meals, shopping, managing finances, etc.?: No Are you currently unemployed and looking for a job?: No Are you interested in more education?: No Please select the resources that you would like help with: None Currently or been in a relationship where the following occur: I choose not to answer THRIVE Score: 0 AUDIT C Alcohol Use Questionnaire (AUDIT-C) 1. How often do you have a drink containing alcohol?: Never Total Score: 0 Score Reviewed/Action Taken: No BALTA-7 AMB Questionnaire BALTA-7 Date BALTA - 7 assessed: 09/25/24 Feeling nervous, anxious, or on edge: 3 = Nearly every day Not being able to stop or control worryin = More than half the days Worrying too much about different things: 2 = More than half the days Trouble relaxin = More than half the days Being so restless that it is hard to sit still: 2 = More than half the days Becoming easily annoyed or irritable: 2 = More than half the days Feeling afraid as if something awful might happen: 0 = Not at all Total BALTA-7 score (0-4 normal; 5-9 mild; 10-14 moderate; 15-21 severe): 13 Source: Developed by Drs. Darrel Minaya, Cynthia B.Rojas Matson and colleagues, with an educational jayleen from [employer]. BALTA-7 Assessment Billing BALTA-7 Assessment Tool: BALTA-7 Assessment 11028 Review of Systems Const All systems reviewed & are unremarkable except as noted in HPI and below Card Denies chest pain at rest, Denies chest pain with activity, Denies edema, Denies irregular heart rhythm, Denies claudication, Denies dyspnea, Denies dyspnea on exertion, Denies orthopnea, Denies paroxysmal nocturnal dyspnea and Denies slow heart rate Resp Denies cough, Denies dyspnea and Denies dyspnea on exertion GI Denies abdominal pain, Denies change in bowel habits, Denies excessive flatus, Denies nausea and Denies vomiting Denies urinary incontinence, Denies urinary hesitancy and Denies urinary urgency Musc Denies atrophy, Denies deformity and Denies limited range of motion Physical exam (Primary Care) Vital Signs: Last Vital Signs BP 118/82 01/19/25 07:46 BMI result Body Mass Index 35.6 Tobacco/Smoking Status: Tobacco use Status Tobacco use date assessed 09/25/24 01/19/25 07:52 Patient Tobacco Use Status Never used Tobacco 01/19/25 07:52 e-Cigarette/Vaping Use Never Used 01/19/25 07:52 Thrive Assessment: Date of Thrive Assessment Date Thrive assessed 01/12/25 01/19/25 07:52 Currently or been in a relationship where the following occur: I choose not to answer [facility] Head: Yes normal to inspection, Yes normocephalic and Yes atraumatic Ears: external ears normal Eyes General: appearance normal, both eyes and all related structures Eyelids: Yes eyelids normal Conjunctivae: conjunctivae normal Neck Neck: Yes normal visual inspection and Yes supple Resp Effort & Inspection: normal respiratory effort Auscultation: clear to auscultation bilaterally Cardio Jugular venous distension: no JVD Rate: regular rate Rhythm: regular rhythm Heart sounds: S1 normal heart sound present and S2 normal heart sound present GI Inspection: Yes normal to inspection Palpation (GI): Soft to palpation and nontender Auscultation: normal bowel sounds Skin General skin exam: no rashes or lesions noted Neuro General: no focal motor deficits Extrem General: Yes full ROM Psych Appearance: grossly normal Coding Level of Care Code Est Pt Prev Care 40-64y(22005) Diagnoses Physical exam Z00.00 Moderate recurrent major depression F33.1 Bipolar disorder F31.9 Additional Codes BALTA-7 Assessment Billing - BALTA-7 Assessment Tool: BALTA-7 Assessment 23555 ([id number]) Time Spent (min) 31 Assessment & Plan Assessment & Plan (1) Physical exam: Code(s): Z00.00 - Encounter for general adult medical examination without abnormal findings Category: Medical (2) Moderate recurrent major depression: Code(s): F33.1 - Major depressive disorder, recurrent, moderate Category: Medical (3) Bipolar disorder: Code(s): F31.9 - Bipolar disorder, unspecified Category: Medical Plan Her approach to migraines and allergies, through sumatriptan and cetirizine, respectively, is appropriate and should be maintained as needed. Do additional views for mammogram. Patient was informed and verbally consented to the use of an ambient scribe for clinic note documentation during this visit. I discussed with the patient the likely diagnosis of Irritable Bowel Syndrome related to sudden dietary changes and weight loss. We agreed on a plan to balance her diet and monitor her response to magnesium intake concerning her gastrointestinal symptoms. I outlined the rationale and benefits of current medications for hypertension and depression, emphasizing the need to monitor the reduction in weight's impact on blood glucose and lipid levels. We planned repeat lab evaluations in four months and emphasized the importance of maintaining her current lifestyle changes. The patient was encouraged to continue her use of sumatriptan for migraines and cetirizine for allergies, with an understanding of when to withhold these based on symptomatology. Patient Instructions: - Balance your diet to help manage IBS symptoms and monitor your reaction to magnesium. - Hold magnesium intake if experiencing diarrhea. - Prepare for labs in four months to check blood sugar and cholesterol. - Keep taking your prescribed medications as instructed, including antihypertensives and bupropion. - Continue using sumatriptan for migraines and cetirizine for allergies as needed. - Maintain or build on current lifestyle changes to improve health outcomes.
[2025-01-19 07:46] VITALS: BP 118/82; BMI 35.6
== END 2025-01-19 10:50 | disposition home or self-care (01) ==
PROVIDERS: PCP Internal Medicine; Visit Provider Internal Medicine
DX: Z00.00 Encounter for general adult medical examination without abnormal findings (principal); F31.9 Bipolar disorder, unspecified

== ENCOUNTER → 2025-01-19 07:28 | Outpatient (BNVA) | payer OTHER, SELFPAY | PROVIDERS: PCP Internal Medicine; Visit Provider Internal Medicine | DX: Z00.00 Encounter for general adult medical examination without abnormal findings (principal); F33.1 Major depressive disorder, recurrent, moderate; F31.9 Bipolar disorder, unspecified | CPT/HCPCS: 96127; 99396 ==

== ENCOUNTER 2025-04-01 13:22 | Outpatient (REF) | payer OTHER, SELFPAY ==
--- NOTE | ~2025-04-01 | XR_ITS ---
CLINICAL HISTORY: N20.0 - Calculus of kidney 1 view abdomen Comparison: None provided Findings: No pneumoperitoneum or pneumatosis. Moderate fecal retention within the proximal colon. No abnormal calcifications. No acute fractures. IMPRESSION: No evidence of renal or ureteral calculus. This document has been electronically signed by: Coby Chandler MD on 04/02/2025 14:40:02
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
--- OUTSIDE RECORDS SUMMARY | 2025-04-01 13:26 | XMS_ITS | Clinical Summary ---
Author Organization [facility] Address [address] [place] [address] Phone Care Team Providers Care Senior Associate Name Role Phone Bee Ricks MD Primary Care Provider [phone] Allergies Active Allergy Reactions Criticality Noted Date Comments Penicillins Unknown 07/31/2024 Medications No known medications Active Problems No known active problems Encounters Date Type Department Care Team Description 02/17/2025 5:56 AM EDT - 02/17/2025 7:30 AM EDT Emergency [facility] Emergency [address] [place] [address] Acute cough (Primary Dx) Discharge Disposition: Home or Self [...] Sign Reading Time Taken Comments Blood Pressure 127/83 02/17/2025 5:15 AM EDT Pulse 90 02/17/2025 5:15 AM EDT Temperature 36.9 C (98.4 F) 02/17/2025 5:15 AM EDT Respiratory Rate 20 02/17/2025 5:15 AM EDT Oxygen Saturation 98% 02/17/2025 5:15 AM EDT Inhaled Oxygen Concentration - - Weight 90.7 kg (200 lb) 02/17/2025 5:15 AM EDT Height 160 cm (5' 3 ) 02/17/2025 5:15 AM EDT Body Mass Index 35.43 02/17/2025 5:15 AM EDT Plan of Treatment Health Maintenance Due Date Last Done Comments Pneumococcal Vaccine: 50+ Years (1 of 2 - PCV) 1992 Pneumococcal Vaccine: Pediatrics (0 to 5 Years) and At-Risk Patients (6 to 49 Years) (1 of 2 - PCV) 1992 [...] (1 of 2) 11/29/2023 COVID-19 Vaccine ( season) 2024 10/20/2021, 09/22/2021 Influenza Vaccine (#1) 2025 3, 06/28/2022, 11/20/2017, Additional history exists Hypertension/CHF/CAD [...] Procedure Name Priority Date/Time Associated Diagnosis Comments XR CHEST 2 VIEWS STAT 02/17/2025 6:01 AM EDT [id number], RSV, FLU A AND B QUALITATIVE RT-PCR, INTERNAL LAB STAT 02/17/2025 5:21 AM EDT COMPREHENSIVE METABOLIC PANEL STAT 07/31/2024 3:11 AM EST from Last 3 Months or Most Recently Relevant to Health Maintenance Results * XR Chest 2 Views (02/17/2025 6:01 AM EDT) Anatomical Region Laterality Modality Body Radiographic Love ging 02/17/2025 8:29 AM EDT Impressions 02/17/2025 8:30 AM EDT No evidence of active pulmonary disease. No significant change from the prior study. [id number] -------- FINAL REPORT -------- Dictated By: Anaya Cullen Dictated Date: 02/17/2025 08:29 ET Assigned Physician: Anaya Cullen Reviewed and Electronically Signed By: Anaya Cullen Signed Date: 02/17/2025 08:30 ET Workstation ID: [id number] Transcribed By: Self Edit Transcribed Date: 02/17/2025 08:29 ET Narrative 02/17/2025 8:30 AM EDT INDICATION: Cough FINDINGS: Two views of the chest were obtained. Compared to multiple prior studies most recent from December 30, 2020. Lung angeles are clear. Cardiomediastinal silhouette is normal in size and shape. Bony structures are within normal limits for the patient's age. Procedure Note Anaya Cullen MD - 02/17/2025 INDICATION: Cough FINDINGS: Two views of the chest were obtained. Compared to multiple priorstudies most recent from December 30, 2020. Lung angeles are clear. Cardiomediastinal silhouette is normal in size and shape. Bony structures are within normal limits for the patient's age. IMPRESSION: No evidence of active pulmonary disease. No significant change from theprior study. [id number] -------- FINAL REPORT -------- Dictated By: Anaya Cullen Dictated Date: 02/17/2025 08:29 ET Assigned Physician: Anaya Cullen Reviewed and Electronically Signed By: Anaya Cullen Signed Date: 02/17/2025 08:30 ET Workstation ID: [id number] Transcribed By: Self Edit Transcribed Date: 02/17/2025 08:29 ET us Kiko Ralph DO IMG XR PROCEDURES Final Res ult * [id number], RSV, Influenza A and B qualitative RT-PCR (02/17/2025 5:21 AM EDT) Influenza A PCR Not Detected Not Detected LAB MICROBIOLOGY METHOD 02/17/2025 6:29 AM EDT [facility] Influenza B PCR Not Detected Not Detected LAB MICROBIOLOGY METHOD 02/17/2025 6:29 AM EDT [facility] RSV PCR Not Detected Not Detected LAB MICROBIOLOGY METHOD 02/17/2025 6:29 AM EDT [facility] SARS COV-2 Not Detected Not Detected LAB MICROBIOLOGY METHOD 02/17/2025 6:29 AM EDT [facility] Swab Both anterior nares / Unknown Non-blood Collection / Unknown 02/17/2025 5:21 AM EDT 02/17/2025 5:44 AM EDT Narrative [facility] - 02/17/2025 6:29 AM EDT Disclaimer: Testing was performed using the [employer] GeneXpert Xpress SARS-CoV-2 _Flu_RSV PLUS PCR assay. The manner in which this information is used to guide patient care is the responsibility of the healthcare provider. Results should be correlated with the clinical history, epidemiological data, and other data available to the clinician evaluating the patient. Negative results do not preclude infection. This test has been authorized by the FDA under an Emergency Use Authorization (EUA). This test is only authorized for the duration of time the declaration that circumstances exist justifying the authorization of the emergency use of in vitro diagnostic tests for detection of SARS-CoV-2 virus and/or diagnosis of COVID-19 infection under section 564 (b) (1) of the Act, 21 U.S.C 360bbb-3 (b) (1), unless the authorization is terminated or revoked sooner. Reference Range: Not Detected Fact sheet for Healthcare providers can be found at https://www.fda.gov/media/136807/download. Fact sheet for Healthcare patients can be found at https://www.fda.gov/media/306083/download. Kiko Ralph DO LAB MICROBIOLOGY - GENERAL ORDERABLES Final Result [facility] [address] [place] [address], * (ABNORMAL) Comprehensive metabolic panel (07/31/2024 3:11 AM EST) Sodium 140 133 - 145 mmol/L LAB CHEMISTRY METHOD 07/31/2024 3:41 AM EST [facility] Potassium 3.4(L) 3.5 - 5.5 mmol/L LAB CHEMISTRY METHOD 07/31/2024 3:41 AM EST [facility] Chloride 105 96 - 110 mmol/L LAB CHEMISTRY METHOD 07/31/2024 3:41 AM EST [facility] CO2 29 21 - 32 mmol/L LAB CHEMISTRY METHOD 07/31/2024 3:41 AM EST [facility] Anion Gap 6 3 - 11 LAB CHEMISTRY METHOD 07/31/2024 3:41 AM EST [facility] Glucose 163(H) 70 - 100 mg/dL LAB CHEMISTRY METHOD 07/31/2024 3:41 AM [facility] BUN 21 5 - 25 mg/dL LAB CHEMISTRY METHOD 07/31/2024 3:41 AM [facility] Creatinine 1.29(H) 0.50 - 1.10 mg/dL LAB CHEMISTRY METHOD 07/31/2024 3:41 AM [facility] eGFR 51(L) >=60 mL/min/1. 73m2 LAB CHEMISTRY METHOD 07/31/2024 3:41 AM [facility] Comment:Calculation based on the Chronic Kidney Disease Epidemiology Collaboration (CKD-EPI) equation refit without adjustment for race. BUN/Creatinine Ratio 16.3 LAB CHEMISTRY METHOD 07/31/2024 3:41 AM [facility] Calcium 9.2 8.5 - 10.5 mg/dL LAB CHEMISTRY METHOD 07/31/2024 3:41 AM [facility] AST (SGOT) 14 10 - 42 unit/L LAB CHEMISTRY METHOD 07/31/2024 3:41 AM [facility] ALT (SGPT) 19 10 - 60 unit/L LAB CHEMISTRY METHOD 07/31/2024 3:41 AM [facility] Alkaline Phosphatase 83 42 - 121 unit/L LAB CHEMISTRY METHOD 07/31/2024 3:41 AM [facility] Total Protein 7.2 6.0 - 8.0 g/dL LAB CHEMISTRY METHOD 07/31/2024 3:41 AM [facility] Albumin 3.4 3.2 - 5.0 g/dL LAB CHEMISTRY METHOD 07/31/2024 3:41 AM [facility] Total Bilirubin 0.5 0.0 - 1.4 mg/dL LAB CHEMISTRY METHOD 07/31/2024 3:41 AM [facility] Blood Venous blood specimen / Unknown Venipuncture / Unknown 07/31/2024 3:11 AM EST 07/31/2024 3:17 AM EST us Prashanth Garcia MD LAB BLOOD ORDERABLES Final Res ult [facility] [address] [place] [address], [place] [phone] from Last 3 Months or Most Recently Relevant to Health Maintenance Insurance MEDICAID - [place] [facility] [employer] Care Teams Senior Associate Relationship Specialty Start Date End Date Bee Ricks MD [address] [place] [address] PCP - General Internal Medicine 07/31/24
[2025-04-01 14:59] LABS: Appearance Urine Clear; Glucose Urine UA Negative (Negative); PH 6.0 (5.0-9.0); Specific Gravity - Urine 1.015 (1.005-1.025); UMIC TRIGGER UACC YES
[2025-04-01 15:18] LABS: UACC Culture Trigger YES
== END 2025-04-01 13:23 | disposition home or self-care (01) ==
LOC: HO.XRAY 13:22
PROVIDERS: PCP Internal Medicine; Visit Provider Internal Medicine
DX: R39.9 Unspecified symptoms and signs involving the genitourinary system (principal); R30.0 Dysuria; Z87.442 Personal history of urinary calculi
CPT/HCPCS: 74018; 81001; 81003; 87086

== ENCOUNTER → 2025-04-01 13:39 | Outpatient (BNV) | payer OTHER, SELFPAY | PROVIDERS: PCP Internal Medicine; Visit Provider Radiology Diagnostic Radiology | DX: N20.0 Calculus of kidney (principal) | CPT/HCPCS: 74018 ==

== ENCOUNTER 2025-04-26 12:22 | Outpatient (REF) | payer OTHER, SELFPAY ==
--- NOTE | ~2025-04-26 | US_ITS ---
EXAMINATIONS: 1. MM DIAGNOSTIC DIGITAL BREAST TOMOSYNTHESIS, BILATERAL 2. Targeted ultrasound of the right breast 3. Targeted ultrasound of the left breast CLINICAL INFORMATION: Callback for bilateral findings as follows: Right: Asymmetry in the superior breast middle depth on the MLO view Left: Asymmetry in the superior breast middle depth on the MLO view COMPARISON: Comparison made to multiple prior, most recent mammogram on January 08, 2025, and most remote April 30, 2022. TECHNIQUE: Digital breast tomosynthesis is performed in both the craniocaudal and mediolateral oblique views along with computer-aided detection (CAD). Synthesized 2D images are generated from the tomosynthesis. FINDINGS: BREAST COMPOSITION: There are scattered areas of fibroglandular density (ACR BI-RADS breast composition Category b). RIGHT BREAST: Previously described asymmetry in the upper breast at about 11 cm from the nipple on the MLO view is pliable with spot compression. Tentatively identified correlate located in the lateral breast on the CC view. Targeted ultrasound of the right breast was performed at the location of the mammographic finding. The survey was performed along the central lateral breast extending from 8:00 to 10:00 axis. Incidentally identified 0.5 x 0.2 x 0.2 cm cyst at 9 o'clock position at 10 cm from the nipple does not appear to correlate with the mammographic finding. No suspicious sonographic finding was seen during the survey. LEFT BREAST: Previously described asymmetry in the upper breast on the MLO view at approximately 9 cm from the nipple is pliable with spot compression. Tentatively identified correlate is located in the lateral breast on the CC view. Targeted ultrasound of the left breast was performed at the location of the mammographic finding. The survey was performed at the central lateral breast extending from 2:00-4:00 axis. This survey shows a 0.9 x 0.6 x 0.8 cm structure that appears to represent cluster of cysts at 3 o'clock position of 8 cm from the nipple. No abnormal vascularity demonstrated with color Doppler evaluation. US/US breast BI limited mamm only IMPRESSION: RIGHT BREAST: Asymmetry in the upper breast at about 11 cm from the nipple on the MLO view without definite suspicious sonographic correlate. Probably benign. A 6-month follow-up mammogram is recommended. LEFT BREAST: Focal asymmetry in the lateral breast middle depth at approximately 3 o'clock position, probably correlating with cluster of cysts at 3 o'clock position at 8 cm from the nipple. Probably benign. A 6-month follow-up mammogram and ultrasound is recommended. ASSESSMENT: BI-RADS 3 - Probably benign finding(s) - 6 month follow-up suggested RECOMMENDATION: 6 Month F/U Results were provided to the patient at time of visit by the technologist. This patient's information was entered into a reminder system with a target due date for their next mammogram. Electronically signed by: Avis Callahan MD 04/26/2025 03:01 PM EDT
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
--- OUTSIDE RECORDS SUMMARY | 2025-04-26 12:54 | XMS_ITS | Clinical Summary ---
Author Organization [facility] Address [address] [place] [address] Phone Care Team Providers Care Circulation Tender Name Role Phone Bee Ricks MD Primary Care Provider [phone] Allergies Active Allergy Reactions Criticality Noted Date Comments Penicillins Unknown 07/31/2024 Medications No known medications Active Problems No known active problems Encounters Date Type Department Care Team Description 02/17/2025 5:56 AM EDT - 02/17/2025 7:[address] [facility] Emergency [address] [place] [address] Acute cough (Primary Dx) Discharge [...] Years (1 of 2 - PCV) 1992 Cervical Cancer Screening: Pap Smear 1994 Hepatitis B Vaccines (3 of 3 - 19+ 3-dose series) 04/09/2017 12/07/2016, 10/10/2016 Breast Cancer Screening 02/28/2018 02/29/2016 Cholesterol Screening (Lipid Panel) 08/26/2022 Colorectal Cancer Screening: Colonoscopy 08/26/2022 HIV Screening 08/26/2022 Hepatitis C Screening 08/26/2022 Social Influencers of Health Screening 08/26/2022 Zoster Vaccines (1 of 2) 11/29/2023 COVID-19 Vaccine ( - season) 2024 10/20/2021, 09/22/2021 Depression Screening 09/23/2024 Influenza Vaccine (#1) 2025 , 06/28/2022, 11/20/2017, Additional history exists Hypertension/CHF/CAD [...] 2 VIEWS STAT 02/17/2025 6:01 AM EDT [id number], RSV, FLU A AND B QUALITATIVE RT-PCR, [...] No significant change from the prior study. [id number] -------- FINAL REPORT -------- Dictated By: Anaya Cullen Dictated Date: 02/17/2025 08:29 ET Assigned Physician: Anaya Cullen Reviewed and Electronically Signed By: Anaya Cullen Signed Date: 02/17/2025 08:30 ET Workstation ID: [id number] Transcribed By: Self Edit Transcribed Date: 02/17/2025 [...] disease. No significant change from theprior study. [id number] -------- FINAL REPORT -------- Dictated By: Anaya Cullen Dictated Date: 02/17/2025 08:29 ET Assigned Physician: Anaya Cullen Reviewed and Electronically Signed By: Anaya Cullen Signed Date: 02/17/2025 08:30 ET Workstation ID: [id number] Transcribed By: Self Edit Transcribed Date: 02/17/2025 08:29 ET Kiko Ralph DO IMG XR PROCEDURES Final Res ult * [id number], RSV, Influenza A and B qualitative RT-PCR (02/17/2025 5:21 AM EDT) Influenza A PCR Not Detected Not Detected LAB MICROBIOLOGY METHOD 02/17/2025 6:29 AM EDT [facility] Influenza B PCR Not Detected Not Detected LAB MICROBIOLOGY METHOD 02/17/2025 6:29 AM EDT [facility] RSV PCR Not Detected Not Detected LAB MICROBIOLOGY METHOD 02/17/2025 6:29 AM EDT [facility] SARS COV-2 Not Detected Not Detected LAB MICROBIOLOGY METHOD 02/17/2025 6:29 AM EDT [facility] Swab Both anterior nares / Unknown Non-blood Collection / Unknown 02/17/2025 5:21 AM EDT 02/17/2025 5:44 AM EDT Narrative [facility] - 02/17/2025 6:29 AM EDT Disclaimer: Testing was performed using the [employer] GeneXpert Xpress SARS-CoV-2 _Flu_RSV PLUS PCR assay. [...] for Healthcare providers can be found at https://www.fda.gov/media/974507/download. Fact sheet for Healthcare patients can be found at https://www.fda.gov/media/351526/download. Kiko Raplh DO LAB MICROBIOLOGY - GENERAL ORDERABLES Final Result [facility] [address] [place] [address], * (ABNORMAL) Comprehensive metabolic panel (07/31/2024 3:11 [...] [facility] Comment:Calculation based on the Chronic Kidney [...] EST Prashanth Garcia MD LAB BLOOD ORDERABLES Final Res ult [facility] [address] [place] [address], from Last 3 Months or Most Recently Relevant to Health Maintenance Insurance MEDICAID - [place] [facility] [employer] Care Teams Circulation Tender Relationship Specialty Start Date End Date Bee Ricks MD [address] [place] [address] PCP - General Internal Medicine 07/31/24
== END 2025-04-26 12:23 | disposition home or self-care (01) ==
LOC: HO.MAMMO 12:22
PROVIDERS: PCP Internal Medicine; Visit Provider Internal Medicine
DX: N64.89 Other specified disorders of breast (principal)
CPT/HCPCS: 76642; 77062; 77066

== ENCOUNTER → 2025-04-26 13:00 | Outpatient (BNV) | payer OTHER, SELFPAY | PROVIDERS: PCP Internal Medicine; Visit Provider Radiology Body Imaging | DX: R92.8 Other abnormal and inconclusive findings on diagnostic imaging of breast (principal) | CPT/HCPCS: 76642; 77062; 77066 ==

== ENCOUNTER 2025-06-03 12:44 | Outpatient (AMB) | payer OTHER, SELFPAY ==
[2025-06-03 13:15] VITALS: BP 122/62; BMI 35.6
--- NOTE | 2025-06-03 13:15 | A.OFFPC_ITS ---
Vital Signs 06/03/25 13:15 Height 5 ft 3 in Weight 201 lb BMI 35.6 BP 122/62 Blood Pressure Location Lt brachial Position Sitting Pulse Source Pulse Oximeter Intake Visit Reasons: bp,glucose Olive Pitter Required: No Accompanied by: Self / Same As Patient Allergies Penicillins (PENICILLINS) Allergy (Severe, Verified 06/03/25 13:45) rash shellfish derived Allergy (Severe, Verified 06/03/25 13:45) Swelling Medication List - Last Reconciled 06/03/25 by Bee Rciks MD albuterol sulfate 2.5 mg (3 mL) inhalation Q4-6H PRN albuterol sulfate 90 mcg/actuation (Ventolin HFA) 2 puffs inhalation Q6H PRN blood pressure monitor As directed bupropion HCl XL 300 mg PO QAM 90 days cetirizine 10 mg PO DAILY 90 days cholecalciferol (vitamin D3) 25 mcg PO DAILY 90 days hydrochlorothiazide 25 mg PO DAILY 90 days lisinopril 5 mg PO DAILY 90 days magnesium oxide 400 mg PO BEDTIME 30 days miscellaneous medical supply 1 ea miscellaneous DAILY nebulizers (AeroEclipse II Nebulizer) As directed sumatriptan succinate 50 - 100 mg orally at onset of headache, may repeat in 2 hrs PRN; max 2 tabs per day or 4 tabs/week (may take with Ibuprofen) 30 days topiramate 25 mg PO BEDTIME 90 days Tobacco use date assessed: 06/03/25 Dental Screening Dental Screen Date: 06/03/25 Did you have a dental visit in the last 12 months?: No Did you have a dental problem in the last 6 months where you did not have access to dental care?: No Was dental information given to patient?: No HPI HPI Comments History of Present Illness Details This is a 49-year-old female with hypertension, migraines, hypovitaminosis D, mild recurrent major depression and bipolar disorder that comes today for follow-up on her conditions. Blood pressure has been stable. Migraines well controlled with Topamax as migraine prophylaxis and use sumatriptan as needed for acute migraine attacks. On vitamin-D supplements for low vitamin-D. Depression has improved with bupropion and bipolar disorder has been stable. She is obese with a BMI of 35.6 and has been trying to do diet and exercise since September of this year. She has been doing well and I think she will benefit from GLP 1 agonist. Her blood sugar has also improved. [facility] Medical History (Updated 06/03/25 @ 13:52 by Bee Ricks MD) Class 2 obesity with body mass index (BMI) of 36.0 to 36.9 in adult Moderate recurrent major depression Hypertension Hypovitaminosis D Fatigue Chronic diarrhea Asthma Depression Surgical History Hx of colonoscopy H/O lithotripsy History of tubal ligation Family History Father Liver disease Alcohol abuse Mother Diabetes Depression Hypertension Psoriasis Family/Other FH: mental illness Brother Heroin abuse Sister Anemia Hypertension Social History Housing: Apartment Are you a primary daycare provider to a significant other at home: No Do you presently have visiting nurse or other home services: No Alcohol intake: current Alcohol intake frequency: holidays/special occasions only Alcohol type: wine Patient Tobacco Use Status: Never used Tobacco e-Cigarette/Vaping Use: Never Used Second Hand Smoke Exposure: No Substance Use Type: Marijuana service: No Current occupational status: employed 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 1. Little interest or pleasure in doing things: more than half the days 2. Feeling down, depressed, or hopeless: several days 3. Trouble falling or staying asleep, or sleeping too much: nearly every day 4. Feeling tired or having little energy: several days 5. Poor appetite or overeating: nearly every day 6. Feeling bad about yourself - or that you are a failure or have let yourself or your family down: not at all 7. Trouble concentrating on things, such as reading the newspaper or watching television: several days 8. Moving or speaking so slowly that other people could have noticed. Or the opposite - being so fidgety or restless that you have been moving around a lot more than usual: not at all 9. Thoughts that you would be better off or of hurting yourself in some way: not at all Total score: 11 Depression Screening Interpretation: Positive Depression Screening Follow-up: Existing condition, In treatment and Follow-up Visit Requested Depression Screening Done: Yes 53544 - PHQ-9 Billing: Yes Source: Developed by Drs. Darrel Minaya, Cynthia Veras, Rojas Syed and colleagues, with an educational jayleen from [employer]. Thrive Questionnaire Date Thrive assessed: 01/12/25 I am a: Patient What is your living situation today?: I have a steady place to live Within the past 12 months, did the food you bought not last and you didn't have the money to get more?: I choose not to answer this question Within the past 12 months, did you worry whether your food would run out before you got money to buy more?: I choose not to answer this question Do you have trouble paying for medicines?: No Do you have trouble getting transportation to medical appointments?: No Do you have trouble paying your heating and electricity bill?: I choose not to answer this question Do you have trouble taking care of your child, family member or friend?: No Do you have trouble with day-to-day activities such as bathing, preparing meals, shopping, managing finances, etc.?: No Are you currently unemployed and looking for a job?: No Are you interested in more education?: No Please select the resources that you would like help with: None Currently or been in a relationship where the following occur: I choose not to answer THRIVE Score: 0 AUDIT C Alcohol Use Questionnaire (AUDIT-C) 1. How often do you have a drink containing alcohol?: Never Total Score: 0 Score Reviewed/Action Taken: No BALTA-7 AMB Questionnaire BALTA-7 Date BALTA - 7 assessed: 06/03/25 Feeling nervous, anxious, or on edge: 3 = Nearly every day Not being able to stop or control worryin = More than half the days Worrying too much about different things: 2 = More than half the days Trouble relaxin = More than half the days Being so restless that it is hard to sit still: 2 = More than half the days Becoming easily annoyed or irritable: 2 = More than half the days Feeling afraid as if something awful might happen: 0 = Not at all Total BALTA-7 score (0-4 normal; 5-9 mild; 10-14 moderate; 15-21 severe): 13 Source: Developed by Drs. Darrel Minaya, Cynthia Veras, Rojas Syed and colleagues, with an educational jayleen from [employer]. BALTA-7 Assessment Billing BALTA-7 Assessment Tool: BALTA-7 Assessment 89090 Review of Systems Const All systems reviewed & are unremarkable except as noted in HPI and below Card Denies chest pain at rest, Denies chest pain with activity, Denies edema, Denies irregular heart rhythm, Denies claudication, Denies dyspnea, Denies dyspnea on exertion, Denies orthopnea, Denies paroxysmal nocturnal dyspnea and Denies slow heart rate Resp Denies cough, Denies dyspnea and Denies dyspnea on exertion Musc Denies abnormal gait, Denies atrophy, Denies deformity and Denies limited range of motion Skin/Breast Denies bleeding lesions, Denies changing lesions and Denies rash Neuro Denies abnormal gait and Denies lack of coordination Physical exam (Primary Care) Vital Signs: Last Vital Signs BP 122/62 06/03/25 13:15 BMI result Body Mass Index 35.6 BMI Assessment/Plan discussion: High BMI High, discussed plan: lifestyle, weight reduction, dietary and physical activity Tobacco/Smoking Status: Tobacco use Status Tobacco use date assessed 06/03/25 06/03/25 13:22 Patient Tobacco Use Status Never used Tobacco 06/03/25 13:22 e-Cigarette/Vaping Use Never Used 06/03/25 13:22 PHQ-9: PHQ-9 Score PHQ-9: Total score 11 06/03/25 13:22 Depression Screening Interpretation: Positive Depression Screening Follow-up: Existing condition, In treatment and Follow-up Visit Requested Thrive Assessment: Date of Thrive Assessment Date Thrive assessed 01/12/25 06/03/25 13:22 Currently or been in a relationship where the following occur: I choose not to answer Resp Effort & Inspection: normal respiratory effort Auscultation: clear to auscultation bilaterally Cardio Jugular venous distension: no JVD Rate: regular rate Rhythm: regular rhythm Heart sounds: S1 normal heart sound present and S2 normal heart sound present Extrem General: Yes full ROM Results AMB Hemoglobin A1c AMB Hemoglobin A1c 5.3 % Last Edit by LEVI Davidson on 06/03/25 13 :43 Results Reviewed Results Reviewed: Laboratory Last Values Hgb A1c (Clinic) 5.3 % (4.0-6.0) 06/03/25 13:42 Coding Level of Care Code Est Pt Level 4 (17339) Complex EM visit Add On G2211 Diagnoses Bipolar disorder F31.9 Moderate recurrent major depression F33.1 Hypertension I10 Hypovitaminosis D E55.9 Migraine G43.909 Additional Codes PHQ-9 - 50552 - PHQ-9 Billing: Yes ([id number]) BALTA-7 Assessment Billing - BALTA-7 Assessment Tool: BALTA-7 Assessment 41060 ([id number]) Time Spent (min) 23 Assessment & Plan Assessment & Plan (1) Bipolar disorder: Code(s): F31.9 - Bipolar disorder, unspecified Category: Medical (2) Moderate recurrent major depression: Code(s): F33.1 - Major depressive disorder, recurrent, moderate Category: Medical (3) Hypertension: Code(s): I10 - Essential (primary) hypertension Category: Medical (4) Hypovitaminosis D: Code(s): E55.9 - Vitamin D deficiency, unspecified Category: Medical (5) Migraine: Code(s): G43.909 - Migraine, unspecified, not intractable, without status migrainosus Category: Medical Plan Continue current meds. Blood pressure goal is equal or less than 130/80. Start GLP 1 agonist. BMI goal is less than 30. Orders: Orders AMB Hemoglobin A1c Today Z13.9 - Encounter for screening, unspecified Lipid Panel 6 Months E78.5 - Hyperlipidemia, unspecified Comprehensive [place]. Panel Fast 6 Months I10 - Essential (primary) hypertension Medications: New tirzepatide (weight loss) (Zepbound) for 4 weeks 2.5 mg (0.5 mL) subcut QWEEK 2 mL 0RF 4 weeks E66.9 - Obesity, unspecified
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
== END 2025-06-03 13:57 | disposition home or self-care (01) ==
LOC: HO.HMCH 12:45
PROVIDERS: PCP Internal Medicine; Visit Provider Internal Medicine
DX: F31.9 Bipolar disorder, unspecified (principal); F33.1 Major depressive disorder, recurrent, moderate; I10 Essential (primary) hypertension; E55.9 Vitamin D deficiency, unspecified; G43.909 Migraine, unspecified, not intractable, without status migrainosus; Z13.9 Encounter for screening, unspecified

== ENCOUNTER → 2025-06-03 12:44 | Outpatient (BNVA) | payer OTHER, SELFPAY | PROVIDERS: PCP Internal Medicine; Visit Provider Internal Medicine | DX: F31.9 Bipolar disorder, unspecified (principal); I10 Essential (primary) hypertension; E55.9 Vitamin D deficiency, unspecified; G43.909 Migraine, unspecified, not intractable, without status migrainosus; Z13.31 Encounter for screening for depression; Z13.39 Encounter for screening examination for other mental health and behavioral disorders | CPT/HCPCS: 83036; 96127; 99212 ==

== ENCOUNTER 2025-06-21 13:44 | Outpatient (AMB) | payer OTHER, SELFPAY ==
--- NOTE | 2025-06-21 13:49 | A.OFFVIS_ITS ---
Intake Visit Reasons: Left breast pain Intake Note: Per patient, no lump, no discoloration, no draining. Printing Roller Polisher: Printing Roller Polisher Present (Nanette) Accompanied by: Self / Same As Patient Allergies Penicillins (PENICILLINS) Allergy (Severe, Verified 06/21/25 13:50) rash shellfish derived Allergy (Severe, Verified 06/21/25 13:50) Swelling HPI Comments Details: Presenting complaining of bilateral breast pain 04/26/2025 diagnostic an ultrasound of bilateral breast BI-RADS 3 [facility] Medical History Class 2 obesity with body mass index (BMI) of 36.0 to 36.9 in adult Moderate recurrent major depression Hypertension Hypovitaminosis D Fatigue Chronic diarrhea Asthma Depression Surgical History Hx of colonoscopy H/O lithotripsy History of tubal ligation Family History Father Liver disease Alcohol abuse Mother Diabetes Depression Hypertension Psoriasis Family/Other FH: mental illness Brother Heroin abuse Sister Anemia Hypertension Social History Housing: Apartment Are you a primary career transition specialist to a significant other at home: No Do you presently have visiting nurse or other home services: No Alcohol intake: current Alcohol intake frequency: holidays/special occasions only Alcohol type: wine Patient Tobacco Use Status: Never used Tobacco e-Cigarette/Vaping Use: Never Used Second Hand Smoke Exposure: No Substance Use Type: Marijuana service: No Current occupational status: employed 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 Current occupational exposures/hazards: No Sexual orientation: Straight/Heterosexual Gender identity: Female Cognitive needs: No Hearing needs: No Vision needs: No Female Reproductive History Menstrual Age of Menarche: 10 Physical Exam Chest Chest palpation & inspection: normal inspection of the chest Breast/axilla inspection: inspection of breasts abnormal (R brst tender 11 cm from nipple at 10, L brst tender at 3, 8 cm from nipple) Assessment & Plan Assessment & Plan (1) Pain of both breasts: Comment: R brst tender 11 cm from nipple at 10, L brst tender at 3, 8 cm from nipple Code(s): N64.4 - Mastodynia Category: Medical Plan: Discussed with the patient the finding on breast exam and bilateral diagnostic and breast ultrasound, will refer to general surgery for further management. Instructed the patient to call our office back in case a referral appointment is not scheduled, missed or canceled so that we will assist on rescheduling another appointment, the patient verbalized understanding agreed with the plan. Orders: Referrals General Surgery Referral N64.4 - Mastodynia Coding Level of Care Code Est Pt Level 3 (54955) Diagnoses Pain of both breasts N64.4
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
--- OUTSIDE RECORDS SUMMARY | 2025-06-21 15:23 | XMS_ITS | Clinical Summary ---
Author Organization [facility] Address [address] [place] [phone] Phone Care Team Providers Care Assistant Case Manager Name Role Phone Bee Ricks MD Primary Care Provider [phone] Allergies Active Allergy Reactions Criticality Noted Date [...] 02/17/2025 5:15 AM EDT Plan of Treatment Upcoming Encounters Date Type Department Care Team (Late st Contact Info) Description 10/26/2025 8:00 AM EST Office Visit Bariatric Surgery - [place] [address] [place] [address] Steven Cleaning MD [facility] [address] Health Maintenance Due Date Last Done Comments [...] 08/26/2022 Zoster Vaccines (1 of 2) 11/29/2023 Depression Screening 09/23/2024 COVID-19 Vaccine (3 - season) 2025 10/20/2021, 09/22/2021 Influenza Vaccine (#1) 2025 3, 06/28/2022, 11/20/2017, Additional history exists Hypertension/CHF/CAD Annual BMP Blood Test 07/31/2025 07/31/2024 DTaP,Tdap,and Td Vaccines (2 - Td or Tdap) 06/11/2028 06/11/2018 RSV Immunization Adult Patients (1 - 1-dose 75+ series) 2048 Hepatitis A Vaccines Aged Out 10/10/2016 No [...] mmol/L LAB CHEMISTRY METHOD 07/31/2024 3:41 AM [facility] Potassium 3.4(L) 3.5 - 5.5 mmol/L LAB CHEMISTRY METHOD 07/31/2024 3:41 AM [facility] Chloride 105 96 - 110 mmol/L LAB CHEMISTRY METHOD 07/31/2024 3:41 AM [facility] CO2 29 21 - 32 mmol/L LAB CHEMISTRY METHOD 07/31/2024 3:41 AM [facility] Anion Gap 6 3 - 11 LAB CHEMISTRY METHOD 07/31/2024 3:41 AM [facility] Glucose 163(H) 70 - 100 mg/dL LAB CHEMISTRY METHOD 07/31/2024 3:41 AM [facility] BUN 21 5 - 25 mg/dL LAB CHEMISTRY METHOD 07/31/2024 3:41 AM [facility] Creatinine 1.29(H) 0.50 - 1.10 mg/dL LAB CHEMISTRY METHOD 07/31/2024 3:41 AM [facility] eGFR 51(L) >=60 mL/min/1. 73m2 LAB CHEMISTRY METHOD 07/31/2024 3:41 AM [facility] Comment:Calculation based on the Chronic Kidney Disease Epidemiology Collaboration (CKD-EPI) equation refit without adjustment for race. BUN/Creatinine Ratio 16.3 LAB CHEMISTRY METHOD 07/31/2024 3:41 AM [facility] Calcium 9.2 8.5 - 10.5 mg/dL LAB CHEMISTRY METHOD 07/31/2024 3:41 AM [facility] AST (SGOT) 14 10 - 42 unit/L LAB CHEMISTRY METHOD 07/31/2024 3:41 AM [facility] ALT (SGPT) 19 10 - 60 unit/L LAB CHEMISTRY METHOD 07/31/2024 3:41 AM [facility] Alkaline Phosphatase 83 42 - 121 unit/L LAB CHEMISTRY METHOD 07/31/2024 3:41 AM [facility] Total Protein 7.2 6.0 - 8.0 g/dL LAB CHEMISTRY METHOD 07/31/2024 3:41 AM [facility] Albumin 3.4 3.2 - 5.0 g/dL LAB CHEMISTRY METHOD 07/31/2024 3:41 AM [facility] Total Bilirubin 0.5 0.0 - 1.4 mg/dL LAB CHEMISTRY METHOD 07/31/2024 3:41 AM [facility] Blood Venous blood specimen / Unknown Venipuncture / Unknown 07/31/2024 3:11 AM EST 07/31/2024 3:17 AM EST us Prashanth Garcia MD LAB BLOOD ORDERABLES Final Res ult [facility] [address] [place] [address], [place] [phone] from Last 3 Months or Most Recently Relevant to Health Maintenance Insurance MEDICAID - [place] [facility] Care Teams Assistant Case Manager Relationship Specialty Start Date End Date Bee Ricks MD [address] [place] [address] PCP - General Internal Medicine 07/31/24
== END 2025-06-21 14:31 | disposition home or self-care (01) ==
LOC: HO.HWS 13:45
PROVIDERS: PCP Internal Medicine; Visit Provider Obstetrics & Gynecology
DX: N64.4 Mastodynia (principal)
CPT/HCPCS: 99213

== ENCOUNTER → 2025-06-21 13:44 | Outpatient (BNVA) | payer OTHER, SELFPAY | PROVIDERS: PCP Internal Medicine; Visit Provider Obstetrics & Gynecology | DX: N64.4 Mastodynia (principal) | CPT/HCPCS: 99212 ==

== ENCOUNTER 2025-07-26 12:30 | Outpatient (AMB) | payer OTHER, SELFPAY ==
--- NOTE | 2025-07-26 12:47 | MHC.OFFVIS ---
Vital Signs 07/26/25 13:00 Height 5 ft 3 in Weight 203 lb BMI 36.0 BP 123/74 Blood Pressure Location Lt brachial Position Sitting Pulse 85 Intake Visit Reasons: mastodynia Intake Note: Patient is seen in office for mastodynia. Pt c/o: was told she has some cyst in the breast, admits to pain in the bilateral breast, right side nipple area, left side towards the axilla, does not feel any lump, pain comes and goes, pain is worse during menstrual cycle, no prior breast surgeries or concenrs, no fm hx of breast cancer, yes to breast feeding/no infections, first child age of 19 us/mm:05/16/25 Admissions Nurse Required: No Car Audio Installer: Car Audio Installer Present Accompanied by: Self / Same As Patient Allergies Penicillins (PENICILLINS) Allergy (Severe, Verified 07/26/25 12:59) rash shellfish derived Allergy (Severe, Verified 07/26/25 12:59) Swelling Medication List - Last Reconciled 07/26/25 by Alfonso Cho MD albuterol sulfate 2.5 mg (3 mL) inhalation Q4-6H PRN albuterol sulfate 90 mcg/actuation (Ventolin HFA) 2 puffs inhalation Q6H PRN blood pressure monitor As directed bupropion HCl XL 300 mg PO QAM 90 days cetirizine 10 mg PO DAILY 90 days cholecalciferol (vitamin D3) 25 mcg PO DAILY 90 days hydrochlorothiazide 25 mg PO DAILY 90 days lisinopril 5 mg PO DAILY 90 days magnesium oxide 400 mg PO BEDTIME 30 days miscellaneous medical supply 1 ea miscellaneous DAILY nebulizers (AeroEclipse II Nebulizer) As directed sumatriptan succinate 50 - 100 mg orally at onset of headache, may repeat in 2 hrs PRN; max 2 tabs per day or 4 tabs/week (may take with Ibuprofen) 30 days tamoxifen 10 mg PO DAILY tirzepatide (weight loss) (Zepbound) 2.5 mg (0.5 mL) subcut QWEEK 4 weeks topiramate XR 50 mg PO DAILY 90 days HPI Comments Details: 49-year-old female patient presenting with complaints of bilateral breast pain. This has persisted for several months and seems to increase during her menstrual cycle but never completely goes away. She normally wears a bra with the underwire however switch to a sports bra. This does not help, nor did stopping caffeine intake. A recent mammogram and ultrasound performed on 04/26/2025 revealed bilateral areas of asymmetry in the upper outer breast. No ultrasound correlate could be identified in the right breast however on the left breast an area of clustered cysts was noted at the 3 o'clock position, 8 cm from the nipple. This was felt to be probably benign. Six-month follow-up mammogram and ultrasound was recommended. She denies any palpable mass in either breast on self-examination. She is 4 para 3. Her family history is negative for breast or ovarian cancers. [facility] Medical History Class 2 obesity with body mass index (BMI) of 36.0 to 36.9 in adult Moderate recurrent major depression Hypertension Hypovitaminosis D Fatigue Chronic diarrhea Asthma Depression Surgical History Hx of colonoscopy H/O lithotripsy History of tubal ligation Family History Father Liver disease Alcohol abuse Mother Diabetes Depression Hypertension Psoriasis Family/Other FH: mental illness Brother Heroin abuse Sister Anemia Hypertension Social History Housing: Apartment Are you a primary lawn care technician to a significant other at home: No Do you presently have visiting nurse or other home services: No Alcohol intake: current Alcohol intake frequency: holidays/special occasions only Alcohol type: wine Patient Tobacco Use Status: Never used Tobacco e-Cigarette/Vaping Use: Never Used Second Hand Smoke Exposure: No Substance Use Type: Marijuana service: No Current occupational status: employed 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 Current occupational exposures/hazards: No Sexual orientation: Straight/Heterosexual Gender identity: Female Cognitive needs: No Hearing needs: No Vision needs: No Female Reproductive History Menstrual Age of Menarche: 7 Date of last menstrual period: 06/19/25 Total pregnancies: 4 Number of Living Children: 3 Ab spontaneous: 1 Physical Exam Vital Signs: Last Vital Signs Pulse 85 07/26/25 13:00 BP 123/74 07/26/25 13:00 BMI result Body Mass Index 36.0 Const General: cooperative and no acute distress Nutritional Appearance: well nourished Orientation/consciousness: patient oriented x3 Limitations: no limitations HEENT Head: Yes normocephalic and Yes atraumatic Ears: hearing grossly normal bilaterally Chest Other: Bilateral areas of breast tenderness in multiple quadrants Left breast: No skin change, no nipple retraction, no nipple discharge, no palpable mass, no enlarged lymph nodes. Right breast: No skin change, no nipple retraction, no nipple discharge, no palpable mass, no enlarged lymph nodes Resp Effort & Inspection: normal respiratory effort, no audible wheezes, no cough and no respiratory distress Cardio Jugular venous distension: no JVD GI Inspection: Yes normal to inspection Skin Other: Warm, dry, no rash Neuro General: patient oriented x3 Extrem General: Yes no clubbing, cyanosis or edema Assessment & Plan Assessment & Plan (1) Pain of both breasts: Comment: R brst tender 11 cm from nipple at 10, L brst tender at 3, 8 cm from nipple Code(s): N64.4 - Mastodynia Category: Medical Plan 49-year-old female patient with severe mastodynia involving bilateral breast. Workup revealed some small cysts in the left breast and bilateral areas of asymmetry felt to be low suspicion for malignancy. Six-month follow-up mammogram is scheduled. Examination today revealed no suspicious findings in either breast although multiple areas of tenderness or identified. I discussed the options for treatment of mastodynia all of which could have side effects. We discussed tamoxifen low-dose for a short course maybe 1-2 months. After discussion of the risks and benefits, she wishes to proceed. She will return in 1 month to assess her improvement. Medications: New tamoxifen 10 mg PO DAILY 30 tabs 1RF N64.4 - Mastodynia Coding Level of Care Code New Pt Level 4 (85470) Diagnoses Pain of both breasts N64.4
[2025-07-26 13:00] VITALS: BP 123/74; PULSE 85; BMI 36.0
== END 2025-07-26 13:15 | disposition home or self-care (01) ==
LOC: HO.HGS 12:31
PROVIDERS: PCP Internal Medicine; Visit Provider Surgery
DX: N64.4 Mastodynia (principal)
CPT/HCPCS: 99204

== ENCOUNTER → 2025-07-26 12:30 | Outpatient (BNVA) | payer OTHER, SELFPAY | PROVIDERS: PCP Internal Medicine; Visit Provider Surgery | DX: N64.4 Mastodynia (principal) | CPT/HCPCS: 99202 ==